=== PATIENT | female | born 2000 | race Caucasian/White ===

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

== ENCOUNTER 2021-12-25 16:22 | Emergency (ER) | payer OTHER, SELFPAY ==
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
[2021-12-25 16:36] VITALS: BP 116/68; PULSE 55; RESP 16; TEMP 36.8; O2SAT 100
[2021-12-25] MEDS: SILVER SULFADIAZINE 1% CR 50 GM JAR (*BKC) 1 APPLIC TOPICAL (17:01)
== END 2021-12-25 17:14 | disposition home or self-care (01) ==
PROVIDERS: Emergency Provider Nurse Practitioner
DX: T23.272A Burn of second degree of left wrist, initial encounter (principal); X11.8XXA Contact with other hot tap-water, initial encounter; F41.9 Anxiety disorder, unspecified
CPT/HCPCS: 99213; A9270; G0463

== ENCOUNTER 2022-08-29 07:19 | Emergency (ER) | payer BC, SELFPAY ==
[2022-08-29] VITALS (28 sets, daily range): BP systolic 109–143; BP diastolic 60–108; PULSE 73–114; RESP 13–24; TEMP 36.4; O2SAT 98–100
--- NOTE | 2022-08-29 07:47 | ECG_ITS ---
Measurements Intervals [place] Rate: 94 P: 75 AK: 142 QRS: 69 QRSD: 75 T: 30 QT: 380 QTc: 477 Interpretive Statements SINUS RHYTHM NORMAL ECG NO PREVIOUS ECG AVAILABLE FOR COMPARISON Electronically Signed On 08-29-2022 8:10:14 CDT by Samuel Wang D.O.
--- NOTE | 2022-08-29 07:48 | ED.GENADULT ---
HPI - General Adult General Chief complaint: Unspecified Stated complaint: ? drug ingestion Time Seen by Provider: 08/29/22 07:33 History of Present Illness HPI narrative: 22-year-old female presented to the ED for evaluation of suspected drug ingestion. Family states that the patient appeared to be slurring her words and was altered this morning. Upon arrival to the ED patient is tachycardic has dry mouth and does appear to be mildly confused. Patient states that she did not take her medications to harm herself and has no suicidal ideation. Patient does take lorazepam and multiple psych medications at night. Patient admits to taking at least 150 mg of Benadryl last night. Related Data Home Medications Medication Instructions Recorded Confirmed dextroamphetamine-amphetamine 10 10 mg PO BID 12/25/21 12/25/21 mg tablet dextroamphetamine-amphetamine ER 20 mg PO DAILY 12/25/21 12/25/21 20 mg 24hr capsule,extend release lorazepam 1 mg tablet 1 mg PO DIRECTED 12/25/21 12/25/21 zaleplon 10 mg capsule 10 mg PO DAILY 12/25/21 12/25/21 Allergies Allergy/AdvReac Type Severity Reaction Status Date / Time No Known Allergies Allergy Verified 08/29/22 08:47 Review of Systems Review of Systems: All systems reviewed & are unremarkable except as noted in HPI and below PMFSH Past Medical History Medical History No pertinent past medical history Surgical History Surgical History No pertinent past surgical history Social History Social History Substance use type: marijuana Gender identity (if verbalized by the patient): Female Exam Narrative: APPEARANCE: Patient alert but altered HEAD: normocephalic, atraumatic. EYES: PERRLA/EOMI, nystagmus NOSE: Normal no drainage EARS:TMS clear with good light reflex. THROAT: Pharynx clear, no exudate. NECK: Supple. No adenopathy, no masses. RESPIRATORY: Airway patent, respirations nonlabored. Clear to auscultation bilaterally, no rales, rhonchi, wheezing. CARDIOVASCULAR: Tachycardia ABDOMINAL: Soft, nontender, nondistended, normal bowel sounds MUSCULOSKELETAL: Moves all extremities. Strength/ROM intact, No edema, No calf tenderness. NEURO: Alert. Cranial nerves II through XII intact. Grossly intact SKIN: Warm, dry. Normal Color Course Course Emergency Course: 22-year-old female presented ED for evaluation of altered mental status. Patient arrived with some tachycardia that did improve with rest. Patient is being treated with IV normal saline. Baseline labs are being checked and poison control was consulted. Patient was medically cleared by poison control. Patient's tachycardia resolved. Patient is more alert and appropriate. Patient was encouraged to only take medications as directed and to refrain from taking excessive Benadryl. All questions and concerns were addressed and patient was well-appearing at time of discharge. Vital Signs Vital signs: Vital Signs Temperature 97.5 F L 08/29/22 07:23 Pulse Rate 113 H 08/29/22 07:23 Respiratory Rate 17 08/29/22 07:23 Blood Pressure 143/108 H 08/29/22 07:23 Pulse Oximetry 100 08/29/22 07:23 Oxygen Delivery Room Air 08/29/22 07:23 Temperature 97.5 F L 08/29/22 07:23 Pulse Rate 88 08/29/22 13:03 Respiratory Rate 16 08/29/22 13:03 Blood Pressure 109/70 08/29/22 13:03 Pulse Oximetry 100 08/29/22 13:03 Oxygen Delivery Room Air 08/29/22 07:23 Medical Decision Making Differential Diagnosis Differential Diagnosis: Intentional overdose, accidental overdose, Benadryl overdose Vital Signs Vital Signs: Vital Signs Temperature 97.5 F L 08/29/22 07:23 Pulse Rate 113 H 08/29/22 07:23 Respiratory Rate 17 08/29/22 07:23 Blood Pressure 143/108 H 08/29/22 07:23 Pulse Oximetry 100 08/29/22 07:23 Oxy
[2022-08-29] MEDS: SODIUM CHLORIDE 0.9% IV 1,000 ML 999 ML IV CONT (08:03)
--- NOTE | 2022-08-29 08:08 | PC.NURSE ---
0755 spoke with Shazia from poison control, she recommends an EKG, testing labs (CK, Mg, CMP, CBC, UDS) and calling back with results. Case #[id number]
[2022-08-29 08:21] LABS: Basophils Percent Auto 0.6 % (0.2-1.2); Eosinophils Absolute Auto 0.1 K/mm3 (0-0.3); Eosinophils Percent Auto 2.5 % (0-4.4); Hematocrit 38.7 % (37.0-47.0); Hemoglobin 12.9 g/dL (12.0-15.0); Immature Granulocyte Absolute 0.01 K/mm3 (0.00-0.031); Immature Granulocyte Percent A 0.2 % (0-0.5); Lymphocytes Absolute Auto 1.16 K/mm3 (0.9-3.2); Lymphocytes Percent Auto 24.6 % (18.3-44.2); Mean Corpuscular HGB Conc 33.3 g/dl (32-36); Mean Corpuscular Hemoglobin 30.5 pg (26-34); Mean Corpuscular Volume 91.5 fl (80-100); Mean Platelet Volume 11.1 fl (7.4-10.4); Monocytes Absolute Auto 0.4 K/mm3 (0.1-0.6); Monocytes Percent Auto 7.4 % (2.6-8.5); Neutrophils Percent Auto 64.7 % (45.5-73.1); Platelet Count Result 219 k/mm3 (150-375); Red Blood Count 4.23 M/mm3 (4.2-5.4); Red Cell Distribution Width 12.2 % (11.5-14.5); White Blood Count 4.7 K/mm3 (4.5-10.0)
[2022-08-29 08:32] LABS: Acetaminophen < 10 ug/mL (10-30); Ethanol < 10 mg/dL (<10); Magnesium 1.8 mg/dL (1.6-2.3); Salicylate < 1.0 mg/dL (2-20)
[2022-08-29 08:33] LABS: Alanine Aminotransferase 26 U/L (6-35); Albumin Level 4.6 g/dL (3.5-5.1); Alkaline Phosphatase 53 U/L (38-126); Anion Gap 9 mmol/L (8-16); Aspartate Amino Transferase 28 U/L (14-36); Bilirubin,Total 0.3 mg/dL (0.2-1.3); Blood Urea Nitrogen 10 mg/dL (7-17); Calcium 8.9 mg/dL (8.4-10.2); Carbon Dioxide 24 mmol/L (22-30); Chloride 106 mmol/L (98-107); Creatine Kinase 54 U/L (30-135); Estimated CRCL calculation 74 ml/min; Estimated Glomerular Filt Rate > 60; Glucose 97 mg/dL (65-110); Potassium 3.5 mmol/L (3.4-5.0); Sodium 139 mmol/L (137-145)
[2022-08-29 08:49] LABS: Appearance Urine Clear (Clear); Bacteria Urine None Seen /hpf; Bilirubin Urine Negative (Negative); Blood Urine 1+ (Negative); Color Urine Yellow (Yellow); Glucose Urine UA Negative (Negative); Ketones Urine Negative (Negative); Leukocyte Esterase Ur Trace LEU/UL (Negative); Nitrate Urine Negative (Negative); Non Pathogenic Casts 0-2; Protein Urine Negative (Negative); RBC Urine 0-2 /hpf (0-2); Squamous Epithelial Cell Urine Occasional /hpf (Few); Urobilinogen Urine 0.2 mg/dL (<2.0)
[2022-08-29 09:07] LABS: Amphetamine Screen Urine Positive (Negative); Barbiturate Screen Urine Negative (Negative); Benzodiazepines Screen Urine Negative (Negative); Cannabinoid Screen Urine Negative (Negative); Cocaine Screen Urine Negative (Negative); Methadone Screen Urine Negative (Negative); Opiate Screen Urine Negative (Negative); Phencyclidine Screen Urine Negative (Negative)
[2022-08-29 09:20] LABS: Add Urine Microscopic? YES
--- NOTE | 2022-08-29 11:54 | ECG_ITS ---
Measurements Intervals [place] Rate: 74 P: 32 AK: 135 QRS: 89 QRSD: 68 T: 55 QT: 384 QTc: 427 Interpretive Statements SINUS RHYTHM BASELINE ARTIFACT- V6 NORMAL ECG COMPARED TO ECG 08/29/2022 08:05:28 NO SIGNIFICANT CHANGES Electronically Signed On 08-29-2022 11:59:05 CDT by Samuel Wang D.O.
--- NOTE | 2022-08-29 12:03 | PC.NURSE ---
Anju spoke with Hellen from poison control, she stated after the recent EKG results that she was going to close the case at the pts 6 hour santosh ([id number]).
== END 2022-08-29 13:05 | disposition home or self-care (01) ==
PROVIDERS: Emergency Provider Emergency Medicine
DX: T45.0X1A Poisoning by antiallergic and antiemetic drugs, accidental (unintentional), initial encounter (principal); R47.81 Slurred speech; Z79.899 Other long term (current) drug therapy
CPT/HCPCS: 36415; 80053; 80307; 81001; 81025; 82550; 83735; 84443; 85025; 87086; 87147; 87181; 87186; 93005; 96360; 99283; J7030

== ENCOUNTER 2023-05-22 08:42 | Inpatient (IN) | payer BC, SELFPAY ==
[2023-05-22] VITALS (21 sets, daily range): BP systolic 92–121; BP diastolic 65–88; PULSE 70–120; RESP 8–26; TEMP 34.4–36.5; O2SAT 93–100; BMI 20.9
--- NOTE | ~2023-05-22 | XR_ITS ---
EXAMINATION: XR chest 1V DATE: 05/22/2023 11:38 INDICATION: Drug overdose. Low body temperature. TECHNIQUE: A single frontal view of the chest was obtained. COMPARISON: None. FINDINGS: There is no pneumonia, pleural effusion, or pneumothorax. The heart size is normal. IMPRESSION: 1. No acute cardiopulmonary disease. Reviewed, dictated and finalized at location A.
--- NOTE | ~2023-05-22 | XR_ITS ---
Portable chest x-ray Comparison: 05/25/2023 Clinical History: Respiratory failure Findings: Right-sided PICC line in place. Lungs remain clear. Cardiomediastinal silhouette is stabl e. Bones and soft tissues are unremarkable. Impression: Clear lungs. Right-sided PICC line. Reviewed, dictated and finalized at location . Impression: Clear lungs. Right-sided PICC line.
--- NOTE | ~2023-05-22 | XR_ITS ---
XR chest 1V portable DATE: 05/24/2023 05:31 INDICATION: Respiratory failure TECHNIQUE: Portable AP chest on May 24, 2023 at 0515 hours COMPARISON: May 23, 2023 portable AP chest 1453 hours May 23, 2023 CT chest abdomen pelvis FINDINGS: There are bilateral mid and particularly lower lung zone infiltrates, most prominent in the lower lobes. Normal heart size. No pneumothorax is evident. There is an approximately 1.5 x 3 cm lucent defect of the proximal to mid right humeral shaft, with n arrow zone of transition, likely benign. IMPRESSION: Persistent bilateral pulmonary infiltrates, relatively stable since May 23, 2023 conside ring technical differences Reviewed, dictated and finalized at location A. IMPRESSION: Persistent bilateral pulmonary infiltrates, relatively stable since May 23, 2023 considering technical differences
--- NOTE | ~2023-05-22 | XR_ITS ---
Portable chest x-ray Comparison: 05/26/2023 Clinical History: Respiratory failure Findings: Right-sided PICC line in place. Lungs are clear. Cardiomediastinal silhouette is stable. Bones and soft tissues are unremarkable. Impression: Clear lungs. Stable right-sided PICC line. Reviewed, dictated and finalized at location . Impression: Clear lungs. Stable right-sided PICC line.
--- NOTE | ~2023-05-22 | XR_ITS ---
EXAMINATION: XR chest 1V portable Exam Date/Time: 05/23/2023 14:45 CDT HISTORY: SOB Comparison: CT abdomen pelvis 05/23/2023. RESULT: Lines, tubes, and devices: None. Lungs and pleura: Diffuse reticular and patchy mid and lower lung groundglass and consolidative opac ities bilaterally. Small bilateral fluid collections. Cardiomediastinal silhouette: Stable. Other: No acute osseous or upper abdominal finding. IMPRESSION: Pulmonary opacities most likely represent pulmonary edema. Infection is not excluded. Small bilateral effusions. Reviewed, dictated and finalized at location K. IMPRESSION: Pulmonary opacities most likely represent pulmonary edema. Infection is not exc luded. Small bilateral effusions.
--- NOTE | ~2023-05-22 | CT_ITS ---
EXAMINATION: CT chest abdomen pelvis wo con DATE: 05/23/2023 10:27 INDICATION: Cough. Abdominal pain. Leukocytosis. TECHNIQUE: Computed tomography (CT) of the chest, abdomen, and pelvis was performed without intraveno us contrast. Automated exposure control and iterative reconstruction technique were employed. The dos e-length product was 306.95 mGy-cm. COMPARISON: None FINDINGS: CHEST CT: There are small pleural effusions, right worse than left. There are patchy groundglass and airspace o pacities in the upper lobes and lower lobes, worse in the lower lobes. The heart size is normal. No p ericardial effusion. ABDOMEN/PELVIS CT: The liver and spleen are normal. The gallbladder is normal in size. The pancreas, adrenal glands, and kidneys are normal. There are no dilated loops of bowel. The appendix is not visualized. There are n o pathologically enlarged lymph nodes. There is a moderate volume of ascites. There is mild lumbar sp ondylosis. IMPRESSION: 1. Diffuse lung disease with a posterior predominance, consistent with pneumonia versus pulmonary sharon ma. 2. Small pleural effusions. 3. Moderate volume of ascites. Reviewed, dictated and finalized at location A. IMPRESSION: 1. Diffuse lung disease with a posterior predominance, consistent with pneumoni a versus pulmonary edema. 2. Small pleural effusions. 3. Moderate volume of ascites.
--- NOTE | ~2023-05-22 | XR_ITS ---
XR chest PICC line DATE: 05/25/2023 09:33 INDICATION: PICC line placement TECHNIQUE: Portable AP chest on 05/25/2023 at 0933 hours COMPARISON: 05/25/2023 portable AP chest at 0517 hours FINDINGS: Interval placement right upper extremity PIC catheter, distal tip overlying the lower aspec t of the superior vena cava. Normal heart size. Persistent bilateral pulmonary infiltrates and mild prominence of minor fissure an d some Magdy B-lines, suggesting subpleural and pulmonary interstitial edema. Left costophrenic angl es excluded. Slight blunting of the right costophrenic angle consistent with small right pleural effu esa. Benign-appearing lytic lesion of the mid right humeral shaft. IMPRESSION: Right upper extremity PIC catheter tip overlying the lower aspect of superior vena cava Reviewed, dictated and finalized at Location A. Reviewed, dictated and finalized at location A. IMPRESSION: Right upper extremity PIC catheter tip overlying the lower aspect o f superior vena cava
--- NOTE | ~2023-05-22 | XR_ITS ---
XR chest 1V portable DATE: 05/25/2023 05:28 INDICATION: Respiratory failure TECHNIQUE: Portable AP chest on May 25, 2023 at 0517 hours COMPARISON: May 24, 2023 portable AP chest at 0515 hours FINDINGS: No significant interval change of bilateral predominantly mid and lower lung zone infiltrat es. Normal heart size. Small pleural effusions. Mild prominence of the minor fissure suggests subpleural edema. IMPRESSION: Little interval change since May 24, 2023 Reviewed, dictated and finalized at location A.
--- NOTE | 2023-05-22 09:07 | ECG_ITS ---
Measurements Intervals [place] Rate: 107 P: 75 DC: 147 QRS: 66 QRSD: 81 T: 37 QT: 342 QTc: 457 Interpretive Statements SINUS TACHYCARDIA LEFT ATRIAL ENLARGEMENT [-0.15mV P WAVE IN V1/V2] COMPARED TO ECG 08/29/2022 11:57:39 SINUS TACHYCARDIA NOW PRESENT Electronically Signed On 05-22-2023 11:05:17 CDT by Luis Manuel Sanabria M.D.
--- NOTE | 2023-05-22 09:35 | PC.NURSE ---
0934: Pt states she for sure snorted cocaine this morning around 0700 along with oxycodone.
--- NOTE | 2023-05-22 09:37 | PC.NURSE ---
0934 This RN reassessed pt and found her to be A&Ox4. Pt states feeling safe at home and denies wanting to harm herself or others at this time.
[2023-05-22 09:56] LABS: Basophils Absolute Auto 0.1 K/mm3 (0.0-0.1); Basophils Percent Auto 0.3 % (0.2-1.2); Eosinophils Absolute Auto 0.1 K/mm3 (0-0.3); Eosinophils Percent Auto 0.3 % (0-4.4); Hematocrit 51.5 % (37.0-47.0); Hemoglobin 15.7 g/dL (12.0-15.0); Immature Granulocyte Absolute 1.06 K/mm3 (0.00-0.031); Immature Granulocyte Percent A 3.5 % (0-0.5); Lymphocytes Absolute Auto 1.91 K/mm3 (0.9-3.2); Lymphocytes Percent Auto 6.3 % (18.3-44.2); Mean Corpuscular HGB Conc 30.5 g/dl (32-36); Mean Corpuscular Hemoglobin 29.3 pg (26-34); Mean Corpuscular Volume 96.1 fl (80-100); Mean Platelet Volume 10.9 fl (7.4-10.4); Monocytes Absolute Auto 0.5 K/mm3 (0.1-0.6); Monocytes Percent Auto 1.6 % (2.6-8.5); Neutrophils Absolute Auto 26.9 K/mm3 (1.3-6.7); Platelet Count Result 315 k/mm3 (150-375); Red Blood Count 5.36 M/mm3 (4.2-5.4); Red Cell Distribution Width 12.6 % (11.5-14.5); White Blood Count 30.5 K/mm3 (4.5-10.0)
[2023-05-22] MEDS: NALOXONE HCL 0.4 MG/ML VIAL IV PUSH (10:01)
[2023-05-22] MEDS: SODIUM CHLORIDE 0.9% IV 1,000 ML 999 ML IV CONT (10:01)
[2023-05-22 10:07] LABS: Alanine Aminotransferase 82 U/L (6-35); Albumin Level 5.2 g/dL (3.5-5.1); Alkaline Phosphatase 100 U/L (38-126); Anion Gap 17 mmol/L (4-12); Aspartate Amino Transferase 168 U/L (14-36); Bilirubin,Total 0.4 mg/dL (0.2-1.3); Blood Urea Nitrogen 11 mg/dL (7-17); Calcium 9.6 mg/dL (8.4-10.2); Carbon Dioxide 20 mmol/L (22-30); Chloride 106 mmol/L (98-107); Estimated Glomerular Filt Rate > 60; Glucose 236 mg/dL (65-110); Sodium 143 mmol/L (137-145)
[2023-05-22 10:08] LABS: Appearance Urine Clear (Clear); Bilirubin Urine Negative (Negative); Blood Urine 3+ (Negative); Color Urine Yellow (Yellow); Glucose Urine UA 3+ mg/dL (Negative); Ketones Urine Negative (Negative); Leukocyte Esterase Ur Negative LEU/UL (Negative); Nitrate Urine Negative (Negative); Protein Urine 1+ mg/dL (Negative); Specific Grav Ur 1.019 (1.001-1.035); Urobilinogen Urine 0.2 mg/dL (<2.0)
[2023-05-22 10:17] LABS: Amphetamine Screen Urine Positive (Negative); Barbiturate Screen Urine Negative (Negative); Benzodiazepines Screen Urine Negative (Negative); Cannabinoid Screen Urine Positive (Negative); Cocaine Screen Urine Positive (Negative); Methadone Screen Urine Negative (Negative); Opiate Screen Urine Negative (Negative); Phencyclidine Screen Urine Negative (Negative)
[2023-05-22 10:18] LABS: Acetaminophen < 10 ug/mL (10-30); Ethanol < 10 mg/dL (<10); Salicylate < 1.0 mg/dL (2-20)
[2023-05-22 10:23] LABS: Add Urine Microscopic? YES; WBC Urine 0-3 /hpf (0-3)
[2023-05-22 10:24] LABS: Squamous Epithelial Cell Urine Occasional /hpf (Few)
[2023-05-22 10:39] LABS: SARS-CoV-2 RNA PCR Negative (Negative)
[2023-05-22 11:05] LABS: Alveolar/Arterial O2 Gradient 18.8 mmHg; Base Excess ABG -5.7 mEq/l (+/-2.0); Carboxyhemoglobin 6.3 % THb (0-2.0); Fractional Inspired Oxygen 21 %; HCO3 ABG 21.7 mEq/l (22.0-26.0); Methemoglobin ABG 2.2 %THb (0-1.5); Oxygen Saturation ABG 91.8 % (95.0-100.0); PCO2 ABG 49.8 mmHg (35.0-45.0); PO2 ABG 71.3 mmHg (80.0-100.0); Reduced Hemoglobin 5.1 %THb (0-5.0)
[2023-05-22 11:06] LABS: pH ABG 7.258 (7.350-7.450)
[2023-05-22 11:07] LABS: Modified Allen's Test Pass; Oxyhemoglobin 86.4 % THb (90.0-100.0); Site Drawn LEFT RADIAL; Total Hemoglobin 5.5 g/dL (12.0-18.0)
[2023-05-22 12:35] LABS: Lactic Acid Reflex 1.7 mmol/L (0.7-2.0)
--- NOTE | 2023-05-22 12:35 | ED.GENADULT ---
HPI - General Adult General Chief complaint: Overdose Stated complaint: ams Time Seen by Provider: 05/22/23 08:47 History of Present Illness HPI narrative: patient is a 22-year-old female who presents ER with altered mental status. She was supposed to go to drug rehabilitation this morning but when her family checked on her she is acutely altered. She reports she hit that she is having trouble hearing but she seems to follow commands. She continues to say the words oxycodone. She cannot give any other history at this time. Patient is cool to touch. Family reports that patient takes drugs get high but does not have depression or intentional self-harm behavior. Related Data Home Medications Medication Instructions Recorded Confirmed dextroamphetamine-amphetamine 10 20 mg PO DAILY 12/25/21 05/22/23 mg tablet lorazepam 1 mg tablet 2 mg PO HS 12/25/21 05/22/23 cariprazine 3 mg capsule (Vraylar) 3 mg PO HS 05/22/23 05/22/23 mirtazapine 15 mg tablet 15 mg PO HS 05/22/23 05/22/23 Allergies Allergy/AdvReac Type Severity Reaction Status Date / Time No Known Allergies Allergy Verified 05/22/23 12:59 Review of Systems Review of Systems: ROS unobtainable: Yes unobtainable due to medical condition PMFSH Past Medical History Medical History Accidental overdose ADHD Bipolar 1 disorder Dental caries No pertinent past medical history Substance abuse Surgical History Surgical History H/O wisdom tooth extraction History of umbilical hernia repair No pertinent past surgical history Family History Family History (Updated 05/22/23 @ 17:09 by Addis Mariscal RN) Other Unknown family medical history Social History Social History (Updated 05/22/23 @ 15:16 by Shauna Ayala APRN) Social History: She lives with her father, mother, and sister at home. She recently quit her job at [employer] and is currently unemployed and is not currently in school. Years smoked: 5 Smoking status: Current every day smoker Tobacco type: e-cigarettes/vaping Alcohol intake: current Drinks per week: 2 Alcohol use details: Beer Substance use: current Substance use type: marijuana, crack/cocaine and prescription drug Do You Feel Safe in your Home?: Yes Lack of Transportation: No Lack of Food: Never True Current Housing: I Have Housing Concerned About Future Housing: No Difficulty Paying Gas/Electric Bills: No Difficulty Paying for Meds: No Currently Unemployed: No Education: High School Diploma/GED Difficulty w/ Childcare or Family Care: No Living arrangements: with family Occupation/Education: unemployed Gender identity (if verbalized by the patient): Female Sexual Orientation (if Verbalized by the Patient): Lesbian, Dudley, or Homosexual Spiritual care concerns: No Exam Narrative: GENERAL: Well-appearing, well-nourished, and in no acute distress. HEAD: Normocephalic, atraumatic. EYES: PERRL and EOMI. ENT: Mucous membranes moist. NECK: Supple. CHEST: Clear to auscultation. No respiratory distress. HEART: Tachycardic and regular. Normal peripheral pulses. ABDOMEN: Soft, nontender, nondistended. EXTREMITIES: Normal range of motion. No edema. SKIN: Cool, dry, no rash. NEURO: awake alert, intermittently follows commands. Will not answer orientation questions. Course Course Emergency Course: Patient given small dose of Narcan given possibility of opiate abuse. Minimal change. With time patient is now alert orient x3. Denies self-harm behavior. Patient has had some lower blood pressures in the 90s. She has received a 30 milliliter/kilogram IV fluid bolus. Patient is having no shortness of breath. She does have significant leukocytosis. ABG with a hemoglobin of 5 g/dl which does not correlate with the CBC. Patient is eating and drinking without issue. No hypo
[2023-05-22] MEDS: LACTATED RINGERS 1,000 ML 125 ML IV CONT ×2 (14:28→22:31)
--- NOTE | 2023-05-22 14:44 | PM.IMHP ---
H&P: HPI History of Present Illness Date/Time: 05/22/23 14:44 Chief Complaint: Accidental overdose Narrative: This is a 22-year-old female with a past medical history of bipolar disorder, ADHD, and substance abuse presented to the ER via private vehicle after her father found her this morning unresponsive and barely breathing. Her father Cruz, was unable to arouse her with physical stimulation and stated she was cold to the touch and gasping for air. His called 911 but he did not want to wait so he carried her to the car and brought her to the ER. On arrival to the ER she was altered and lethargic, repeating oxycodone . She was hypothermic at 93.9, blood pressure 96/83, heart rate 116. Her labs were remarkable for a white count of 3.5, hemoglobin 15.7, hematocrit 51.5, creatinine 1.10, AST 168, and ALT 82. Urine drug screen was positive for cocaine, cannabinoids, and amphetamines but the patient is currently on Adderall. She received a 2.9 L fluid bolus and naloxone 0.4 mg x 1 with little improvement. On exam the patient is resting in ER stretcher with her father, Cruz is at the bedside. The patient provides the history along with her father. Patient was set to go to [facility] in [place] today. She has a history of substance abuse citing her drug of choice of as oxycodone. Last night she met with a friend and per the patient they snorted oxycodone and cocaine. She states she has been abusing oxycodone for the last two years. She also reports vaping tobacco and drinking approximately 2 beers a week. She denies a history of IV drug use. The patient denies thoughts of wanting to harm herself or others and insists this was not an attempt to end her life. She states she has been hospitalized two other times for accidental overdoses. She has never had a suicide attempt. Her father states that her Adderall and zaleplon are kept locked up at home and he or the patient's mother dispense the medication. On exam she is drowsy but answers my questions appropriately. She denies headache, dizziness, chest pain, shortness of breath. She reports generalized abdominal pain and nausea. She denies constipation or diarrhea. She will be admitted for observation to IMU for fluid hydration and telemetry monitoring. I anticipate discharging her tomorrow to her rehab facility. The electrical contacts adjuster for [facility] of [place] is Tanja Aguirre and she saw the patient in the ED today. On discharge the facility will need medical records faxed to the admissions department. Fax number is [phone]. The cell phone for Tanja is [phone]. Review of Systems Review of Systems: All systems reviewed & are unremarkable except as noted in HPI and below PMFSH Past Medical History Medical History Accidental overdose ADHD Bipolar 1 disorder Dental caries No pertinent past medical history Substance abuse Surgical History Surgical History H/O wisdom tooth extraction History of umbilical hernia repair No pertinent past surgical history Social History Social History (Updated 05/22/23 @ 15:16 by Shauna Ayala APRN) Social History: She lives with her father, mother, and sister at home. She recently quit her job at [employer] and is currently unemployed and is not currently in school. Years smoked: 5 Smoking status: Current every day smoker Tobacco type: e-cigarettes/vaping Alcohol intake: current Drinks per week: 2 Alcohol use details: Beer Substance use: current Substance use type: marijuana, opiates and painkillers Do You Feel Safe in your Home?: Yes Lack of Transportation: No Lack of Food: Never True Current Housing: I Do Not Have Housing Concerned About Future Housing: No Difficulty Paying Gas/Electric Bills: No Difficulty Paying for Meds: No Currently Unemployed: YES Living arrangements
--- NOTE | 2023-05-22 15:26 | ADMGEN ---
This patient, Luli Veliz, was admitted to IMU Room 231-01 @ 1515. Patient/family oriented to hospital policies and general routines including ID bracelet, bed and alarms, visiting hours, pain management, procedures, bathroom and other care routines, personal items, smoking policy, room service/diet, and visiting hours. Information on how to activate the Rapid Response Team has been discussed. Patient/Family are encouraged to report perceived risks to care and to ask questions if they do not understand what they are told or what they should do.
[2023-05-22 18:25] LABS: Glucose Point of Care 116 mg/dl (65-105)
[2023-05-22] MEDS: ONDANSETRON INJ 4 MG/2 ML VIAL IV PUSH (19:34)
[2023-05-23] VITALS (38 sets, daily range): BP systolic 112–134; BP diastolic 73–110; PULSE 86–135; RESP 3–22; TEMP 36.4–37.4; O2SAT 82–98
--- NOTE | 2023-05-23 | ECHO_ITS ---
Patient Info Name: Luli Veliz Age: 22 years : 2000 Gender: Female Ht: 64 in Wt: 122 lbs BSA: 1.58 m2 HR: 110 bpm BP: 112 / 80 mmHg Heart Rhythm: Tachycardia Technical Quality: Poor Exam Date: 05/23/2023 3:42 PM Exam Location: Echo Lab Patient Status: Inpatient Admit Date: 05/23/2023 Staff Ordering Physician: Shauna Ayala APRN Collection Specialist: Jenn Montoya RDCS Attending Provider: Niki Hou MD Referring Physician: Jamie KOEHLER; Exam Type: CA echo dop color flow w con Study Info Indications - chest pain Complete two-dimensional, color flow and Doppler transthoracic echocardiogram is performed with contrast to opacify the left ventricle and to improve the deliniation of the left ventricle endocardial borders. Contrast/Agitated Saline Contrast/Ag. Saline: Definity Amount: 3.00 ml Reason for Poor Study: poor patient cooperation Summary 1. Technically difficult study with limited views. 2. Left ventricular chamber dimension is normal. 3. Left ventricular systolic function is severely reduced, estimated at <15%. There is severe hypokinesis of the mid to distal LV. 4. Right ventricular systolic function is reduced. 5. There is mild tricuspid valve regurgitation. 6. Normal inferior vena cava with <50% collapse upon inspiration consistent with elevated right atrial pressure, 8 mmHg. Left Ventricle Left ventricular chamber dimension is normal. Left ventricular systolic function is severely reduced, estimated at <15%. There is severe hypokinesis of the mid to distal LV. There is no increased left ventricular wall thickness. Right Ventricle Right ventricular chamber dimension is normal. Right ventricular systolic function is reduced. Left Atria Left atrial chamber dimension is normal. Right Atria Right atrial chamber dimension is normal. Atrial Septum Intact interatrial septum visualized by color flow imaging. Aortic Valve The aortic valve is not well visualized. There is no aortic valve stenosis. There is no aortic valve regurgitation. Pulmonic Valve The pulmonic valve is not well visualized. There is trace pulmonic regurgitation. Mitral Valve There is trace mitral valve regurgitation. Tricuspid Valve There is mild tricuspid valve regurgitation. Pericardium/Pleural There is no pericardial effusion. Inferior Vena Cava Normal inferior vena cava with <50% collapse upon inspiration consistent with elevated right atrial pressure, 8 mmHg. Aorta The aortic root size at the sinus of Valsalva is normal. Left Ventricular Outflow Tract Name Value Normal LVOT 2D LVOT Diameter 1.80 cm LVOT Doppler LVOT Peak Gradient 1 mmHg LVOT Mean Gradient 1 mmHg LVOT VTI 7.27 cm LVOT VTI/AV VTI Ratio 0.68 LVOT Stroke Volume 18.49 ml LVOT CO 1.93 l/min LVOT CI 1.22 L/min/m2 Pulmonic Valve Name Value Normal
[2023-05-23 00:05] LABS: Glucose Point of Care 134 mg/dl (65-105)
[2023-05-23] MEDS: ONDANSETRON INJ 4 MG/2 ML VIAL IV PUSH (04:49)
[2023-05-23 05:05] LABS: Basophils Percent Auto 0.2 % (0.2-1.2); Hematocrit 35.5 % (37.0-47.0); Hemoglobin 11.8 g/dL (12.0-15.0); Immature Granulocyte Absolute 0.18 K/mm3 (0.00-0.031); Immature Granulocyte Percent A 0.9 % (0-0.5); Lymphocytes Absolute Auto 0.84 K/mm3 (0.9-3.2); Lymphocytes Percent Auto 4.2 % (18.3-44.2); Mean Corpuscular HGB Conc 33.2 g/dl (32-36); Mean Corpuscular Hemoglobin 29.9 pg (26-34); Mean Corpuscular Volume 89.9 fl (80-100); Mean Platelet Volume 11.6 fl (7.4-10.4); Monocytes Absolute Auto 0.6 K/mm3 (0.1-0.6); Monocytes Percent Auto 3.1 % (2.6-8.5); Neutrophils Absolute Auto 18.3 K/mm3 (1.3-6.7); Neutrophils Percent Auto 91.6 % (45.5-73.1); Platelet Count Result 220 k/mm3 (150-375); Red Blood Count 3.95 M/mm3 (4.2-5.4); Red Cell Distribution Width 12.7 % (11.5-14.5)
[2023-05-23 05:20] LABS: Alanine Aminotransferase 40 U/L (6-35); Albumin Level 3.6 g/dL (3.5-5.1); Alkaline Phosphatase 60 U/L (38-126); Anion Gap 8 mmol/L (4-12); Aspartate Amino Transferase 61 U/L (14-36); Bilirubin,Total 0.4 mg/dL (0.2-1.3); Blood Urea Nitrogen 12 mg/dL (7-17); Calcium 8.1 mg/dL (8.4-10.2); Carbon Dioxide 19 mmol/L (22-30); Chloride 104 mmol/L (98-107); Estimated CRCL calculation 108 ml/min; Estimated Glomerular Filt Rate > 60; Glucose 138 mg/dL (65-110); Magnesium 1.6 mg/dL (1.6-2.3); Potassium 4.3 mmol/L (3.4-5.0); Sodium 131 mmol/L (137-145)
[2023-05-23 06:19] LABS: Glucose Point of Care 132 mg/dl (65-105)
[2023-05-23] MEDS: LACTATED RINGERS 1,000 ML 125 ML IV CONT (07:00)
--- NOTE | 2023-05-23 09:20 | ECG_ITS ---
Measurements Intervals [place] Rate: 109 P: 89 TX: 127 QRS: 80 QRSD: 69 T: 120 QT: 335 QTc: 452 Interpretive Statements SINUS TACHYCARDIA POSSIBLE LEFT ATRIAL ENLARGEMENT [-0.1mV P WAVE IN V1/V2] NONSPECIFIC ST & T-WAVE ABNORMALITY ABNORMAL RHYTHM ECG COMPARED TO ECG 05/22/2023 09:31:10 NONSPECIFIC T-WAVE ABNORMALITY IS NOW SEEN Electronically Signed On 05-23-2023 12:32:54 CDT by Woody Negrete M.D.
[2023-05-23] MEDS: KETOROLAC 30 MG/ML VIAL (*BKC) IV PUSH ×2 (09:37→15:04)
[2023-05-23] MEDS: FUROSEMIDE INJ 40 MG/4 ML VIAL IV PUSH ×2 (11:38→18:10)
--- NOTE | 2023-05-23 11:43 | P.PNIM_ITS ---
Progress Note: A&P Assessment and Plan (1) Acute respiratory failure: Code(s): J96.00 - Acute respiratory failure, unspecified whether with hypoxia or hypercapnia Status: Acute Assessment and Plan: SpO2 59% on room air * CT chest shows diffuse lung disease with posterior dominance, consistent with pneumonia versus pulmonary edema * Complaints of shortness of breath * Stop IV fluids * On non-rebreather * Stat IV Lasix 40 mg IV push * Alanis placed for accurate I and O * Started on CAP with aspiration coverage * Blood cultures ordered * Lactic is 2.6 * ABG pH 7.4, pCO2 32.5, PO2 58.2, HC03 22.3 * COVID negative, viral panel added. Patient and family report recent upper respiratory illness at home. (2) Accidental overdose: Code(s): T50.901A - Poisoning by unspecified drugs, medicaments and biological substances, accidental (unintentional), initial encounter Status: Acute Assessment and Plan: Reports snorting oxycodone and cocaine * Dehydrated on labs. Leukocytosis 30.5, hemoglobin 15.7, hematocrit 51.5. Cr 1.10. * Received 2.9 L NS in the ED * Currently on LR at 125 ml per hour * BP 93/65, HR 120, RR 16, 97.3, and 96% on room air * CIWA * Telemetry ordered * Admit to IMU for observation (3) Substance abuse: Code(s): F19.10 - Other psychoactive substance abuse, uncomplicated Status: Acute (4) Sepsis: Code(s): A41.9 - Sepsis, unspecified organism Status: Acute Assessment and Plan: Leukocytosis, tachycardia, tachypnea, elevated LFTs * Fluid resuscitated in the ER * Received 2900 ml as well as maintenance fluids * Fluid stopped in setting of acute respiratory failure * Lactic 2.6 * Blood cultures pending * Started on cap with aspiration pneumonia coverage * Procalcitonin is 6.5 * CRP 3.9 * Legionella and pneumococcal urine antigen as well as IgM mycoplasma have been sent (5) Congestive heart failure: Code(s): I50.9 - Heart failure, unspecified Status: Acute Assessment and Plan: CT abdomen and pelvis shows moderate ascites, CT chest shows pulmonary edema and pleural effusion * Troponins elevated 1.3 * Elevated BNP * Patient denies chest pain * EKG shows sinus tach with nonspecific T-wave changes * Echocardiogram ordered * Received ASA 324 mg p.o. once (6) Elevated troponin: Code(s): R79.89 - Other specified abnormal findings of blood chemistry Status: Acute Assessment and Plan: See 5 Plan Transferred ICU Subjective Date/time seen: 05/23/23 11:43 Interval history: This is a 22-year-old female with a past medical history of bipolar disorder, ADHD, and substance abuse presented to the ER via private vehicle after her father found her this morning unresponsive and barely breathing.? Interval history: 05/22: Received a call from nursing saying that the patient was having increased abdominal pain. On assessment patient is alert and oriented x4 but drowsy. She says that she has the same generalized abdominal pain as yesterday but it is worse today. Nursing she has had a dry cough. She has a persistent leukocytosis of 20 k/mm despite fluid hydration. She has remained afebrile overnight. I ordered a CT chest, abdomen, and pelvis to further investigate abdominal pain and leukocytosis. 1111- CT came back showing diffuse lung disease with posterior dominance, consistent with pneumonia versus pulmonary edema, bilateral small pleural effusions, and moderate volume of ascites. I will stop her IV fluids and start her
--- NOTE | 2023-05-23 11:43 | PM.IMPN ---
Progress Note: A&P Assessment and Plan (1) Acute respiratory failure: Code(s): J96.00 - Acute respiratory failure, unspecified whether with hypoxia or hypercapnia Status: Acute Assessment and Plan: SpO2 59% on room air CT chest shows diffuse lung disease with posterior dominance, consistent with pneumonia versus pulmonary edema Complaints of shortness of breath Stop IV fluids On non-rebreather Stat IV Lasix 40 mg IV push Alanis placed for accurate I and O Started on CAP with aspiration coverage Blood cultures ordered Lactic is 2.6 ABG pH 7.4, pCO2 32.5, PO2 58.2, HC03 22.3 COVID negative, viral panel added. Patient and family report recent upper respiratory illness at home. (2) Accidental overdose: Code(s): T50.901A - Poisoning by unspecified drugs, medicaments and biological substances, accidental (unintentional), initial encounter Status: Acute Assessment and Plan: Reports snorting oxycodone and cocaine Dehydrated on labs. Leukocytosis 30.5, hemoglobin 15.7, hematocrit 51.5. Cr 1.10. Received 2.9 L NS in the ED Currently on LR at 125 ml per hour BP 93/65, HR 120, RR 16, 97.3, and 96% on room air CIWA Telemetry ordered Admit to IMU for observation (3) Substance abuse: Code(s): F19.10 - Other psychoactive substance abuse, uncomplicated Status: Acute (4) Sepsis: Code(s): A41.9 - Sepsis, unspecified organism Status: Acute Assessment and Plan: Leukocytosis, tachycardia, tachypnea, elevated LFTs Fluid resuscitated in the ER Received 2900 ml as well as maintenance fluids Fluid stopped in setting of acute respiratory failure Lactic 2.6 Blood cultures pending Started on cap with aspiration pneumonia coverage Procalcitonin is 6.5 CRP 3.9 Legionella and pneumococcal urine antigen as well as IgM mycoplasma have been sent (5) Congestive heart failure: Code(s): I50.9 - Heart failure, unspecified Status: Acute Assessment and Plan: CT abdomen and pelvis shows moderate ascites, CT chest shows pulmonary edema and pleural effusion Troponins elevated 1.3 Elevated BNP Patient denies chest pain EKG shows sinus tach with nonspecific T-wave changes Echocardiogram ordered Received ASA 324 mg p.o. once (6) Elevated troponin: Code(s): R79.89 - Other specified abnormal findings of blood chemistry Status: Acute Assessment and Plan: See 5 Plan Transferred ICU Subjective Date/time seen: 05/23/23 11:43 Interval history: This is a 22-year-old female with a past medical history of bipolar disorder, ADHD, and substance abuse presented to the ER via private vehicle after her father found her this morning unresponsive and barely breathing.? Interval history: 05/22: Received a call from nursing saying that the patient was having increased abdominal pain. On assessment patient is alert and oriented x4 but drowsy. She says that she has the same generalized abdominal pain as yesterday but it is worse today. Nursing she has had a dry cough. She has a persistent leukocytosis of 20 k/mm despite fluid hydration. She has remained afebrile overnight. I ordered a CT chest, abdomen, and pelvis to further investigate abdominal pain and leukocytosis. 1111- CT came back showing diffuse lung disease with posterior dominance, consistent with pneumonia versus pulmonary edema, bilateral small pleural effusions, and moderate volume of ascites. I will stop her IV fluids and start her on CAP treatment. I came to the bedside to discuss CT results and she was getting her vitals taken showing an SpO2 of 59% on room air. Her color does appear dusky and she is tachycardic in the 120s. Lung sounds are severely diminished posteriorly with crackles in the bilateral bases. Patient was placed on 6 L nasal cannula and her sats only improved to the low 80s. She was then placed on non-rebreather. ABG shows PO2 of 58, otherwise n
[2023-05-23 11:44] LABS: Alveolar/Arterial O2 Gradient 622.3 mmHg; Base Excess ABG -0.9 mEq/l (+/-2.0); Carboxyhemoglobin 0.3 % THb (0-2.0); Fractional Inspired Oxygen 100 %; HCO3 ABG 22.3 mEq/l (22.0-26.0); Methemoglobin ABG 0.3 %THb (0-1.5); Oxygen Content ABG 15.7 %vol (16.0-22.0); Oxygen Saturation ABG 91.8 % (95.0-100.0); Oxyhemoglobin 89.2 % THb (90.0-100.0); PCO2 ABG 32.5 mmHg (35.0-45.0); PO2 ABG 58.2 mmHg (80.0-100.0); PO2 FiO2 Ratio Arterial Blood 0.58 %; Reduced Hemoglobin 10.2 %THb (0-5.0); Total Hemoglobin 12.5 g/dL (12.0-18.0); pH ABG 7.454 (7.350-7.450)
[2023-05-23 11:49] LABS: Device NON-REBREATHER MASK; Modified Allen's Test Pass; Site Drawn LEFT RADIAL
[2023-05-23 12:07] LABS: Glucose Point of Care 109 mg/dl (65-105)
[2023-05-23 12:28] LABS: Lactic Acid Reflex 2.6 mmol/L (0.7-2.0)
[2023-05-23 12:31] LABS: Alanine Aminotransferase 43 U/L (6-35); Alkaline Phosphatase 66 U/L (38-126); Anion Gap 5 mmol/L (4-12); Aspartate Amino Transferase 66 U/L (14-36); Bilirubin,Total 0.4 mg/dL (0.2-1.3); Blood Urea Nitrogen 11 mg/dL (7-17); Calcium 8.1 mg/dL (8.4-10.2); Carbon Dioxide 26 mmol/L (22-30); Chloride 102 mmol/L (98-107); Estimated CRCL calculation 108 ml/min; Estimated Glomerular Filt Rate > 60; Glucose 114 mg/dL (65-110); Sodium 133 mmol/L (137-145)
[2023-05-23 13:12] LABS: NT Pro B Type Natriuretic Pept 8570 pg/mL (19.9-100)
[2023-05-23] MEDS: cefTRIAXone 2 GM/NS 100 ML 2 GM/100 ML BAG IVPB (13:12)
[2023-05-23] MEDS: metroNIDAZOLE 500 MG TABLET PO (13:13)
[2023-05-23] MEDS: AZITHROMYCIN 500 MG/NS 250 ML 500 MG/250 ML BAG 250 MG IVPB (13:16)
[2023-05-23 13:30] LABS: Procalcitonin 6.5 ng/mL
[2023-05-23 13:38] LABS: CRP 3.9 mg/dL (<1.0)
[2023-05-23] MEDS: LEVALBUTEROL NEB 1.25 MG/3 ML INHALATION ×2 (13:44→20:19)
[2023-05-23 15:14] LABS: Reflex Lactic Acid Yes or No Add Lactic
--- NOTE | 2023-05-23 15:14 | WPDCNINT ---
Assessment and Plan Assessment and plan (1) Acute respiratory failure: Code(s): J96.00 - Acute respiratory failure, unspecified whether with hypoxia or hypercapnia Status: Acute Assessment and Plan: Gradually worsening hypoxia after admission with overdose with oxycodone and chronic cocaine abuse. She also received 1 dose of Narcan in the ER. She states that she had URI like symptoms along with the family members even prior to this incident. CT scan done today shows IMPRESSION: 1. Diffuse lung disease with a posterior predominance, consistent with pneumonia versus pulmonary edema. 2. Small pleural effusions. 3. Moderate volume of ascites. COVID PCR is negative BNP is elevated 8570 This appears to be combination of pulmonary edema and pneumonia which could be aspiration. Patient may have had community-acquired pneumonia prior to this incident. ARDS or a postviral pneumonia. Patient may have cardiomyopathy from chronic cocaine abuse leading to elevated BNP pleural effusions and pulmonary edema which got exacerbated by IV fluids that she received post admission. She is hypoxic but does not appear to be in respiratory distress. Transfer patient to ICU. Discussed trial of BiPAP with patient's and she is willing to try with positive pressure may help with atelectasis and pulmonary edema Lasix IV given already on the floor. I will repeat another dose later in the evening after checking electrolytes Antibiotics changed to vancomycin Zosyn and doxycycline Blood cultures have been Sent Viral panel will be sent. Check Legionella and pneumococcal urine antigen. Check IgM mycoplasma Repeat ABG (2) Accidental drug overdose: Code(s): T50.901A - Poisoning by unspecified drugs, medicaments and biological substances, accidental (unintentional), initial encounter Status: Acute Assessment and Plan: Patient overdosed with oxycodone and also uses regularly cannabinoids and cocaine Mental status now is at baseline and she is AO x3 Monitor (3) Polysubstance abuse: Code(s): F19.10 - Other psychoactive substance abuse, uncomplicated Status: Acute Assessment and Plan: Patient was planning to go to drug rehab (4) Pneumonia: Code(s): J18.9 - Pneumonia, unspecified organism Status: Acute Assessment and Plan: See above (5) Pleural effusion: Code(s): J90 - Pleural effusion, not elsewhere classified Status: Acute Assessment and Plan: See above (6) Elevated troponin: Code(s): R79.89 - Other specified abnormal findings of blood chemistry Status: Acute Assessment and Plan: Patient has elevated troponin. Her EKG shows nonspecific ST-T changes and she is chest pain-free Elevated troponin could be likely secondary to cocaine induced vasospasm, takotsubo cardiomyopathy or stress from respiratory failure Continue serial troponin Will check echocardiogram (7) Congestive heart failure: Code(s): I50.9 - Heart failure, unspecified Status: Acute Assessment and Plan: Patient has elevated BNP and pleural effusions. She also has ascites Although patient has received IV fluids since admission and 1 dose of Narcan in the ER but it possible that the patient may have cardiomyopathy secondary to chronic cocaine abuse. Lasix IV given and I will repeat Lasix dose again later in the evening after checking her electrolytes Echocardiogram has been ordered and pending (8) Sepsis: Code(s): A41.9 - Sepsis, unspecified organism Status: Acute Assessment and Plan: Sepsis secondary to pneumonia, UA negative Her hemodynamics are stable at this time Check lactic acid level Blood cultures have been sent and are pending (9) Pleuritic chest pain: Code(s): R07.81 - Pleurodynia Status: Acute Assessment and Plan: Secondary to constant coughing cocaine and ammonia Pain medications ordered Plan DVT prophylaxis -Lovenox
--- NOTE | 2023-05-23 15:37 | PC.NURSE ---
Patient transferred to ICU [address] Gimenez at bedside. Patient placed on bipap as ordered.
[2023-05-23 15:47] LABS: Alveolar/Arterial O2 Gradient 323.2 mmHg; Device NON-INVASIVE VENT; Fractional Inspired Oxygen 60 %; HCO3 ABG 22.7 mEq/l (22.0-26.0); Modified Allen's Test Pass; Oxygen Content ABG 16.4 %vol (16.0-22.0); Oxygen Saturation ABG 95.3 % (95.0-100.0); Oxyhemoglobin 93.2 % THb (90.0-100.0); PCO2 ABG 31.3 mmHg (35.0-45.0); PO2 ABG 70.2 mmHg (80.0-100.0); PO2 FiO2 Ratio Arterial Blood 1.17 %; Site Drawn RIGHT RADIAL; Total Hemoglobin 12.5 g/dL (12.0-18.0); pH ABG 7.479 (7.350-7.450)
[2023-05-23 15:48] LABS: Non-Invasive Expiratory Pressure 6 CMH2O; Non-Invasive Inspiratory Pressure 12 CMH2O; Non-Invasive Vent Rate 12 /MIN
[2023-05-23] MEDS: PERFLUTREN LIPID MICROSPHERES 1.5 ML VIAL DILUTED TO 10 ML TOTAL VOLUME IV PUSH (15:50)
[2023-05-23 15:52] LABS: Anion Gap 7 mmol/L (4-12); Blood Urea Nitrogen 13 mg/dL (7-17); Calcium 7.8 mg/dL (8.4-10.2); Carbon Dioxide 23 mmol/L (22-30); Chloride 104 mmol/L (98-107); Estimated CRCL calculation 108 ml/min; Estimated Glomerular Filt Rate > 60; Glucose 135 mg/dL (65-110); Magnesium 1.6 mg/dL (1.6-2.3); Potassium 3.5 mmol/L (3.4-5.0); Sodium 134 mmol/L (137-145)
--- NOTE | 2023-05-23 16:03 | PC.NURSE ---
RT and broker in charge called to bedside due to patient Oxygen Saturation rapidly dropping despite Being previously stable on HFNC 8-10 L. Pt drowsy but responsive, no dyspnea or increase WOB noted. HR Sinus Tach 120s-130s otherwise VSS. Stat chest XRay ordered, patient on HFNC without improvement, places on nonrebreather with minimal improvement, Air Vo initiated. Dr. Gimenez to bedside, pt transferred to ICU for BiPAP and higher level of care/closer observation. Father at bedside and updated on situation, interventions, and verbalizes understanding. Pt verbalizes understanding.
[2023-05-23 16:04] LABS: Amphetamine Screen Urine Negative (Negative); Barbiturate Screen Urine Negative (Negative); Benzodiazepines Screen Urine Negative (Negative); Cannabinoid Screen Urine Positive (Negative); Cocaine Screen Urine Positive (Negative); Methadone Screen Urine Negative (Negative); Opiate Screen Urine Negative (Negative); Phencyclidine Screen Urine Negative (Negative)
[2023-05-23] MEDS: VANCOMYCIN 1,500 MG/NS 500 ML 1,500 MG/500 ML BAG 250 MG IVPB (16:04)
[2023-05-23] MEDS: ASPIRIN 81 MG CHEWABLE TABLET 324 MG PO (16:05)
[2023-05-23] MEDS: DOXYCYCLINE 100 MG/NS 100 ML 100 MG/100 ML BAG IVPB (16:16)
--- NOTE | 2023-05-23 16:17 | IVDEFINITY ---
Prior to administration of IV Definity the patient was educated on the risks and benefits of the imaging enhancing agent including potential adverse side effects. The patient verbalized understanding. Allergies were verified. No exclusion criteria were identified and at least one of the following inclusion criteria were met: 1) physician request, 2) patient technically difficult to image (per the [place] [employer] guidelines of two or more segments not discernable within the apical view), or 3) questionable left ventricular function. ?
[2023-05-23 16:39] LABS: Influenza A QL RT-PCR Negative (Negative); Influenza B QL RT-PCR Negative (Negative); RSV RNA, RT-PCR Negative (Negative); SARS-CoV-2 RNA PCR Negative (Negative)
[2023-05-23] MEDS: MAGNESIUM SULF 2 GM/WATER 50ML 2 GM/50 ML BAG IVPB (17:02)
[2023-05-23] MEDS: POTASSIUM CHLORIDE INJ 40 MEQ in SODIUM CHLORIDE 0.9% IV 500 ML 130 MEQ IVPB (17:02)
[2023-05-23 17:36] LABS: MRSA (PCR) NOT DETECTED (NOT DETECTE)
[2023-05-23 18:10] LABS: Troponin I 0.943 ng/mL (0.000-0.034)
[2023-05-23] MEDS: PIPERACILLN/TAZ 3.375GM/NS50ML 3.375 GM/50 ML BAG IVPB ×2 (18:10→23:18)
[2023-05-23] MEDS: MIRTAZAPINE 15 MG TABLET PO (20:33)
[2023-05-23 23:01] LABS: Anion Gap 7 mmol/L (4-12); Blood Urea Nitrogen 11 mg/dL (7-17); Calcium 7.5 mg/dL (8.4-10.2); Carbon Dioxide 24 mmol/L (22-30); Chloride 104 mmol/L (98-107); Estimated CRCL calculation 108 ml/min; Estimated Glomerular Filt Rate > 60; Glucose 132 mg/dL (65-110); Magnesium 2.1 mg/dL (1.6-2.3); Potassium 3.6 mmol/L (3.4-5.0); Sodium 135 mmol/L (137-145)
[2023-05-24] VITALS (36 sets, daily range): BP systolic 111–136; BP diastolic 75–108; PULSE 89–126; RESP 14–27; TEMP 36.9–37.3; O2SAT 88–100
[2023-05-24] MEDS: POTASSIUM CHLORIDE INJ 40 MEQ in SODIUM CHLORIDE 0.9% IV 500 ML 130 MEQ IVPB (00:07)
[2023-05-24] MEDS: FAMOTIDINE 20 MG/2 ML VIAL IV PUSH ×3 (00:07→20:44)
[2023-05-24] MEDS: LEVALBUTEROL NEB 1.25 MG/3 ML INHALATION ×4 (02:13→20:30)
[2023-05-24] MEDS: DOXYCYCLINE 100 MG/NS 100 ML 100 MG/100 ML BAG IVPB ×2 (04:53→15:57)
[2023-05-24] MEDS: VANCOMYCIN 1,000 MG/NS 250 ML 1,000 MG/250 ML BAG 250 MG IVPB ×2 (04:53→17:38)
[2023-05-24] MEDS: PIPERACILLN/TAZ 3.375GM/NS50ML 3.375 GM/50 ML BAG IVPB ×3 (05:09→17:38)
[2023-05-24 06:34] LABS: Hematocrit 33.2 % (37.0-47.0); Mean Corpuscular HGB Conc 33.1 g/dl (32-36); Mean Corpuscular Hemoglobin 29.3 pg (26-34); Mean Corpuscular Volume 88.5 fl (80-100); Mean Platelet Volume 11.9 fl (7.4-10.4); Platelet Count Result 198 k/mm3 (150-375); Red Blood Count 3.75 M/mm3 (4.2-5.4); Red Cell Distribution Width 12.8 % (11.5-14.5)
[2023-05-24 06:44] LABS: Alanine Aminotransferase 32 U/L (6-35); Albumin Level 3.4 g/dL (3.5-5.1); Alkaline Phosphatase 65 U/L (38-126); Anion Gap 6 mmol/L (4-12); Aspartate Amino Transferase 39 U/L (14-36); Bilirubin,Total 0.6 mg/dL (0.2-1.3); Blood Urea Nitrogen 13 mg/dL (7-17); Calcium 7.7 mg/dL (8.4-10.2); Carbon Dioxide 22 mmol/L (22-30); Chloride 107 mmol/L (98-107); Estimated CRCL calculation 94 ml/min; Estimated Glomerular Filt Rate > 60; Glucose 148 mg/dL (65-110); Magnesium 2.1 mg/dL (1.6-2.3); Potassium 3.9 mmol/L (3.4-5.0); Sodium 135 mmol/L (137-145)
--- NOTE | 2023-05-24 08:34 | WPDINTPN ---
Progress Note: A&P Assessment and Plan (1) Acute respiratory failure: Code(s): J96.00 - Acute respiratory failure, unspecified whether with hypoxia or hypercapnia Status: Acute Assessment and Plan: Gradually worsening hypoxia after admission with overdose with oxycodone and chronic cocaine abuse. She also received 1 dose of Narcan in the ER. She states that she had URI like symptoms along with the family members even prior to this incident. She also admits to vape and smoke marijuana CT scan done today shows IMPRESSION: 1. Diffuse lung disease with a posterior predominance, consistent with pneumonia versus pulmonary edema. 2. Small pleural effusions. 3. Moderate volume of ascites. COVID PCR is negative BNP is elevated 8570 CRP and WBC elevated This appears to be combination of pulmonary edema and pneumonia which could be aspiration. Patient may have had community-acquired pneumonia prior to this incident as it cannot be completely ruled out. ARDS or a postviral pneumonia is in the possible. Patient may have cardiomyopathy from chronic cocaine abuse leading to elevated BNP, pleural effusions and pulmonary edema which got exacerbated by IV fluids that she received post admission. She is hypoxic but does not appear to be in respiratory distress. Transfer patient to ICU. Discussed trial of BiPAP with patient's and she is willing to try with positive pressure may help with atelectasis and pulmonary edema Lasix IV given already on the floor. I will repeat another dose later in the evening after checking electrolytes Antibiotics changed to vancomycin Zosyn and doxycycline Blood cultures have been Sent Viral panel will be sent. Check Legionella and pneumococcal urine antigen. Check IgM mycoplasma Repeat ABG 4/6 viral PCR for influenza COVID and RSV were negative Patient wore BiPAP intermittently overnight and clinically feels better and does not appear in respiratory distress. She is on 50 L 50% high-flow nasal cannula. I will hold further Lasix as patient does not appear to have any crackles on exam or edema on lower extremities. Echo is pending Other microbiology studies are pending. WBCs down to 17 Continue current antibiotics in the form of vancomycin Zosyn and doxycycline Start clear liquid diet Incentive spirometry, up in chair (2) Accidental drug overdose: Code(s): T50.901A - Poisoning by unspecified drugs, medicaments and biological substances, accidental (unintentional), initial encounter Status: Acute Assessment and Plan: Patient overdosed with oxycodone and also uses regularly cannabinoids and cocaine Mental status now is at baseline and she is AO x3 Monitor (3) Polysubstance abuse: Code(s): F19.10 - Other psychoactive substance abuse, uncomplicated Status: Acute Assessment and Plan: Patient admits to snorting cocaine, using Oxy, smoking marijuana and regular vaping. Patient was planning to go to drug rehab (4) Pneumonia: Code(s): J18.9 - Pneumonia, unspecified organism Status: Acute Assessment and Plan: See above (5) Pleural effusion: Code(s): J90 - Pleural effusion, not elsewhere classified Status: Acute Assessment and Plan: See above (6) Elevated troponin: Code(s): R79.89 - Other specified abnormal findings of blood chemistry Status: Acute Assessment and Plan: Patient has elevated troponin. Her EKG shows nonspecific ST-T changes and she is chest pain-free Elevated troponin could be likely secondary to cocaine induced vasospasm, takotsubo cardiomyopathy or stress from respiratory failure Serial troponins shows downward trend echocardiogram has been done and report pending (7) Congestive heart failure: Code(s): I50.9 - Heart failure, unspecified Status: Acute Assessment and Plan: Patient has elevated BNP and pleural effusions. She also has ascites Although patient has received IV f
[2023-05-24 09:59] LABS: Lipase 2339 U/L (23-300)
--- NOTE | 2023-05-24 10:03 | PM.CNCAR ---
Assessment and Plan Assessment and plan (1) Congestive heart failure: Code(s): I50.9 - Heart failure, unspecified Status: Acute Assessment and Plan: Concern for congestive heart failure due to pulmonary edema, pleural effusions, elevated NT pro BNP. Echocardiogram ordered and pending. Agree with intermittent IV Lasix as tolerated. Please monitor I/Os. (2) Acute respiratory failure: Code(s): J96.00 - Acute respiratory failure, unspecified whether with hypoxia or hypercapnia Status: Acute Assessment and Plan: Chest imaging with pulmonary edema, pleural effusions. Could be cardiogenic pulmonary edema vs noncardiogenic pulmonary edema. Agree with intermittent IV Lasix as tolerated. Also being treated for pneumonia. (3) Accidental drug overdose: Code(s): T50.901A - Poisoning by unspecified drugs, medicaments and biological substances, accidental (unintentional), initial encounter Status: Acute Assessment and Plan: UDS positive for cocaine and cannabinoids (4) Elevated troponin: Code(s): R79.89 - Other specified abnormal findings of blood chemistry Status: Acute Assessment and Plan: In the setting of drug overdose, cocaine use, acute hypoxic respiratory failure. Likely demand ischemia, doubt an acute plaque rupture. No chest pain. EKGs without ischemic changes. Echocardiogram ordered and pending. Plan Recommendations and plan discussed with [facility]. History of Present Illness History of Present Illness Consult date/time: 05/24/23 10:03 Requesting physician: Laci Gimenez MD Consult reason: Other (Elevated troponin, congestive heart failure) Reason For Visit: UNINTENTIONAL DRUG OVERDOSE Narrative: We are consulted for elevated troponin, congestive heart failure. This is a 22 year old female with substance abuse who presented with altered mental status secondary to drug overdose. Patient uses cocaine couple times a week by snorting. Also took Oxycodone 05/20. Patient was initially admitted to the step down unit, however, due to hypoxic respiratory failure and worsening respiratory status, she was transferred to ICU 05/22. At this time, patient states she is feeling better. No shortness of breath at rest. Remains on high flow nasal cannula. Patient reports a history of PVCs, otherwise, no other cardiac issues. No chest pain. EKG with sinus tachycardia with nonspecific STTW abnormality. Troponins of 1.320, 1.040, 0.943. NT pro BNP of 8570. Review of Systems Review of Systems: All systems reviewed & are unremarkable except as noted in HPI and below (HPI) [facility] Past Medical History Medical History Accidental overdose ADHD Bipolar 1 disorder Dental caries No pertinent past medical history Substance abuse Surgical History Surgical History H/O wisdom tooth extraction History of umbilical hernia repair No pertinent past surgical history Family History Family History Other Unknown family medical history Social History Social History Social History: She lives with her father, mother, and sister at home. She recently quit her job at [employer] and is currently unemployed and is not currently in school. Years smoked: 5 Smoking status: Current every day smoker Tobacco type: e-cigarettes/vaping Alcohol intake: current Drinks per week: 2 Alcohol use details: Beer Substance use: current Substance use type: marijuana, crack/cocaine and prescription drug Do You Feel Safe in your Home?: Yes Lack of Transportation: No Lack of Food: Never True Current Housing: I Have Housing Concerned About Future Housing: No Difficulty Paying Gas/Electric Bills: No Difficulty Paying for Meds: No Currently Unemployed: No Education: High School D
[2023-05-24 12:05] LABS: Glucose Point of Care 131 mg/dl (65-105)
[2023-05-24] MEDS: FUROSEMIDE INJ 40 MG/4 ML VIAL IV PUSH (14:03)
[2023-05-24] MEDS: carvediloL 3.125 MG TABLET PO ×2 (14:08→20:44)
[2023-05-24 18:41] LABS: Glucose Point of Care 144 mg/dl (65-105)
[2023-05-24] MEDS: MIRTAZAPINE 15 MG TABLET PO (20:43)
[2023-05-25] VITALS (34 sets, daily range): BP systolic 99–162; BP diastolic 63–111; PULSE 62–116; RESP 15–26; TEMP 36.2–37.7; O2SAT 95–100
[2023-05-25] MEDS: PIPERACILLN/TAZ 3.375GM/NS50ML 3.375 GM/50 ML BAG IVPB ×5 (00:30→23:20)
[2023-05-25 00:37] LABS: Glucose Point of Care 129 mg/dl (65-105)
[2023-05-25] MEDS: LEVALBUTEROL NEB 1.25 MG/3 ML INHALATION ×4 (02:58→20:43)
[2023-05-25] MEDS: DOXYCYCLINE 100 MG/NS 100 ML 100 MG/100 ML BAG IVPB ×2 (03:23→16:50)
[2023-05-25 04:07] LABS: Hemoglobin 11.6 g/dL (12.0-15.0); Mean Corpuscular HGB Conc 32.2 g/dl (32-36); Mean Corpuscular Hemoglobin 28.7 pg (26-34); Mean Corpuscular Volume 89.1 fl (80-100); Mean Platelet Volume 11.8 fl (7.4-10.4); Platelet Count Result 225 k/mm3 (150-375); Red Blood Count 4.04 M/mm3 (4.2-5.4); Red Cell Distribution Width 12.6 % (11.5-14.5); White Blood Count 18.3 K/mm3 (4.5-10.0)
[2023-05-25 04:19] LABS: Alanine Aminotransferase 35 U/L (6-35); Albumin Level 3.5 g/dL (3.5-5.1); Alkaline Phosphatase 69 U/L (38-126); Anion Gap 5 mmol/L (4-12); Aspartate Amino Transferase 34 U/L (14-36); Bilirubin,Total 0.9 mg/dL (0.2-1.3); Blood Urea Nitrogen 14 mg/dL (7-17); Carbon Dioxide 25 mmol/L (22-30); Chloride 103 mmol/L (98-107); Estimated CRCL calculation 94 ml/min; Estimated Glomerular Filt Rate > 60; Glucose 143 mg/dL (65-110); Magnesium 1.9 mg/dL (1.6-2.3); Potassium 3.1 mmol/L (3.4-5.0); Sodium 133 mmol/L (137-145)
[2023-05-25 04:25] LABS: NT Pro B Type Natriuretic Pept 24500 pg/mL (19.9-100); Vancomycin Trough 8.2 ug/mL (10.0-20.0)
[2023-05-25] MEDS: VANCOMYCIN 1,250 MG/NS 250 ML 1,250 MG/250 ML BAG 166.67 MG IVPB (05:55)
[2023-05-25 08:21] LABS: Triglycerides 101 mg/dL (<150)
[2023-05-25] MEDS: carvediloL 3.125 MG TABLET PO ×2 (08:29→21:33)
[2023-05-25] MEDS: LOSARTAN POTASSIUM 12.5 MG TABLET PO (08:29)
[2023-05-25] MEDS: FAMOTIDINE 20 MG/2 ML VIAL IV PUSH ×2 (08:29→21:33)
--- NOTE | 2023-05-25 08:34 | WPDINTPN ---
Progress Note: A&P Assessment and Plan (1) Acute respiratory failure: Code(s): J96.00 - Acute respiratory failure, unspecified whether with hypoxia or hypercapnia Status: Acute Assessment and Plan: Gradually worsening hypoxia after admission with overdose with oxycodone and chronic cocaine abuse. She also received 1 dose of Narcan in the ER. She states that she had URI like symptoms along with the family members even prior to this incident. She also admits to vape and smoke marijuana CT scan done today shows IMPRESSION: 1. Diffuse lung disease with a posterior predominance, consistent with pneumonia versus pulmonary edema. 2. Small pleural effusions. 3. Moderate volume of ascites. COVID PCR is negative BNP is elevated 8570 CRP and WBC elevated This appears to be combination of pulmonary edema and pneumonia which could be aspiration. Patient may have had community-acquired pneumonia prior to this incident as it cannot be completely ruled out. ARDS or a postviral pneumonia is in the possible. Patient has cardiomyopathy likely from from chronic cocaine abuse leading to elevated BNP, pleural effusions and pulmonary edema which got exacerbated by IV fluids that she received post admission. She is hypoxic but does not appear to be in respiratory distress. Transfer patient to ICU. Discussed trial of BiPAP with patient's and she is willing to try with positive pressure may help with atelectasis and pulmonary edema Lasix IV given already on the floor. I will repeat another dose later in the evening after checking electrolytes Antibiotics changed to vancomycin Zosyn and doxycycline Blood cultures have been Sent Viral panel will be sent. Check Legionella and pneumococcal urine antigen. Check IgM mycoplasma Repeat ABG / viral PCR for influenza COVID and RSV were negative Patient wore BiPAP intermittently overnight and clinically feels better and does not appear in respiratory distress. She is on 50 L 50% high-flow nasal cannula. I will hold further Lasix as patient does not appear to have any crackles on exam or edema on lower extremities. Echo is pending 05/24 oxygen requirement improved to 40% FiO2 and 40 L flow. Continue Airvo. Up in chair. Continue incentive spirometry Continue diuresis Other microbiology studies are pending. WBCs elevated at 18 but afebrile Nasal MRSA screen is negative Continue current antibiotics in the form of vancomycin Zosyn and doxycycline Continue clear liquid diet (2) Accidental drug overdose: Code(s): T50.901A - Poisoning by unspecified drugs, medicaments and biological substances, accidental (unintentional), initial encounter Status: Acute Assessment and Plan: Patient overdosed with oxycodone and also uses regularly cannabinoids and cocaine Mental status now is at baseline and she is AO x3 Monitor (3) Polysubstance abuse: Code(s): F19.10 - Other psychoactive substance abuse, uncomplicated Status: Acute Assessment and Plan: Patient admits to snorting cocaine, using Oxy, smoking marijuana and regular vaping. Patient was planning to go to drug rehab (4) Pneumonia: Code(s): J18.9 - Pneumonia, unspecified organism Status: Acute Assessment and Plan: See above (5) Pleural effusion: Code(s): J90 - Pleural effusion, not elsewhere classified Status: Acute Assessment and Plan: See above (6) Elevated troponin: Code(s): R79.89 - Other specified abnormal findings of blood chemistry Status: Acute Assessment and Plan: Patient has elevated troponin. Her EKG shows nonspecific ST-T changes and she is chest pain-free Elevated troponin could be likely secondary to cocaine induced vasospasm, takotsubo cardiomyopathy or stress from respiratory failure Serial troponins shows downward trend echocardiogram has been done and report pending (7) Congestive heart failure: Code(s): I50.9 - Heart fail
--- NOTE | 2023-05-25 08:55 | PC.NURSE ---
Patient c/o burning at both peripheral IV sites. Dr. Gimenez notified, PICC line insertion ordered. Patient requested her father to be updated on status. Father did not answer telephone when attempted to contact.
[2023-05-25] MEDS: LIDOCAINE HCL 1% PF INJ 5 ML VIAL INFILTRATE (09:15)
[2023-05-25] MEDS: KCL 40 MEQ/WATER 100 ML 100 ML 25 ML IVPB (12:00)
[2023-05-25] MEDS: POTASSIUM CHLORIDE 20 MEQ ER TABLET 40 MEQ PO ×2 (12:00→16:58)
--- NOTE | 2023-05-25 12:00 | PC.NURSE ---
Patient received 40meQ Potassium Chloride tablet. Nausea with scant yellow emesis noted. No sign of pills noted in emesis.
[2023-05-25 12:54] LABS: Glucose Point of Care 152 mg/dl (65-105)
[2023-05-25] MEDS: CENTRAL LINE FLUSH 10 ML IV PUSH ×2 (13:28→21:33)
[2023-05-25] MEDS: VANCOMYCIN 1,250 MG/NS 250 ML 1,250 MG/250 ML BAG 166 MG IVPB (13:29)
[2023-05-25] MEDS: ONDANSETRON INJ 4 MG/2 ML VIAL IV PUSH (15:18)
[2023-05-25] MEDS: FUROSEMIDE INJ 40 MG/4 ML VIAL IV PUSH (16:50)
[2023-05-25 17:45] LABS: Anion Gap 2 mmol/L (4-12); Blood Urea Nitrogen 15 mg/dL (7-17); Calcium 8.2 mg/dL (8.4-10.2); Carbon Dioxide 27 mmol/L (22-30); Chloride 105 mmol/L (98-107); Estimated CRCL calculation 67 ml/min; Estimated Glomerular Filt Rate > 60; Glucose 134 mg/dL (65-110); Potassium 3.7 mmol/L (3.4-5.0); Sodium 134 mmol/L (137-145)
[2023-05-25] MEDS: VANCOMYCIN 1,250 MG/NS 250 ML 1,250 MG/250 ML BAG 167 MG IVPB (21:28)
[2023-05-25] MEDS: MIRTAZAPINE 15 MG TABLET PO (21:33)
[2023-05-25 23:32] LABS: Glucose Point of Care 115 mg/dl (65-105)
[2023-05-26] VITALS (24 sets, daily range): BP systolic 97–118; BP diastolic 64–83; PULSE 76–100; RESP 12–20; TEMP 36.6–37.4; O2SAT 91–100
[2023-05-26] MEDS: LEVALBUTEROL NEB 1.25 MG/3 ML INHALATION ×4 (02:44→19:51)
[2023-05-26] MEDS: DOXYCYCLINE 100 MG/NS 100 ML 100 MG/100 ML BAG IVPB ×2 (04:51→16:20)
[2023-05-26] MEDS: PIPERACILLN/TAZ 3.375GM/NS50ML 3.375 GM/50 ML BAG IVPB ×4 (05:00→23:49)
[2023-05-26] MEDS: CENTRAL LINE FLUSH 10 ML IV PUSH ×3 (05:01→20:50)
[2023-05-26 05:19] LABS: Hematocrit 34.6 % (37.0-47.0); Hemoglobin 11.5 g/dL (12.0-15.0); Mean Corpuscular HGB Conc 33.2 g/dl (32-36); Mean Corpuscular Hemoglobin 29.1 pg (26-34); Mean Corpuscular Volume 87.6 fl (80-100); Mean Platelet Volume 11.8 fl (7.4-10.4); Platelet Count Result 206 k/mm3 (150-375); Red Blood Count 3.95 M/mm3 (4.2-5.4); Red Cell Distribution Width 12.8 % (11.5-14.5); White Blood Count 14.1 K/mm3 (4.5-10.0)
[2023-05-26 05:29] LABS: Alanine Aminotransferase 28 U/L (6-35); Albumin Level 3.3 g/dL (3.5-5.1); Alkaline Phosphatase 62 U/L (38-126); Anion Gap 3 mmol/L (4-12); Aspartate Amino Transferase 30 U/L (14-36); Bilirubin,Total 0.7 mg/dL (0.2-1.3); Blood Urea Nitrogen 15 mg/dL (7-17); Calcium 8.2 mg/dL (8.4-10.2); Carbon Dioxide 29 mmol/L (22-30); Chloride 101 mmol/L (98-107); Estimated CRCL calculation 51 ml/min; Estimated Glomerular Filt Rate 51; Glucose 119 mg/dL (65-110); Magnesium 1.8 mg/dL (1.6-2.3); Potassium 3.1 mmol/L (3.4-5.0); Sodium 133 mmol/L (137-145)
[2023-05-26 05:35] LABS: Vancomycin Trough 28.5 ug/mL (10.0-20.0)
[2023-05-26] MEDS: LOSARTAN POTASSIUM 12.5 MG TABLET PO (08:07)
[2023-05-26] MEDS: carvediloL 3.125 MG TABLET PO (08:07)
[2023-05-26] MEDS: KCL 40 MEQ/WATER 100 ML 100 ML 25 ML IVPB (08:08)
[2023-05-26] MEDS: ENOXAPARIN 40 MG/0.4 ML SYRINGE SUB-Q (08:09)
[2023-05-26] MEDS: POTASSIUM CHLORIDE 20 MEQ ER TABLET 40 MEQ PO (08:18)
--- NOTE | 2023-05-26 09:02 | WPDINTPN ---
Progress Note: A&P Assessment and Plan (1) Acute respiratory failure: Code(s): J96.00 - Acute respiratory failure, unspecified whether with hypoxia or hypercapnia Status: Acute Assessment and Plan: Gradually worsening hypoxia after admission with overdose with oxycodone and chronic cocaine abuse. She also received 1 dose of Narcan in the ER. She states that she had URI like symptoms along with the family members even prior to this incident. She also admits to vape and smoke marijuana CT scan done today shows IMPRESSION: 1. Diffuse lung disease with a posterior predominance, consistent with pneumonia versus pulmonary edema. 2. Small pleural effusions. 3. Moderate volume of ascites. COVID PCR is negative BNP is elevated 8570 CRP and WBC elevated This appears to be combination of pulmonary edema and pneumonia which could be aspiration. Patient may have had community-acquired pneumonia prior to this incident as it cannot be completely ruled out. ARDS or a postviral pneumonia is in the possible. Patient has cardiomyopathy likely from from chronic cocaine abuse leading to elevated BNP, pleural effusions and pulmonary edema which got exacerbated by IV fluids that she received post admission. She is hypoxic but does not appear to be in respiratory distress. Transfer patient to ICU. Discussed trial of BiPAP with patient's and she is willing to try with positive pressure may help with atelectasis and pulmonary edema Lasix IV given already on the floor. I will repeat another dose later in the evening after checking electrolytes Antibiotics changed to vancomycin Zosyn and doxycycline Blood cultures have been Sent Viral panel will be sent. Check Legionella and pneumococcal urine antigen. Check IgM mycoplasma Repeat ABG / viral PCR for influenza COVID and RSV were negative Patient wore BiPAP intermittently overnight and clinically feels better and does not appear in respiratory distress. She is on 50 L 50% high-flow nasal cannula. I will hold further Lasix as patient does not appear to have any crackles on exam or edema on lower extremities. Echo is pending 05/24 oxygen requirement improved to 40% FiO2 and 40 L flow. Continue Airvo. Up in chair. Continue incentive spirometry Continue diuresis 8 significant improvement hypoxia and patient is now off of oxygen and on room air. Afebrile WBC improved Other microbiology studies are pending. Nasal MRSA screen is negative Continue Zosyn and doxycycline. DC vancomycin Advance diet Hold diuretics due to slight bump in creatinine and improvement of hypoxia (2) Accidental drug overdose: Code(s): T50.901A - Poisoning by unspecified drugs, medicaments and biological substances, accidental (unintentional), initial encounter Status: Acute Assessment and Plan: Patient overdosed with oxycodone and also uses regularly cannabinoids and cocaine Mental status now is at baseline and she is AO x3 Monitor (3) Polysubstance abuse: Code(s): F19.10 - Other psychoactive substance abuse, uncomplicated Status: Acute Assessment and Plan: Patient admits to snorting cocaine, using Oxy, smoking marijuana and regular vaping. Patient was planning to go to drug rehab (4) Pneumonia: Code(s): J18.9 - Pneumonia, unspecified organism Status: Acute Assessment and Plan: See above (5) Pleural effusion: Code(s): J90 - Pleural effusion, not elsewhere classified Status: Acute Assessment and Plan: See above (6) Elevated troponin: Code(s): R79.89 - Other specified abnormal findings of blood chemistry Status: Acute Assessment and Plan: Patient has elevated troponin. Her EKG shows nonspecific ST-T changes and she is chest pain-free Elevated troponin could be likely secondary to cocaine induced vasospasm, takotsubo cardiomyopathy or stress from respiratory failure Serial troponins shows downward trend echocardi
--- NOTE | 2023-05-26 09:31 | PM.PNCARD ---
Progress Note: A&P Assessment and Plan (1) Congestive heart failure: Code(s): I50.9 - Heart failure, unspecified Status: Acute Assessment and Plan: Concern for congestive heart failure due to pulmonary edema, pleural effusions, elevated NT pro BNP. Echocardiogram showed severe LV systolic dysfunction with EF <15%. RV dysfunction is present as well. -She has been started on medical therapy with coreg and losartan. BP tolerating this so far. -Will increase coreg to 6.25mg b.i.d. -Discussed LifeVest as she is at increased risk for SCD. She would like to proceed with LifeVest. Order placed. -OK to downgrade to med/tele -anticipate discharge in the next 24-48 hours (2) Acute respiratory failure: Code(s): J96.00 - Acute respiratory failure, unspecified whether with hypoxia or hypercapnia Status: Acute Assessment and Plan: Chest imaging with pulmonary edema, pleural effusions. Could be cardiogenic pulmonary edema vs noncardiogenic pulmonary edema. Also being treated for pneumonia. Lasix being held at this point as her pulmonary exam is normal and she did have a slight bump in SCr this morning. (3) Accidental drug overdose: Code(s): T50.901A - Poisoning by unspecified drugs, medicaments and biological substances, accidental (unintentional), initial encounter Status: Acute Assessment and Plan: UDS positive for cocaine and cannabinoids. Plan to discharge to rehab. (4) Elevated troponin: Code(s): R79.89 - Other specified abnormal findings of blood chemistry Status: Acute Assessment and Plan: In the setting of drug overdose, cocaine use, acute hypoxic respiratory failure. Likely demand ischemia, doubt an acute plaque rupture. No chest pain. EKGs without ischemic changes. Echocardiogram findings as above Subjective Date/time seen: 05/26/23 09:31 Interval history: Cardiology follow up for CHF, cardiomyopathy Date of service 05/26/2023: She feels much better today. Denies any shortness of breath, chest pain, palpitations. She has a cough. Review of Systems Review of Systems: All systems reviewed & are unremarkable except as noted in HPI and below (HPI) Exam Const: General: no acute distress HENMT: Mouth: Yes moist mucous membranes Eyes: General: appearance normal, both eyes and all related structures Sclera: sclerae normal Neck: Neck: supple Resp: Auscultation: diminished lung sounds Other: On high flow nasal cannula Cardio: Rate: tachycardic Rhythm: regular rhythm Heart sounds: no murmurs Skin: General skin exam: normal color Neuro: Speech: normal speech Psych: Mental Status: mental status grossly normal Affect: normal affect Objective Data Vital Signs Vital Signs: Vital Signs - 24 hr 05/25/23 10:00 05/25/23 10:00 05/25/23 10:00 Temperature Pulse Rate 90 94 93 Pulse Rate [Monitor] Respiratory Rate 17 18 Blood Pressure 103/73 Pulse Oximetry 99 98 Oxygen Delivery High Flow Therapy with Na Oxygen Flow Rate 40 Fraction of Inspired Oxygen 43 05/25/23 12:00 05/25/23 12:00 05/25/23 12:00 Temperature Pulse Rate 116 H Pulse Rate [Monitor] 116 H Respiratory Rate Blood Pressure Pulse Oximetry 100 Oxygen Delivery High Flow Therapy with Na Oxygen Flow Rate 40 Fraction of Inspired Oxygen 40 05/25/23 12:00 05/25/23 11:00 05/25/23 13:20 Temperature 36.9 C 36.8 C Pulse Rate 93 62 89 Pulse Rate [Monitor] Respiratory Rate 20 26 H 18 Blood Pressure 102/88 162/63 H Pulse Oximetry 100 98 99 Oxygen Delivery Nasal Cannula Oxygen Flow Rate 40 Fraction of Inspired Oxygen 38 05/25/23 13:20 05/25/23 13:30 05/25/23 14:00 Temperature Pulse Rate 89 93 106 H Pulse Rate [Monitor] Respiratory Rate 18 18 Blood Pressure Pulse Oximetry Oxygen Delivery Oxygen Flow Rate Fraction of Inspired Oxygen 05/25/23 14:00 05/25/23 16:02 05/25/23 16:00
--- NOTE | 2023-05-26 17:01 | PM.IMPN ---
Progress Note: A&P Assessment and Plan (1) Elevated serum creatinine: Code(s): R79.89 - Other specified abnormal findings of blood chemistry Status: Acute (2) Pancreatitis: Code(s): K85.90 - Acute pancreatitis without necrosis or infection, unspecified Status: Acute (3) Electrolyte abnormality: Code(s): E87.8 - Other disorders of electrolyte and fluid balance, not elsewhere classified Status: Acute (4) Pleuritic chest pain: Code(s): R07.81 - Pleurodynia Status: Acute (5) Congestive heart failure: Code(s): I50.9 - Heart failure, unspecified Status: Acute (6) Accidental overdose: Code(s): T50.901A - Poisoning by unspecified drugs, medicaments and biological substances, accidental (unintentional), initial encounter Status: Acute Plan # accidental overdose # polysubstance abuse - UDS positive for cocaine, cannabis - patient had an accidental overdose on uppers and downers. she had no intention to hurt herself - will continue monitor leukocytosis WBC 41095 - patient had been on vancomycin which we have discontinued. still on Zosyn and doxycycline which will continue for another day # nonischemic cardiomyopathy likely secondary to drug abuse - EF less than 15%. cardiology arranging life vest - monitoring on beta-blockers Coreg 6.25 mg b.i.d., losartan 12.5mg daily - hypokalemia potassium 3.1, repeating as needed. hypokalemia from diuresis - acute renal injury creatinine elevated 1.3, continue monitor, treating cardiac function with med management and life vest # chronic conditions - bipolar disorder: Holding home lorazepam, on Vraylar, mirtazapine - ADHD: On dextroamphetamine-amphetamine Diet: heart healthy DVT prophylaxis: Lovenox Code status: full code Disposition: Likely home in 1-2 days, outpatient drug rehab program Subjective Date/time seen: 05/26/23 17:01 Interval history: Patient seen and examined. She is doing well with no new complaints. Cardiology arranging for Life Vest with EF less than 15%. We will downgrade from ICU to med tele. Patient voluntarily would like to go to [facility]. will continue monitoring on Coreg and losartan. Will discharge after Life vest. Review of Systems Review of Systems: 10 point ROS complete, negative other than what is specified in HPI. Exam Narrative: - GENERAL: pleasant woman in no acute distress. Well-nourished. - EYES: EOMI. Anicteric. - HENT: Moist mucous membranes. - LUNGS: Clear to auscultation bilaterally, no wheezing, rhonchi, or rales. - CARDIOVASCULAR: Regular rate and rhythm. No murmur. No JVD. - ABDOMEN: Soft, non-tender and non-distended. No palpable masses. - EXTREMITIES: No edema. Peripheral pulses 2+. Non-tender. - NEUROLOGIC: No focal neurological deficits. CN II-XII grossly intact. - PSYCHIATRIC: Awake, Alert and oriented x 3. Appropriate mood and affect. - SKIN: No rashes or lesions. Warm. numerous tattoos throughout, no sign of infection - LYMPH: No cervical lymphadenopathy. Objective Data Vital Signs Vital Signs: Vital Signs - 24 hr 05/25/23 18:00 05/25/23 18:00 05/25/23 19:35 Temperature Pulse Rate 102 H 102 H Pulse Rate [Monitor] Respiratory Rate 21 H Blood Pressure 117/86 Pulse Oximetry 96 98 Oxygen Delivery Room Air Fraction of Inspired Oxygen 05/25/23 20:44 05/25/23 20:46 05/25/23 20:51 Temperature Pulse Rate 88 88 89 Pulse Rate [Monitor] Respiratory Rate 16 16 15 Blood Pressure Pulse Oximetry 96 Oxygen Delivery Room Air Fraction of Inspired Oxygen 05/25/23 21:33 05/25/23 20:00 05/26/23 02:45 Temperature Pulse Rate 99 88 Pulse Rate [Monitor] 99 Respiratory Rate 14 Blood Pressure Pulse Oximetry Oxygen Delivery Fraction of Inspired Oxygen 05/26/23 02:56 05/25/23 20:00 05/25/23 22:00 Temperature Pulse Rate 91 97 99 Pulse Rate [Monitor] Respiratory
[2023-05-26] MEDS: MIRTAZAPINE 15 MG TABLET PO (20:35)
[2023-05-26] MEDS: carvediloL 3.125 MG TABLET 6.25 MG PO (20:36)
[2023-05-26 21:44] LABS: Pneumococcal Antigen Urine Not Detected (Not Detected)
[2023-05-27] VITALS (12 sets, daily range): BP systolic 114–124; BP diastolic 69–80; PULSE 71–106; RESP 14–18; TEMP 36.7; O2SAT 98–100
--- NOTE | 2023-05-27 01:37 | PC.NURSE ---
Addendum entered by Katelynn Cat RN 05/27/23 01:40: Edit: Patient was transferred at 0100 Original Note: This patient, Luli Veliz, was transferred to [facility] on 05/27/23 at 0137. Personal belongings sent with patient. Report given to Nirali HAILE. Appropriate documentation sent with patient.
[2023-05-27 03:28] LABS: Legionella pneumophila Ag Ur Not Detected (Not Detected)
[2023-05-27] MEDS: PIPERACILLN/TAZ 3.375GM/NS50ML 3.375 GM/50 ML BAG IVPB ×2 (05:22→12:38)
[2023-05-27] MEDS: DOXYCYCLINE 100 MG/NS 100 ML 100 MG/100 ML BAG IVPB (05:22)
[2023-05-27] MEDS: CENTRAL LINE FLUSH 10 ML IV PUSH (05:22)
[2023-05-27 05:30] LABS: Hematocrit 32.5 % (37.0-47.0); Hemoglobin 10.8 g/dL (12.0-15.0); Mean Corpuscular HGB Conc 33.2 g/dl (32-36); Mean Corpuscular Hemoglobin 29.9 pg (26-34); Mean Platelet Volume 11.3 fl (7.4-10.4); Platelet Count Result 235 k/mm3 (150-375); Red Blood Count 3.61 M/mm3 (4.2-5.4); Red Cell Distribution Width 12.9 % (11.5-14.5); White Blood Count 12.1 K/mm3 (4.5-10.0)
[2023-05-27 05:41] LABS: Alanine Aminotransferase 25 U/L (6-35); Albumin Level 3.4 g/dL (3.5-5.1); Alkaline Phosphatase 54 U/L (38-126); Anion Gap 7 mmol/L (4-12); Aspartate Amino Transferase 24 U/L (14-36); Bilirubin,Total 0.7 mg/dL (0.2-1.3); Blood Urea Nitrogen 12 mg/dL (7-17); Carbon Dioxide 27 mmol/L (22-30); Chloride 107 mmol/L (98-107); Estimated CRCL calculation 51 ml/min; Estimated Glomerular Filt Rate 51; Glucose 96 mg/dL (65-110); Magnesium 2.1 mg/dL (1.6-2.3); Potassium 3.7 mmol/L (3.4-5.0); Sodium 141 mmol/L (137-145)
[2023-05-27] MEDS: LEVALBUTEROL NEB 1.25 MG/3 ML INHALATION ×2 (07:49→14:03)
[2023-05-27] MEDS: carvediloL 3.125 MG TABLET 6.25 MG PO (09:30)
[2023-05-27] MEDS: LOSARTAN POTASSIUM 12.5 MG TABLET PO (09:30)
[2023-05-27] MEDS: ENOXAPARIN 40 MG/0.4 ML SYRINGE SUB-Q (09:30)
--- NOTE | 2023-05-27 10:42 | PM.PNCARD ---
Progress Note: A&P Assessment and Plan (1) Congestive heart failure: Code(s): I50.9 - Heart failure, unspecified Status: Acute Assessment and Plan: Concern for congestive heart failure due to pulmonary edema, pleural effusions, elevated NT pro BNP. Echocardiogram showed severe LV systolic dysfunction with EF <15%. RV dysfunction is present as well. Suspect stress cardiomyopathy in the setting of drug overdose based on regional wall motion abnormality. Although cannot rule out coronary artery disease, less likely given her young age. -Continue Coreg and Losartan -Has received Life Vest. -Okay to discharge home from a cardiology standpoint. Will arrange for close outpatient follow up. Further optimization of GDMT to be done as outpatient. (2) Acute respiratory failure: Code(s): J96.00 - Acute respiratory failure, unspecified whether with hypoxia or hypercapnia Status: Acute Assessment and Plan: Chest imaging with pulmonary edema, pleural effusions. Could be cardiogenic pulmonary edema vs noncardiogenic pulmonary edema. Also being treated for pneumonia. Improved and now resolved. (3) Accidental drug overdose: Code(s): T50.901A - Poisoning by unspecified drugs, medicaments and biological substances, accidental (unintentional), initial encounter Status: Acute Assessment and Plan: UDS positive for cocaine and cannabinoids. Plan to discharge to rehab. (4) Elevated troponin: Code(s): R79.89 - Other specified abnormal findings of blood chemistry Status: Acute Assessment and Plan: In the setting of drug overdose, cocaine use, acute hypoxic respiratory failure. Likely demand ischemia, doubt an acute plaque rupture. No chest pain. EKGs without ischemic changes. Echocardiogram findings as above Subjective Date/time seen: 05/27/23 10:42 Interval history: Reason for visit: CHF HPI: We are consulted for elevated troponin, congestive heart failure. This is a 22 year old female with substance abuse who presented with altered mental status secondary to drug overdose. Patient uses cocaine couple times a week by snorting. Also took Oxycodone 05/20. Patient was initially admitted to the step down unit, however, due to hypoxic respiratory failure and worsening respiratory status, she was transferred to ICU 05/22. At this time, patient states she is feeling better. No shortness of breath at rest. Remains on high flow nasal cannula. Patient reports a history of PVCs, otherwise, no other cardiac issues. No chest pain. EKG with sinus tachycardia with nonspecific STTW abnormality. Troponins of 1.320, 1.040, 0.943. NT pro BNP of 8570. Date of service 05/25: She feels much better today.? Denies any shortness of breath, chest pain, palpitations.? She has a cough.? Date of service 05/26: Doing well. Received Life Vest. Review of Systems Review of Systems: All systems reviewed & are unremarkable except as noted in HPI and below (HPI) Exam Const: General: comfortable and no acute distress HENMT: Mouth: Yes moist mucous membranes Eyes: General: appearance normal, both eyes and all related structures Sclera: sclerae normal Resp: Effort & Inspection: normal respiratory effort Cardio: Rate: regular rate Rhythm: regular rhythm Skin: General skin exam: normal color Neuro: Speech: normal speech Psych: Mental Status: mental status grossly normal Affect: normal affect Objective Data Vital Signs Vital Signs: Vital Signs - 24 hr 05/26/23 10:46 05/26/23 12:00 05/26/23 12:00 Temperature 36.8 C Pulse Rate 79 Pulse Rate [Monitor] 88 Respiratory Rate 15 Blood Pressure 111/83 111/83 Pulse Oximetry 99 Oxygen Delivery Room Air 05/26/23 12:00 05/26/23 12:00 05/26/23 13:14 Temperature Pulse Rate 79 85 Pulse Rate [Monitor] Respiratory Rate 16 Blood Pressure Pulse Oximetry 100 Oxygen Delivery Room Air 05/26/23 13:28 05/26/23 14:00 05/26/23
--- NOTE | 2023-05-27 13:35 | PM.DS ---
DS: Admitting Diagnosis Discharge Date 05/27/23 Admitting Diagnosis accidental illicit drug overdose DS: Discharge Diagnosis Discharge Diagnosis (1) Elevated serum creatinine: Code(s): R79.89 - Other specified abnormal findings of blood chemistry Status: Acute (2) Pancreatitis: Code(s): K85.90 - Acute pancreatitis without necrosis or infection, unspecified Status: Acute (3) Electrolyte abnormality: Code(s): E87.8 - Other disorders of electrolyte and fluid balance, not elsewhere classified Status: Acute (4) Pleuritic chest pain: Code(s): R07.81 - Pleurodynia Status: Acute (5) Sepsis: Code(s): A41.9 - Sepsis, unspecified organism Status: Acute (6) Bipolar 1 disorder: Code(s): F31.9 - Bipolar disorder, unspecified Status: Acute (7) Substance abuse: Code(s): F19.10 - Other psychoactive substance abuse, uncomplicated Status: Acute (8) Accidental overdose: Code(s): T50.901A - Poisoning by unspecified drugs, medicaments and biological substances, accidental (unintentional), initial encounter Status: Acute (9) Polysubstance abuse: Code(s): F19.10 - Other psychoactive substance abuse, uncomplicated Status: Acute Plan # accidental overdose # polysubstance abuse - UDS positive for cocaine, cannabis - patient had an accidental overdose on uppers and downers.? she had no intention to hurt herself - will continue monitor leukocytosis WBC 14k -> 12k - completed 5 days of antibiotics # nonischemic cardiomyopathy likely secondary to drug abuse - EF less than 15%.? cardiology arranging life vest with [facility] - monitoring on beta-blockers Coreg 6.25 mg b.i.d., losartan 12.5mg daily, further adjustment of GDMT outpatient in cardiology office -? hypokalemia potassium 3.1,repleated -? acute renal injury creatinine elevated 1.3, continue monitor, treating cardiac function with med management and life vest # chronic conditions - bipolar disorder: Holding home lorazepam, on Vraylar, mirtazapine - ADHD: On dextroamphetamine-amphetamine Diet:?heart healthy Code status:?full code Disposition:? home with outpatient drug abuse program DS: Summary Hospital Course Reason for hospitalization: drug overdose Hospital Course: Patient is a 23-year-old female past medical history of polysubstance abuse, bipolar disorder, ADHD who presents to ED on 05/22/2023 after an accidental drug overdose. Patient had mixed uppers and downers leading to her overdose. she states she had had a accidental drug overdose with prescription meds in the past, this is the 1st time with illicit drugs oxycodone and cocaine. Patient's UDS is positive for cocaine, cannabis, amphetamines. She is on treatment for ADHD. patient is planning to go to [facility] in [place]. she states she has never had a suicide attempt and has no intention to harm herself. family has been very supportive. patient was found to have pulmonary edema and found to have nonischemic cardiomyopathy with EF less than 15% severe LV dysfunction, right ventricular dysfunction. Patient was monitored in ICU for positive pressure with Airvo and CPAP while diuresing. Cardiology consulted who has placed patient on a LifeVest. we have started medications Coreg 6.25 mg b.i.d. and losartan 12.5 mg daily. We will continue to adjust goal-directed medical therapy outpatient cardiology clinic. at time of discharge patient's labs are stable, vitals stable, patient is stable for discharge home. Patient to follow-up with her PCP and Cardiology for ongoing management of heart failure and drug abuse. Patient has plans to go [facility] (contact Tanja Aguirre [phone]). Patient understands agrees with plan. Status at Discharge Cognitive/behavioral status at discharge: stable Time Spent with Patient Time attestation: Total time spent providing and/or coordinating discharge servi
[2023-05-27 14:31] LABS: Mycoplasma IgM Antibody Titer 577 U/mL (<770)
== END 2023-05-27 15:17 | disposition home or self-care (01) | DRG 917 ==
LOC: ANHED 09:41 → ANHIMU 14:37 → ANHICU 05-23 15:05 → ANH2MED 05-27 13:35 → ANHICU 05-28 08:56
PROVIDERS: Internal Medicine; Nurse Practitioner Acute Care; Admitting Provider Hospitalist; Emergency Provider Emergency Medicine; Visit Provider Student in an Organized Health Care Education/Training Program
DX: T40.2X1A Poisoning by other opioids, accidental (unintentional), initial encounter (principal); A41.9 Sepsis, unspecified organism; J18.9 Pneumonia, unspecified organism; J96.01 Acute respiratory failure with hypoxia; K85.90 Acute pancreatitis without necrosis or infection, unspecified; I42.8 Other cardiomyopathies; I50.9 Heart failure, unspecified; E87.6 Hypokalemia; R79.89 Other specified abnormal findings of blood chemistry; T40.5X1A Poisoning by cocaine, accidental (unintentional), initial encounter; F19.10 Other psychoactive substance abuse, uncomplicated; F90.9 Attention-deficit hyperactivity disorder, unspecified type; F17.290 Nicotine dependence, other tobacco product, uncomplicated; F31.9 Bipolar disorder, unspecified; Z20.822 Contact with and (suspected) exposure to COVID-19
CPT/HCPCS: 36415; 36569; 36600; 71045; 71250; 74176; 80048; 80053; 80202; 80307; 81001; 81025; 82375; 82805; 82948; 83050; 83605; 83690; 83735; 83880; 84145; 84443; 84478; 84484; 85025; 85027; 86140; 86738; 87040; 87449; 87635; 87637; 87641; 87899; 93005; 94002; 94003; 94640; 96361; 96365; 96367; 96374; 96375; 96376; 97161; 99285; A9270; C1751; C8929; G0378; J0456; J0696; J1650; J1885; J1940; J2310; J2405; J2543; J3370; J3475; J3480; J7030; J7040; J7120; Q9957

== ENCOUNTER 2024-04-06 08:44 | Emergency (ER) | payer BC, SELFPAY ==
--- NOTE | 2024-04-06 08:52 | ED.EXTPRO ---
HPI - Extremity Problem General Stated complaint: Left Hand Finger Swelling Time Seen by Provider: 04/06/24 09:25 Source: patient, RN notes reviewed and old records reviewed Mode of arrival: ambulatory Limitations: no limitations History of Present Illness HPI Narrative: Patient presents with complaints of pain and swelling surrounding the nail of the left ring finger. She reports that she was picking at the skin a few days ago, now with a pustule. She denies any other injury or trauma. Voices no other concerns or complaints today. Related Data Home Medications ?Medication ?Instructions ?Recorded ?Confirmed ?Last Taken ?Type dextroamphetamine-amphetamine 10 20 mg PO DAILY 12/25/21 04/06/24 Unknown History mg tablet lorazepam 1 mg tablet 2 mg PO HS 12/25/21 04/06/24 Unknown History cariprazine 3 mg capsule (Vraylar) 3 mg PO HS 05/22/23 04/06/24 Unknown History mirtazapine 15 mg tablet 15 mg PO HS 05/22/23 04/06/24 Unknown History Allergies Allergy/AdvReac Type Severity Reaction Status Date / Time No Known Allergies Allergy Verified 04/06/24 09:13 Review of Systems Review of Systems: All systems reviewed & are unremarkable except as noted in HPI and below Constitutional: Constitutional: Reports no additional constitutional complaints ENT: Reports system reviewed and no additional complaints, except as documented Cardiovascular: Cardiovascular: Reports no additional cardiovascular complaints Respiratory: Respiratory: Reports no additional respiratory complaints Gastrointestinal: Gastrointestinal: Reports no additional gastrointestinal complaints Integumentary/Breasts: Skin/Breast: Reports swelling (Surrounding left ring finger nail) PMFSH Past Medical History Medical History Dental caries ADHD Substance abuse Accidental overdose Bipolar 1 disorder No pertinent past medical history Surgical History Surgical History History of umbilical hernia repair H/O wisdom tooth extraction No pertinent past surgical history Family History Family History Other Unknown family medical history Social History Social History Social History: She lives with her father, mother, and sister at home. She recently quit her job at [employer] and is currently unemployed and is not currently in school. Years smoked: 5 Smoking status: Current every day smoker Tobacco type: e-cigarettes/vaping Alcohol intake: current Drinks per week: 2 Alcohol use details: Beer Substance use: current Substance use type: marijuana, crack/cocaine and prescription drug Do You Feel Safe in your Home?: Yes Lack of Transportation: No Lack of Food: Never True Current Housing: I Have Housing Concerned About Future Housing: No Difficulty Paying Gas/Electric Bills: No Difficulty Paying for Meds: No Currently Unemployed: No Education: High School Diploma/GED Difficulty w/ Childcare or Family Care: No Living arrangements: with family Occupation/Education: unemployed Gender identity (if verbalized by the patient): Female Sexual Orientation (if Verbalized by the Patient): Lesbian, Dudley, or Homosexual Spiritual care concerns: No Comments At the time of my signature, I reviewed and agree with the nursing past medical, surgical, social, and family history. There is no relevant family history pertinent to the patient complaint. Exam Const: General: cooperative, no acute distress, alert and awake Orientation/consciousness: oriented to person, oriented to place and oriented to time HENMT: Head: normal to inspection Resp: Effort & Inspection: normal respiratory effort and able to speak in complete sentences Auscultation: clear to auscultation bilaterally, no crackles, no rales, no rhonchi and no wheezes Cardio: Palpation: normal PMI Rate: regular rate Rhythm: regular rhythm Heart sounds: S1 normal heart sound present and S2 normal heart sound present Skin: Nails: other (Redness and swelling surrounding left 4th fingernail, fluctuance noted) Neuro: General: oriented to person, oriented to place and oriented to time Cranial nerves: Yes CN's II-XII intact bilaterally Psych: Appearance: grossly normal Thought process: Normal thought process present Insight: Good insight present (Psych) Judgement: Good judgement present (Psych) Course Course Level of Care: Express Care Visit Vital Signs Vital signs: Reviewed Procedures Abscess I/D hand: Date of Incision: 04/06/24 Time of Incision: 09:30 Side (if applicable): left (Ring finger) Technique: needle aspiration Amount of fluid expressed (mL): 1 Irrigation: No Packing used?: none I&D Results: Pus Abcess I&D Additional Comments: Left ring finger paronychia MDM - Extremity (Nontraumatic) MDM Narrative Medical decision making narrative: History and exam consistent with paronychia, easily drained with 18 gauge needle. Patient nontoxic appearing, stable for discharge home on p.o. antibiotic therapy. Discharge instructions reviewed with patient, as well as provided in writing per nursing staff. The instructions also include specific and strict return/GO TO THE ER as well as f/u information. All questions have been answered, and the patient deny any further questions with discharge and discharge plan. Some parts of this dictation were generated by voice recognition software and may contain typographical and/or grammatical inaccuracies. Differential Diagnosis Differential diagnosis: Likely cellulitis and other (Paronychia, abscess) Discharge Plan Discharge Clinical Impression: Paronychia Patient Disposition: Home, Self-Care Condition: Stable Instructions: Antibiotic Form, Paronychia (ED) Patient Language: Tamazight Prescriptions: No Action dextroamphetamine-amphetamine 10 mg tablet 20 mg PO DAILY lorazepam 1 mg tablet 2 mg PO HS mirtazapine 15 mg tablet 15 mg PO HS Vraylar 3 mg Capsule 3 mg PO HS carvedilol 6.25 mg tablet 6.25 mg PO Q12HR 30 Days Qty: 60 1RF losartan 25 mg tablet 12.5 mg PO DAILY 30 Days Qty: 15 0RF Follow-up/Referrals: PHYSICIAN,STAB SETTER AND DRILLER [Primary Care Provider] - Stand Alone Forms: Work/School Release IP Time of Disposition: 09:38
[2024-04-06 08:53] VITALS: BP 113/81; PULSE 86; RESP 16; TEMP 36.8; O2SAT 100
== END 2024-04-06 09:45 | disposition home or self-care (01) ==
PROVIDERS: Emergency Provider Nurse Practitioner Family
DX: L03.012 Cellulitis of left finger (principal); F17.290 Nicotine dependence, other tobacco product, uncomplicated; F90.9 Attention-deficit hyperactivity disorder, unspecified type; F31.9 Bipolar disorder, unspecified
CPT/HCPCS: 10160; 99212; G0463

== ENCOUNTER 2024-12-23 11:59 | Emergency (ER) | payer SELFPAY ==
[2024-12-23 12:20] VITALS: BP 139/84; PULSE 105; RESP 20; TEMP 37.1; O2SAT 100
--- NOTE | 2024-12-23 13:15 | ED_ITS ---
HPI - General Adult General Chief complaint: Unspecified Stated complaint: hemorrhoid Time Seen by Provider: 12/23/24 13:15 Focused HPI: This is a 24 year old female that presents to the ER for a bleeding hemorrhoid. Reports she has used different over the counter creams, sprays, suppositories, sitz baths without relief. GENERAL: Well-appearing, well-nourished, and in no acute distress. HEAD: Normocephalic, atraumatic. CHEST: Clear to auscultation. ?No respiratory distress. HEART: Regular rate and rhythm.? NEURO: ?Alert and oriented x3. Patient screened in triage and initial orders placed.? ?Additional care and disposition to be based upon?diagnostic testing and treatment. Related Data Home Medications ?Medication ?Instructions ?Recorded ?Confirmed ?Last Taken ?Type dextroamphetamine-amphetamine 10 20 mg PO DAILY 04/06/24 Unknown History mg tablet lorazepam 1 mg tablet 2 mg PO HS 12/25/21 04/06/24 Unknown History cariprazine 3 mg capsule (Vraylar) 3 mg PO HS 05/22/23 04/06/24 Unknown History mirtazapine 15 mg tablet 15 mg PO HS 05/22/23 5 Unknown History Allergies Allergy/AdvReac Type Severity Reaction Status Date / Time No Known Allergies Allergy Verified 12/23/24 12:22 [facility] Past Medical History Medical History Dental caries ADHD Substance abuse Accidental overdose Bipolar 1 disorder No pertinent past medical history Surgical History Surgical History History of umbilical hernia repair H/O wisdom tooth extraction No pertinent past surgical history Family History Family History Other Unknown family medical history Social History Social History Social History: She lives with her father, mother, and sister at home. She recently quit her job at [employer] and is currently unemployed and is not currently in school. Years smoked: 5 Tobacco type: e-cigarettes/vaping Alcohol intake: current Drinks per week: 2 Alcohol use details: Beer Substance use: current Substance use type: marijuana, crack/cocaine and prescription drug Do You Feel Safe in your Home?: Yes Lack of Transportation: No Lack of Food: Never True Current Housing: I Have Housing Concerned About Future Housing: No Difficulty Paying Gas/Electric Bills: No Difficulty Paying for Meds: No Currently Unemployed: No Education: High School Diploma/GED Difficulty w/ Childcare or Family Care: No Living arrangements: with family Occupation/Education: unemployed Gender identity (if verbalized by the patient): Female Sexual Orientation (if Verbalized by the Patient): Lesbian, Dudley, or Homosexual Spiritual care concerns: No Course Vital Signs Vital signs: Vital Signs Temperature 98.7 F 12/23/24 12:20 Pulse Rate 105 H 12/23/24 12:20 Respiratory Rate 20 12/23/24 12:20 Blood Pressure 139/84 12/23/24 12:20 Pulse Oximetry 100 12/23/24 12:20 Oxygen Delivery Room Air 12/23/24 12:20 Temperature 98.7 F 12/23/24 12:20 Pulse Rate 105 H 12/23/24 12:20 Respiratory Rate 20 12/23/24 12:20 Blood Pressure 139/84 12/23/24 12:20 Pulse Oximetry 100 12/23/24 12:20 Oxygen Delivery Room Air 12/23/24 12:20 Medical Decision Making [facility] Narrative Medical decision making narrative: Patient left after medical screening exam before any further evaluation or management Vital Signs Vital Signs: Vital Signs Temperature 98.7 F 12/23/24 12:20 Pulse Rate 105 H 12/23/24 12:20 Respiratory Rate 20 12/23/24 12:20 Blood Pressure 139/84 12/23/24 12:20 Pulse Oximetry 100 12/23/24 12:20 Oxygen Delivery Room Air 12/23/24 12:20 Temperature 98.7 F 12/23/24 12:20 Pulse Rate 105 H 12/23/24 12:20 Respiratory Rate 20 12/23/24 12:20 Blood Pressure 139/84 12/23/24 12:20 Pulse Oximetry 100 12/23/24 12:20 Oxygen Delivery Room Air 12/23/24 12:20 Discharge Plan Discharge Clinical Impression: Bright red blood per rectum Patient Disposition: Elopement After Seen by Prov Patient Language: Singaporean Prescriptions: No Action dextroamphetamine-amphetamine 10 mg tablet 20 mg PO DAILY lorazepam 1 mg tablet 2 mg PO HS amoxicillin-pot clavulanate 875-125 mg tablet 1 tablet PO Q12H Qty: 14 0RF mirtazapine 15 mg tablet 15 mg PO HS Vraylar 3 mg Capsule 3 mg PO HS carvedilol 6.25 mg tablet 6.25 mg PO Q12HR 30 Days Qty: 60 1RF losartan 25 mg tablet 12.5 mg PO DAILY 30 Days Qty: 15 0RF Follow-up/Referrals: PHYSICIAN,REHABILITATION MEDICINE PHYSICIAN [Primary Care Provider, Internal Medicine]
--- NOTE | 2024-12-23 14:40 | PC.NURSE ---
Pt. call x1 in WR to be brought back to a room.
--- OUTSIDE RECORDS SUMMARY | 2024-12-23 19:23 | XMS_ITS | Clinical Summary ---
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 Gender Identity Not on file Sexual Orientation Not on file Plan of Treatment Health Maintenance Due Date Last Done Comments Hepatitis C Virus (HCV) Screening 2000 TdaP Immunization 2000 Human Papillomavirus (HPV) Immunization (1 - 3-dose series) 05/26/2015 Hepatitis B Immunization (1 of 3 - 19+ 3-dose series) 05/26/2019 Influenza Immunization (#1) 2024 SARS-COV-2 Immunization ( season) 2024 Respiratory Syncytial Virus (RSV) Immunization (Adult) (1 - 1-dose 75+ series) 05/26/2075 Meningococcal Immunization (ACWY) Aged Out No longer eligible based on patient's age to complete this topic Pneumococcal Immunization Combined Aged Out No longer eligible based on patient's age to complete this topic Rotavirus Immunization Aged Out No lo nger eligible based on patient's age to complete this topic
--- OUTSIDE RECORDS SUMMARY | 2024-12-23 19:23 | XMS_ITS | Clinical Summary ---
Author Organization [facility] Address [address] [place] [address] Care Team Providers Care Contracts Manager Name Role Phone Mari Hirsch NP Primary Care Provider + [phone] Margarita Michael Unavailable Unavailable Allergies No known active allergies Medications hydrOXYzine (VISTARIL) 50 mg capsule TAKE ONE CAPSULE BY MOUTH EVERY 8 HOURS NEEDED FOR ANXIETY 4 Active mirtazapine (REMERON) 30 mg tablet Take 1 tablet (30 mg total) by mouth nightly at bedtime 4 Active spironolactone (ALDACTONE) 25 mg tablet Take 1 tablet (25 mg total) by mouth daily 30 tablet 11 4 Active sacubitriL-valsarta n (ENTRESTO) 24-26 mg tabletIndications:c hronic heart failure Take 1 tablet by mouth 2 (two) times a day 60 tablet 11 4 Active magnesium oxide (MAG-OX) 400 mg (241.3 mg elemental magnesium) tabletIndications:h ypomagnesemia Take 1 tablet (400 mg total) by mouth daily 90 tablet 3 4 Active empagliflozin (Jardiance) 10 mg tablet Take 1 tablet (10 mg total) by mouth daily 4 Active carvediloL (COREG) 3.125 mg tabletIndications:H istory of cardiomyopathy Take 1 tablet (3.125 mg total) by mouth 2 (two) times a day with meals 180 tablet 3 07/15/202 4 Active Active Problems Problem Noted Date Diagnosed Date Dilated cardiomyopathy 08/05/2023 Substance use disorder 08/05/2023 Heart failure, unspecified 07/15/2023 Normocytic anemia 07/15/2023 Mood disorder 12/19/2017 Dizziness and giddiness 12/19/2017 Nausea 12/19/2017 Shaking 12/19/2017 Umbilical hernia 01/08/2011 Surgical History Surgery Date Site/Laterality Comments UMBILICAL HERNIA REPAIR Family History Relation Name Status Comments Brother 1 Alive Brother 2 Alive Father Alive Mother Alive Sister 1 Alive Sister 2 Alive Social History Tobacco Use Types Packs/Day Years Used Date Smoking Tobacco: Never Smokeless Tobacco: Never Tobacco Cessation:Counseling Given: Not Answered Comments No Sex and Gender Information Value Date Recorded Sex Assigned at Not on file 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 Gender Identity Not on file Sexual Orientation Not on file Last Filed Vital Signs Vital Sign Reading Time Taken Comments Blood Pressure 90/50 09/01/2023 3:03 PM CDT Pulse 80 09/01/2023 3:03 PM CDT Temperature 36.9 C (98.4 F) 05/18/2018 1:40 PM CDT Respiratory Rate 16 08/18/2023 10:40 AM CDT Oxygen Saturation 99% 09/01/2023 3:03 PM CDT Inhaled Oxygen Concentration - - Weight 55.3 kg (122 lb) 09/01/2023 3:03 PM CDT Height 165.1 cm (5' 5) 09/01/2023 3:03 PM CDT Body Mass Index 20.3 09/01/2023 3:03 PM CDT Plan of Treatment Health Maintenance Due Date Last Done Comments Cervical Cancer Screening 2000 Depression Screening 2000 Hepatitis C Screening 2000 DTaP/Tdap/Td Vaccine (1 - Tdap) 05/26/2011 Varicella Vaccines (1 of 2 - 13+ 2-dose series) 2013 HPV Vaccines (1 - 3-dose series) 05/26/2015 Hepatitis B Screening 2018 Regular Well Visit/Exam 18-64 2018 Influenza Vaccine (#1) 2024 Pneumococcal vaccine <65 Aged Out No longer eligible based on patient's age to complete this topic Insurance [employer] ACCESS OOS [employer] OOS Care Teams Contracts Manager Relationship Specialty Start Date End Date Mari Hirsch NP [address] [place], [place] [id number] PCP - General Nurse Practitioner 04/21/18 Margarita Michael Primary Coal Weigher 11/04/24
--- OUTSIDE RECORDS SUMMARY | 2024-12-23 19:23 | XMS_ITS | Data Portability ---
Author Organization [facility] Address [address] [place] [address] Care Team Providers Care Senior Inform[employer] Etl Developer Name Role Phone BAR [place] Primary Care Provider Assessment Encounter Date Assessment Date Assessment LastModified by Organization Details LastModified Time 08/23/2021 08/23/2021 Annual gynecological exam performed. Patient will come back in a year unless there are new symptoms. Not available 08/23/2021 10:01:25 Plan of Treatment Reminders Order Date Submit Date Provider Last Modified By Organization Details Last Modified Time Details Appointments None record ed. Lab None record ed. Referral None record ed. Procedures None record ed. Surgeries None record ed. Imaging None record ed. Medication Orders None record ed. Patient TargetsNo targets recorded. Patient InstructionsNo instructions recorded. Reason for Referral None Reported. 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 Shift in norma sugge stive of bacte rial vagin osis. Elect александр hailee agueda d by Josue Leigh am, CT on 2021 at 11:20 AM ----- ----- ----- ----- ----- ----- ----- ----- ----- ----- ----- ----- ----- ----- ----- ----- ----- ---- COMME NT: Note: This speci men was revie wed by a Cytot echno logis t and/o r Patho logis t (as indic ated in this repor t) after evalu ation using the Thinp rep Imagi ng Syste m. CLINI LOREN INFOR MATIO N: Menst rual Statu s: LMP (if appli cable ): Clini loren Histo ry/Pr eviou s Pap: Type of Neopl janna (if appli cable ): Signi fican t Clini loren Findi ngs: Other Histo ry: Hormo coy (if appli cable ): PAP EDUCA CAROLINA L NOTE: The Pap Test is a scree jazmin test with an inher ent false negat haily rate. Liqui d-bas ed sampl ing may decre ase, but will not elimi kylie, false negat haily resul ts. A negat haily resul t does not precl ude the prese nce and/o r devel opmen t of disea se, since the prese nce of abnor mal cells in the sampl e depen ds on the locat ion of the lesio n and sampl ing techn ique. Maldonado nued regul ar scree jazmin is the best metho d of cance r preve ntion . If repor tomás cytol ogic findi ng do not corre late with physi loren and/o r histo rical findi ngs, furth er inves tigat ion is recom ricki monzon, as felipei bettye herr nted. Not Available [facility] [address] [place], [address], 08/29/2021 12:23:33 08/24/19 22 08/23/2021 CT/GC (SHALONDA) , THINP REP VIAL chlamydia trachomatis, PCR Negati ve negati ve Not Available [facility] [address] [place], [address], 08/29/2021 12:23:33 08/24/19 22 08/23/2021 CT/GC (SHALONDA) , THINP REP VIAL neisseria gonorrhoeae, PCR Negati ve negati ve Not Available [facility] [address] [place], [address], 08/29/2021 12:23:33 08/24/19 22 08/23/2021 TRICH OMONA S VAGIN RY (RRNA ) trichomonas vaginalis ribosomal RNA (rrna) Negati ve negati ve Not Available [facility] [address] [place] [address], [id number], 08/29/2021 12:23:34 Result Notes None recorded. Procedures Surgical History Date Name Laterality Status Provider Name and Address Organization Details Recorded Time Hernia repair w/mesh completed [facility] 08/23/2021 10:05:38 extraction of wisdom tooth completed [facility] 08/23/2021 10:06:35 Imaging Results None recorded. Procedure Notes None recorded. Medical Equipment None Reported. Allergies No known drug allergies Medications Name Sig Start Date Stop Date Status Note LastModified by Organization Details LastModified Time metronidazol e 0.75 % (37.5 mg/5 gram) vaginal gel INSERT 1 APPLICATORF UL VAGINALLY EVERY NIGHT AT BEDTIME FOR 5 DAYS active Not Available Not Available N ot Available dextroamphet amine-amphet amine 10 mg tablet TAKE 1 TABLET BY MOUTH TWICE A DAY NEEDED active Not Available Not Available No t Available hydroxyzine HCl 50 mg tablet TAKE 1 TABLET BY MOUTH EVERY DAY AT BEDTIME NEEDED active Not Available Not Available No t Available dextroamphet amine-amphet amine ER 20 mg 24hr capsule,exte nd release TAKE 1 CAPSULE BY MOUTH EVERY DAY IN THE MORNING active Not Available Not Available No t Available zaleplon 10 mg capsule TAKE 1 CAPSULE (10 MG) BY MOUTH DAILY AT BEDTIME NEEDED active Not Available Not Available No t Available lorazepam 1 mg tablet TAKE 1 TABLET BY MOUTH TWICE A DAY NEEDED active Not Available Not Available No t Available dextroamphet amine-amphet amine 5 mg tablet TAKE 1 TABLET BY MOUTH TWICE A DAY NEEDED active Not Available Not Available No t Available dextroamphet amine-amphet amine ER 15 mg 24hr capsule,exte nd release TAKE 1 CAPSULE BY MOUTH EVERY MORNING active Not Available Not Available No t Available escitalopram 10 mg tablet TAKE 1 TABLET BY MOUTH EVERY DAY UNTIL DIRECTED TO STOP active Not Available Not Available No t Available bupropion HCl XL 150 mg 24 hr tablet, extended release TAKE 1 TABLET BY MOUTH EVERY DAY UNTIL DIRECTED TO STOP active Not Available Not Available No t Available Vitals Date Recorded Body height Body mass index (BMI) Body weight Systolic And Diastolic Provider Name and Address Organization Details Last Updated DateTime 08/23/2021 163.83 cm 19.1 kg/m2 43849.94 g 112/76 mm[Hg] Nahed [facility] 08/23/2021 10:01:59 Social History Question Answer Notes LastModified by Organizat ion Details LastModified Time Tobacco Smoking Status Current Every Day Smoker Nahed [facility] 08/23/2021 10:05:14 Do You Have An Advance Directive? No Information n ot available 08/23/2021 How Many Years Have You Consumed Alcohol? 1 Information not available 08/23/2021 Are You Blind Or Do You Have Difficulty Seeing? Yes Information n ot available 08/23/2021 What Is Your Level Of Caffeine Consumption? Moderate Information not available 08/23/2021 How Much Tobacco Do You Chew? None Information not available 08/23/2021 In The 14 Days Before Symptom Onset, Have You Had Close Contact With A Laboratory-confirm ed COVID-19 While That Case Was Ill? No Information n ot available 08/23/2021 In The 14 Days Before Symptom Onset, Have You Had Close Contact With A Person Who Is Under Investigation For COVID-19 While That Person Was Ill? No Information not available 08/23/2021 Have You Been To An Area Known To Be High Risk For COVID-19? No Information not available 08/23/2021 Are You Deaf Or Do You Have Serious Difficulty Hearing? No Information not available 08/23/2021 What Type Of Diet Are You Following? REGULAR Information n ot available 08/23/2021 What Is The Highest Grade Or Level Of School You Have Completed Or The Highest Degree You Have Received? [id number] Information not available 08/23/2021 Are There Any Guns Present In Your Home? Yes Information not available 08/23/2021 Do You Use Protection During Sex? Always Information not available 08/23/2021 Do You Use Your Seat Belt Or Car Seat Routinely? Yes Information not available 08/23/2021 Do You Have Smoke And Carbon Monoxide Detectors In Your Home? Yes Information not available 08/23/2021 At What Age Did You Start Smoking Tobacco? 17 Information not available 08/23/2021 How Much Tobacco Do You Smoke? 2 PPW Information not available 08/23/2021 Do You Use Sunscreen Routinely? Yes Information not available 08/23/2021 How Many Years Have You Smoked Tobacco? 4 Information not available 08/23/2021 Have You Used IV Drugs? No Information not available 08/23/2021 Do You Have Difficulty Walking Or Climbing Stairs? No Information not available 08/23/2021 Sex: Unknown Functional Status Question Answer Note LastModified by Organizat ion Details LastModified Time Do you use any illicit or recreational drugs? No Information not available 08/23/2021 Do you or have you ever used any other forms of tobacco or nicotine? Yes Information not available 08/23/2021 What is your level of alcohol consumption? Moderate Information not available 08/23/2021 Are you able to walk independently without assistance or assistive devices? YESWOREST Information not available 08/23/2021 Are you able to care for yourself independently? 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 No Information not available 08/23/2021 What is your exercise level? Occasional Information not available 08/23/2021 Mental Status Question Answer Note LastModified by Organization D etails LastModified Time Do you feel stressed (tense, restless, nervous, or anxious, or unable to sleep at night)? [id number] Information not available 08/23/2021 Family History Nothing Reported. Medical History Condition Response Anxiety Disorder Y Other Y No Past Medical History Y Depression/ depression Y Gynecological History Statement/Question Response Flow Moderate Date of LMP 08/18/2021 On BCP's at Conception? N N Was last menstrual period normal Y STIs/STDs N HPV Vaccine Y Duration of Flow (days) 5 Current Control Method None Are cycles usually normal Y Sexually Active? Y Condoms Menses Monthly Y Age of first menstrual cycle 16 Date of Last Pap Smear Sexual Problems? N Desired Control Method Condoms LMP Approximate N Obstetrics History GPAL:G 0 P 0 0 0 0 Type Value Living 0 Total 0 Past Encounters Encounter ID Performer Location Encounter Start Date Encounter Closed Date Diagnosis/Indication Diagnosis SNOMED-CT Code Diagnosis ICD10 Code Diagnosis IMO Codes Diagnosis Note [id number] [facility] [address] [address] 08/23/2021 09:43:39 08/23/2021 10:33:59 Gynecologic examination 94513197 Z01.419 Take Calcium with Vitamin D 1200mg daily if not receiving in daily diet. It is strongly advised to have an annual flu shot and up can obtain at most pharmacies . If you have not had a TDap shot in the last 10 years you should obtain one as well. Discussed with patient & provided with informatio n regarding Gardisil vaccine to prevent the 4 strains for HPV that cause cervical cancer if under age 26. Encourage safe sexual practices, to use condoms and limit partners if not already in a monogamous relationsh ip. Do monthly self breast exams. Have mammogram yearly or every other year depending on family history. BRCA testing is now available for patients with strong genetic history of female cancer. If interested contact the office. Engage in daily exercise of low impact aerobic exercise 45-60 minutes 4-5 times weekly. Avoid tobacco and illicit drugs as well as using moderation with alcohol intake less than 1-2 8 oz beverages daily. This lifestyle behavior pattern will lead to less health conditions and longer life span. If BMI greater than 25 weight watchers or dietary consult advised. Patient received above instructio ns, and questions have been answered. If you have any questions please call or respond to this email. Patient was made aware of the patient portal and may obtain a paper copy of today's plan if desired. Pap sentSTD Screen sentGeneti c Screen discussedC olon Screen naDexa Screen naRoutine Labs naMammo naCounsele d on HPV vacc- completed Health Concerns Section Related Observation LastModified by Organization Detai ls LastModified Time None Recorded Concern Status LastModified by Organization Details LastModified Time None Recorded Advance Directives Directive N: Payers Insurance Date Sequence Insurance Name Policy Number Policy Larkin Covered Member ID Larkin Member ID Guarantor Name 08/23/2021 1 [facility] (MEDICARE REPLACEMENT/A DVANTAGE - PPO) [id number] 3 Luli Jose Alfredo [id number] Luli Jose Alfredo 08/27/2021 1 [employer] (PPO) [id number] Cruz P Jose Alfredo [id number] Luli Jose Alfredo Notes Date Note Type Note Provider Name and Address Organization Details Recorded Time 2 text/html Annual GYNReported by PatientHistoryFor history, patient reportsno gynecologic complaints.Genitourina ry symptomsFor menstrual cycle, patient reportsnormal menses. For urinary symptoms, patient reportsno hematuriaandno incontinence. For vulva, patient reportsno genital lesion. For vagina, patient reportsnormal vaginal discharge.Breast symptomsFor breast, patient reportsno breast pain,no breast lump, andno nipple discharge.Contraceptio nFor current contraception, patient reportscondoms.Endocri ne symptomsFor sexual complaints, patient reportsno sexual complaints,no pain during intercourse, andnormal libido. For menopausal symptoms, patient reportsno menopausal symptomsandnormal vaginal lubrication.Psychologi loren symptomsFor psychological symptoms, patient reportsno depression,no anxiety, andno pmdd.Preventative measuresFor preventive measures, patient reportsencourage self breast examination,encourage regular exercise,encourage no tobacco use,encourage regular mammograms starting age 40, andfollowed with yearly pap smears. Valerie Lezama, [facility]- [address], [place], [address], [place] [facility] 08/23/2021 10:30:52 OBGyn Episode No OBEpisode recorded.
--- OUTSIDE RECORDS SUMMARY | 2024-12-23 19:23 | XMS_ITS | Data Portability ---
Author Organization [facility], [employer] Address [address] [place] [address] Care Team Providers Care Vp Software Name Role Phone SHERLYN HAYS Community Integration Specialist Assessment Encounter Date Assessment Date Assessment LastModified by Organization Details LastModified Time 06/15/2020 06/15/2020 Patient presente d to office today for their Medicare Annual Wellness Visit. Education was provided on healthy nutrition, including a diet rich in fruits and vegetables, minimizing simple carbohydrates, salt, and saturated fats. Encouraged regular cardiovascular exercise such as walking at least 30 minutes daily, 5 times per week. Not available 06/15/2020 15:36:02 09/19/2023 09/19/2023 Recommends healthy nutrition, including a diet rich in fruits and vegetables, minimizing simple carbohydrates, salt, and saturated fats. Encouraged regular cardiovascular exercise such as walking at least 30 minutes daily, 5 times per week. Not available 09/19/2023 12:47:37 Plan of Treatment Reminders Order Date Submit Date Provider Last Modified By Organization Details Last Modified Time Details Appointments None recorded. Lab CT + NG + TV, RNA, unspecifie d specimen 2023 024 [facility], [address], [place], [address], 4 13:01:33 RPR (rapid plasma reagin), titer, serum 2023 024 [facility], [address], [place], [address], 4 13:01:34 hsv (1+2) igg Ab, serum 2023 024 [facility], [address], [address], [place], [address], 4 13:01:28 hepatitis panel (A+B+C), acute, serum 2023 024 [facility], [address], [address], [place], [address], 4 15:27:24 HIV 1+2 Ab + HIV1 p24 Ag, quantitati ve immunoassa y, serum 2023 024 [facility], [address], [address], [place], [address], 4 15:27:25 vitamin B1 (thiamine) , blood 2023 024 [facility], [address], [address], [place], [address], 4 08:13:17 vitamin B6 (pyridoxin e), plasma 2023 024 [facility], [address], [address], [place], [address], 4 08:13:17 vitamin B12, serum 2023 024 [facility], [address], [place], [address], 4 08:13:17 TSH + free T4, serum 2023 024 [facility], [address], [address], [place], [address], 4 08:13:17 T3, free, serum or plasma 2023 024 [facility], [address], [address], [place], [address], 4 08:13:17 CMP, serum or plasma 2023 024 [facility], [address], [address], [place], [address], 4 08:13:17 CBC w/ auto diff 2023 024 [facility], [address], [address], [place], [address], 4 08:13:18 lipid panel, serum 2023 024 [facility], [address], [address], [place], [address], 4 15:27:24 magnesium, serum or plasma 2023 024 [facility], [address], [address], [place], [address], 4 08:13:18 CT + NG + TV, RNA, unspecifie d specimen 2020 021 [facility], [address], [address], [place], [address], 1 15:55:25 RPR (rapid plasma reagin), titer, serum 2020 021 [facility], [address], [address], [place], [address], 1 15:55:23 hsv (1+2) igg Ab, serum 2020 021 [facility], [address], [address], [place], [address], 1 15:55:25 hepatitis panel (A+B+C), acute, serum 2020 [facility], [address], [address], [place], [address], 23:20:42 HIV 1+2 Ab + HIV1 p24 Ag, quantitati ve immunoassa y, serum 2020 [facility] [address], [address], [place], [address], 23:20:42 microalbum in/creatin ine, mass ratio, urine 2020 [facility], [address], [place], [address], 08:31:47 BMP, serum or plasma 2020 [facility], [address], [place], [address], 08:31:47 magnesium, serum or plasma 2020 [facility], [address], [address], [place], [address], 08:31:48 CBC w/ auto diff 2020 [facility], [address], [place], [address], 08:33:03 retic count, blood 2020 [facility], [address], [address], [place], [address], 08:33:03 iron + TIBC + ferritin, serum 2020 [facility], [place], [address], 08:33:03 hepatitis C Ab, serum 2020 [facility], [address], [address], [place], [address], 09:00:42 HbA1c (hemoglobi n A1c), blood 2020 [facility], [address], [address], [place], [address], 09:00:42 CBC w/ auto diff 2020 [facility], [address], [address], [place], [address], 09:00:42 CMP, serum or plasma 2020 [facility], [address], [address], [place], [address], 09:00:42 TSH + free T4, serum 2020 [facility], [address], [address], [place], [address], 09:00:42 T3, free, serum or plasma 2020 [facility], [address], [place], [address], 09:00:42 vitamin B1 (thiamine) , blood 2020 [facility], [address], [place], [address], 09:00:43 vitamin B6 (pyridoxin e), plasma 2020 [facility], [address], [place], [address], 09:00:43 vitamin B12, serum 2020 021 [facility], [address], [place], [address], 09:00:[address] referral [address] [facility], [address] [place] [address], [address], 4 08:12:[address]/dietiti an referral 2020 021 [facility], [address] [facility] , [place], [address], 08:59:[address] referral [address] [facility], [address] [place] [address], [address], 08:59:[address] referral 2020 021 [facility] John Tanner, [address], [address], [place], [address], 08:59:19 Procedures None recorded. Surgeries None recorded. Imaging electrocar diogram 2023 024 [facility], [address] , [address], [place], [address], 4 13:41:53 XR, chest, 2 view 2020 021 [facility] ([facility]), [address] [facility] [address], [place], [address], 09:59:01 Medication Orders trazodone 50 mg tablet 2023 024 [facility], [address] [place], [place], [id number], 13:00:03 ferrous sulfate 325 mg (65 mg iron) tablet 2020 021 [facility] [address] [place], [address], 15:54:49 bupropion HCl XL 300 mg 24 hr tablet, extended release 2020 021 [address] [place], [address], 4 12:38:28 Lexapro 10 mg tablet 2020 021 [address], [address] [place], [address], 12:39:13 Patient TargetsNo targets recorded. 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 for Body mass index less than 20 Referring Physician: Severo Fuentes, Internal Medicine, Encounter Date: 06/15/2020 Ultrasound Technologist Referral for Sc reening for malignant neoplasm of cervix Referring Physician: Severo Fuentes Internal Medicine, Encounter Date: 06/15/2020 Psychiatrist Referral for Mi xed anxiety and depressive disorder Referring Physician: Severo Fuentes Internal Medicine, Encounter Date: 06/15/2020 Ultrasound Technologist Referral for Sc reening for malignant neoplasm of cervix Referring Physician: Severo Fuentes Internal Medicine, Encounter Date: 09/19/2023 Results Created Date Observation Date Name Description Value Unit Range Abnormal Flag Note LastModifiedBy Organization Detail LastModifiedTime 05/05/19 21 05/09/2020 TSH + free T4, serum TSH 1.55 mIU/L normal Refer ence Range 1-19 Years 0.50- 4.30 Pregn nelly Range s First trime ster 0.26- 2.66 Secon d trime ster 0.55- 2.73 Third trime ster 0.43- 2.91 Not Available [address], [address], 05/10/2020 00:36:45 05/05/19 21 05/09/2020 TSH + free T4, serum T4, free 1.1 NG/dL 0.8-1. 4 normal Not Available [address], [address], 05/10/2020 00:36:45 05/05/1905/09/2020 CMP, serum or plasm a glucose 81 mg/dL 65-99 normal Fasti ng refer ence inter ava Not Available [address], [address], 05/10/2020 00:36:45 05/05/19 21 05/09/2020 CMP, serum or plasm a urea nitrogen (BUN) 9 mg/dL 7-20 normal Not Available [address], [address], 05/10/2020 00:36:45 05/05/19 21 05/09/2020 CMP, serum or plasm a creatinine 0.82 mg/dL 0.50-1 .00 normal Not Available [facility] [address], [address], 05/10/2020 00:36:45 05/05/19 21 05/09/2020 CMP, serum or plasm a eGFR non-afr. [place] 104 mL/mi n/1.7 3m2 > or = 60 normal Not Available [address], [address], 05/10/2020 00:36:45 05/05/19 21 05/09/2020 CMP, serum or plasm a eGFR 120 mL/mi n/1.7 3m2 > or = 60 normal Not Available [address], [address], 05/10/2020 00:36:45 05/05/19 21 05/09/2020 CMP, serum or plasm a BUN/creatini ne ratio NOT APPLIC ABLE (calc ) 6-22 Not Available [address], [address], 05/10/2020 00:36:45 05/05/19 21 05/09/2020 CMP, serum or plasm a sodium 137 mmol/ L 135-14 6 normal Not Available [address], [address], 05/10/2020 00:36:45 05/05/19 21 05/09/2020 CMP, serum or plasm a potassium 3.7 mmol/ L 3.8-5. 1 low Not Available [address], [address], 05/10/2020 00:36:45 05/05/1905/09/2020 CMP, serum or plasm a chloride 102 mmol/ L 98-110 normal Not Available [address], [address], 05/10/2020 00:36:45 05/05/1905/09/2020 CMP, serum or plasm a carbon dioxide 28 mmol/ L 20-32 normal Not Available [address], [address], 05/10/2020 00:36:45 05/05/19 21 05/09/2020 CMP, serum or plasm a calcium 9.1 mg/dL 8.9-10 .4 normal Not Available [facility] [address], [address], 05/10/2020 00:36:45 05/05/1905/09/2020 CMP, serum or plasm a protein, total 6.8 g/dL 6.3-8. 2 normal Not Available [address], [address], 05/10/2020 00:36:45 05/05/19 21 05/09/2020 CMP, serum or plasm a albumin 4.7 g/dL 3.6-5. 1 normal Not Available [address], [address], 05/10/2020 00:36:45 05/05/1905/09/2020 CMP, serum or plasm a globulin 2.1 g/dL_ (calc ) 2.0-3. 8 normal Not Available [address], [address], 05/10/2020 00:36:45 05/05/1905/09/2020 CMP, serum or plasm a albumin/glob ulin ratio 2.2 (calc ) 1.0-2. 5 normal Not Available [address], [address], 05/10/2020 00:36:45 05/05/1905/09/2020 CMP, serum or plasm a bilirubin, total 0.5 mg/dL 0.2-1. 1 normal Not Available [address], [address], 05/10/2020 00:36:45 05/05/1905/09/2020 CMP, serum or plasm a alkaline phosphatase 56 U/L 36-128 normal Not Available [facility] [address], [address], 05/10/2020 00:36:45 05/05/19 21 05/09/2020 CMP, serum or plasm a AST 15 U/L 12-32 normal Not Available [address], [address], 05/10/2020 00:36:45 05/05/1905/09/2020 CMP, serum or plasm a ALT 12 U/L 5-32 normal Not Available [address], [address], 05/10/2020 00:36:45 05/05/1905/09/2020 CBC w/ auto diff white blood cell count 6.1 thous and/u L 3.8-10 .8 normal Not Available [address], [address], 05/10/2020 00:36:45 05/05/1905/09/2020 CBC w/ auto diff red blood cell count 3.79 stephie on/uL 3.80-5 .10 low Not Available [address], [address], 05/10/2020 00:36:45 05/05/1905/09/2020 CBC w/ auto diff hemoglobin 10.7 g/dL 11.7-1 5.5 low Not Available [address], [address], 05/10/2020 00:36:45 05/05/1905/09/2020 CBC w/ auto diff hematocrit 32.8 % 35.0-4 5.0 low Not Available [address], [address], 05/10/2020 00:36:45 05/05/1905/09/2020 CBC w/ auto diff MCV 86.5 fL 80.0-1 00.0 normal Not Available [address], [address], 05/10/2020 00:36:45 05/05/19 21 05/09/2020 CBC w/ auto diff MCH 28.2 pg 27.0-3 3.0 normal Not Available [address], [address], 05/10/2020 00:36:45 05/05/19 21 05/09/2020 CBC w/ auto diff MCHC 32.6 g/dL 32.0-3 6.0 normal Not Available [address], [address], 05/10/2020 00:36:45 05/05/19 21 05/09/2020 CBC w/ auto diff RDW 14.0 % 11.0-1 5.0 normal Not Available [address], [address], 05/10/2020 00:36:45 05/05/19 21 05/09/2020 CBC w/ auto diff platelet count 218 thous and/u L 140-40 0 normal Not Available [address], [address], 05/10/2020 00:36:45 05/05/19 21 05/09/2020 CBC w/ auto diff MPV 11.6 fL 7.5-12 .5 normal Not Available [address], [address], 05/10/2020 00:36:45 05/05/19 21 05/09/2020 CBC w/ auto diff absolute neutrophils 3623 cells /uL 1500-7 800 normal Not Available [address], [address], 05/10/2020 00:36:45 05/05/19 21 05/09/2020 CBC w/ auto diff absolute lymphocytes 1543 cells /uL 850-39 00 normal Not Available [address], [address], 05/10/2020 00:36:45 05/05/19 21 05/09/2020 CBC w/ auto diff absolute monocytes 537 cells /uL 200-95 0 normal Not Available [address], [address], 05/10/2020 00:36:45 05/05/19 21 05/09/2020 CBC w/ auto diff absolute eosinophils 317 cells /uL 15-500 normal Not Available [address], [address], 05/10/2020 00:36:45 05/05/19 21 05/09/2020 CBC w/ auto diff absolute basophils 79 cells /uL 0-200 normal Not Available [address], [address], 05/10/2020 00:36:45 05/05/19 21 05/09/2020 CBC w/ auto diff neutrophils 59.4 % normal Not Available [address], [address], 05/10/2020 00:36:45 05/05/19 21 05/09/2020 CBC w/ auto diff lymphocytes 25.3 % normal Not Available [address], [address], 05/10/2020 00:36:45 05/05/19 21 05/09/2020 CBC w/ auto diff monocytes 8.8 % normal Not Available [address], [address], 05/10/2020 00:36:45 05/05/19 21 05/09/2020 CBC w/ auto diff eosinophils 5.2 % normal Not Available [address], [address], 05/10/2020 00:36:45 05/05/19 21 05/09/2020 CBC w/ auto diff basophils 1.3 % normal Not Available [address], [place], [address], 05/10/2020 00:36:45 05/05/19 21 05/09/2020 hepat itis C virus Ab, serum hepatitis C antibody NON-RE ACTIVE non-re active normal Not Available [address], [place], [address], 05/10/2020 00:36:46 05/05/1905/09/2020 hepat itis C virus Ab, serum index 0.05 <1.00 normal HCV antib lucille was non-r eacti ve. There is no labor atory evide nce of HCV infec tion. In most cases , no furth er actio n is requi red. Howev er, if recen t HCV expos ure is suspe cted, a test for HCV RNA (test code 78421 ) is sugge sted. For addit ional infor jackie guardado pleas e refer to http: //[facility] stdia gnost ics.c om/fa q/FAQ 22v1 (This link is being provi ded for infor jackie wiley/ educa karina l purpo ses only. ) Not Available [address], [place], [address], 05/10/2020 00:36:46 05/05/1905/09/2020 vitam in B1 (thia mine) , blood vitamin B1 (thiamine), serum/plasma , lc/MS/MS 12 nmol/ L 8-30 Vitam in suppl ement ation withi n 24 hours prior to blood draw may affec t the accur acy of resul ts. This test was devel oped and its betsy tical perfo rmanc e anne cteri stics have been deter mined by [facility]. It has not been clear ed or appro norm by the FDA. This assay has been valid ated pursu ant to the CLIA regul ation s and is used for clini loren purpo ses. Not Available [employer] [address] [address] [place], [address], 05/10/2020 00:36:46 05/05/19 21 05/09/2020 vitam in B12, serum vitamin B12 511 pg/mL 200-11 00 normal Not Available [facility] [address] [place], [address], 05/10/2020 00:36:47 05/05/1905/09/2020 T3, free, serum or plasm a T3, free 3.2 pg/mL 3.0-4. 7 normal Not Available [facility] [address] [address] [place], [address], 05/10/2020 00:36:47 05/05/1905/09/2020 HbA1c (hemo globi n A1c), blood hemoglobin A1C 4.9 %_of_ total _HGB <5.7 normal For the purpo se of warren wu for the prese nce of diabe clare: <5.7% Consi stent with the absen ce of diabe clare 5.7-6 .4% Consi stent with incre ased risk for diabe clare (pred iabet es) > or =6.5% Consi stent with diabe clare This assay resul t is consi stent with a decre ased risk of diabe clare. Curre ntly, no conse nsus exist s zainab laird use of hemog lobin A1c for diagn osis of diabe clare in child kimberlyn. Accor ding to Ameri can Diabe clare Assoc iatio n (ADA) guide lines , hemog lobin A1c <7.0% repre sents optim al contr ol in non-p regna nt diabe tic patie nts. Diffe rent ri cs may apply to speci fic patie nt popul ation s. Stand ards of Medic al Care in Diabe clare(A DA). Not Available [facility] [address] [place], [address], 05/10/2020 00:36:47 0305/09/2020 vitam in B6 (pyri doxin e), plasm a vitamin B6, plasma 5.5 NG/mL 2.1-21 .7 Vitam in suppl ement atoral withi n 24 hours prior to blood draw may affec t the accur acy of resul ts. This test was devel ashley and its betsy tical perfo rmanc e anne cteri stics have been deter mined by [facility]. It has not been clear ed or appro norm by the FDA. This assay has been valid ated pursu ant to the CLIA regul ation s and is used for clini loren purpo ses. Not Available [employer] [facility] [address] [place], [address], 05/10/2020 00:36:48 07/08/1907/12/2020 micro album in/cr eatin ine, mass ratio , urine creatinine, random urine 108 mg/dL 20-275 normal Not Available [employer] [facility] [address] [place], [address], 07/12/2020 23:20:41 07/08/1907/12/2020 micro album in/cr eatin ine, mass ratio , urine albumin, urine 0.4 mg/dL see note: normal Refer ence Range : Refer ence Range Not estab lishe d Not Available [employer] [address] [place], [address], 07/12/2020 23:20:41 07/08/1907/12/2020 micro album in/cr eatin ine, mass ratio , urine albumin/crea tinine ratio, random urine 4 mcg/m g_cre at <30 normal The ADA defin es abnor malit ies in album in excre tion as follo ws: Categ ory Resul t (mcg/ mg creat inine ) Delores l <30 Micro album inuri a 30-29 9 Clini loren album inuri a > OR = 300 The ADA recom mends that at least two of three speci mens colle cted withi n a 3-6 month perio d be abnor mal befor e consi watson g a patie nt to be withi n a diagn ostic categ ory. Not Available [address], [address], 07/12/2020 23:20:41 07/08/19 21 07/12/2020 hepat itis panel (A+B+ C), acute , serum hepatitis A IgM NON-RE ACTIVE non-re active normal For addit ional infor sheyla pérez e refer to http: //[facility] yuli guardado.jose robledoia gnost ics.c om/fa q/FAQ (This link is being provi ded for salo wiley/ keenan langeo ses only. ) Not Available [address], [address], 07/12/2020 23:20:42 07/08/19 21 07/12/2020 hepat itis panel (A+B+ C), acute , serum hepatitis B surface antigen NON-RE ACTIVE non-re active normal Not Available [address], [address], 07/12/2020 23:20:42 07/08/19 21 07/12/2020 hepat itis panel (A+B+ C), acute , serum hepatitis B core antibody (IgM) NON-RE ACTIVE non-re active normal Not Available [address], [address], 07/12/2020 23:20:42 07/08/19 21 07/12/2020 hepat itis panel (A+B+ C), acute , serum hepatitis C antibody NON-RE ACTIVE non-re active normal Not Available [address], [address], 07/12/2020 23:20:42 07/08/19 21 07/12/2020 hepat itis panel (A+B+ C), acute , serum index 0.04 <1.00 normal HCV antib lucille was non-r eacti ve. There is no labor atory evide nce of HCV infec tion. In most cases , no furth er actio n is requi red. Howev er, if recen t HCV expos ure is suspe cted, a test for HCV RNA (test code 02800 ) is sugge sted. For addit ional infor matio n pleas e refer to http: //[facility] n[facility]isesque stdia gnost ics.c om/fa q/FAQ 22v1 (This link is being provi ded for infor matio nal/ educa karina l purpo ses only. ) Not Available [facility] [employer] [address], [address], 07/12/2020 23:20:42 07/08/19 21 07/12/2020 HIV 1+2 Ab + HIV1 p24 Ag, quant itati ve immun oassa y, serum HIV Ag/Ab, 4TH gen NON-RE ACTIVE non-re active normal HIV-1 antig en and HIV-1 /HIV- 2 antib odies were not detec tomás. There is no labor atory evide nce of HIV infec tion. PLEAS E NOTE: This infor matio n has been discl osed to you from recor ds whose confi denti ality may be prote cted by state law. If your state requi res such prote ction , then the state law prohi bits you from holley cavazos any furth er discl osure of the infor matio n witho ut the speci fic writt en conse nt of the perso n to whom it perta ins, or as other kaur permi tted by law. A gener al autho rizat ion for the relea se of medic al or other infor matio n is NOT suffi cient for this purpo se. For addit ional infor matio n pleas e refer to http: //[facility] n[facility]ney stdia gnost ics.c om/fa q/FAQ 106 (This link is being provi ded for infor matio nal/ educa karina l purpo ses only. ) The perfo rmanc e of this assay has not been clini bettye valid ated in patie nts less than 2 years old. Not Available [address], [address], 07/12/2020 23:20:42 07/08/19 21 07/12/2020 magne sium, serum or plasm a magnesium 1.9 mg/dL 1.5-2. 5 normal Not Available [address], [address], 07/12/2020 23:20:43 07/08/19 21 07/12/2020 BMP, serum or plasm a glucose 89 mg/dL 65-139 normal Non-f astin g refer ence inter ava Not Available [address], [address], 07/12/2020 23:20:43 07/08/19 21 07/12/2020 BMP, serum or plasm a urea nitrogen (BUN) 13 mg/dL 7-25 normal Not Available [address], [address], 07/12/2020 23:20:43 07/08/19 21 07/12/2020 BMP, serum or plasm a creatinine 0.81 mg/dL 0.50-1 .10 normal Not Available [facility] [address], [address], 07/12/2020 23:20:43 07/08/19 21 07/12/2020 BMP, serum or plasm a eGFR non-afr. [place] 105 mL/mi n/1.7 3m2 > or = 60 normal Not Available [facility] [address], [address], 07/12/2020 23:20:43 07/08/19 21 07/12/2020 BMP, serum or plasm a eGFR 121 mL/mi n/1.7 3m2 > or = 60 normal Not Available [facility] - [address], [address], 07/12/2020 23:20:43 07/08/19 21 07/12/2020 BMP, serum or plasm a BUN/creatini ne ratio NOT APPLIC ABLE (calc ) 6-22 Not Available [facility] [address], [address], 07/12/2020 23:20:43 07/08/19 21 07/12/2020 BMP, serum or plasm a sodium 136 mmol/ L 135-14 6 normal Not Available [facility] [address], [address], 07/12/2020 23:20:43 07/08/19 21 07/12/2020 BMP, serum or plasm a potassium 4.2 mmol/ L 3.5-5. 3 normal Not Available [facility] [address], [address], 07/12/2020 23:20:43 07/08/19 21 07/12/2020 BMP, serum or plasm a chloride 105 mmol/ L 98-110 normal Not Available [address], [address], 07/12/2020 23:20:43 07/08/19 21 07/12/2020 BMP, serum or plasm a carbon dioxide 28 mmol/ L 20-32 normal Not Available [address], [address], 07/12/2020 23:20:43 07/08/19 21 07/12/2020 BMP, serum or plasm a calcium 9.3 mg/dL 8.6-10 .2 normal Not Available [address], [address], 07/12/2020 23:20:43 07/08/19 21 07/12/2020 hsv (1+2) igm Ab, quant , serum , refle x titer hsv 1 IgM screen NEGATI VE normal Not Available [facility] [address], [address], 07/12/2020 23:20:44 07/08/19 21 07/12/2020 hsv (1+2) igm Ab, quant , serum , refle x titer hsv 2 IgM screen NEGATI VE normal REFER ENCE RANGE : NEGAT MAT The IFA proce dure for measu ring IgM antib odies to HSV 1 and HSV 2 detec ts both type- commo n and type- speci fic HSV antib odies . Thus, IgM react ivity to both HSV 1 and HSV 2 may repre sent cross react mat HSV antib odies rathe r than expos ure to both HSV 1 and HSV 2. This test was devel oped and its betsy tical perfo rmanc e anne cteri stics have been deter mined by [facility] Infec tious Disea se. It has not been clear ed or appro norm by FDA. This assay has been valid ated pursu ant to the CLIA regul ation s and is used for clini loren purpo ses. Not Available [facility] [address], [address], 07/12/2020 23:20:44 09/22/19 23 09/23/2022 IRON, TIBC AND JESUS TIN PANEL iron, total 132 mcg/d L 40-190 normal Not Available [facility] [address], [address], 09/23/2022 15:33:32 09/22/19 23 09/23/2022 IRON, TIBC AND JESUS TIN PANEL iron binding capacity 361 mcg/d L_(ca lc) 250-45 0 normal Not Available [facility] [address], [address], 09/23/2022 15:33:32 09/22/19 23 09/23/2022 IRON, TIBC AND JESUS TIN PANEL % saturation 37 %_(ca lc) 16-45 normal Not Available [facility] [address], [address], 09/23/2022 15:33:32 09/22/19 23 09/23/2022 IRON, TIBC AND JESSU TIN PANEL ferritin 25 NG/mL 16-154 normal Not Available [address], [address], 09/23/2022 15:33:32 09/22/19 23 09/23/2022 MAGNE SIUM magnesium 1.9 mg/dL 1.5-2. 5 normal Not Available [address], [address], 09/23/2022 15:33:34 09/22/19 23 09/23/2022 COMPR EHENS MAT METAB OLIC PANEL glucose 90 mg/dL 65-139 normal Non-f astin g refer ence inter ava Not Available [address], [address], 09/23/2022 15:33:35 09/22/19 23 09/23/2022 COMPR EHENS MAT METAB OLIC PANEL urea nitrogen (BUN) 12 mg/dL 7-25 normal Not Available [address], [address], 09/23/2022 15:33:35 09/22/19 23 09/23/2022 COMPR EHENS MAT METAB OLIC PANEL creatinine 0.80 mg/dL 0.50-0 .96 normal Not Available [address], [address], 09/23/2022 15:33:35 09/22/19 23 09/23/2022 COMPR EHENS MAT METAB OLIC PANEL eGFR 107 mL/mi n/1.7 3m2 > or = 60 normal Not Available [address], [address], 09/23/2022 15:33:35 09/22/19 23 09/23/2022 COMPR EHENS MAT METAB OLIC PANEL BUN/creatini ne ratio SEE NOTE: (calc ) 6-22 Not Repor tomás: BUN and Creat inine are withi n refer ence range . Not Available [address], [address], 09/23/2022 15:33:35 09/22/19 23 09/23/2022 COMPR EHENS MAT METAB OLIC PANEL sodium 139 mmol/ L 135-14 6 normal Not Available [address], [address], 09/23/2022 15:33:35 09/22/19 23 09/23/2022 COMPR EHENS MAT METAB OLIC PANEL potassium 4.1 mmol/ L 3.5-5. 3 normal Not Available [address], [address], 09/23/2022 15:33:35 09/22/19 23 09/23/2022 COMPR EHENS MAT METAB OLIC PANEL chloride 103 mmol/ L 98-110 normal Not Available [address], [address], 09/23/2022 15:33:35 09/22/19 23 09/23/2022 COMPR EHENS MAT METAB OLIC PANEL carbon dioxide 26 mmol/ L 20-32 normal Not Available [address], [address], 09/23/2022 15:33:35 09/22/19 23 09/23/2022 COMPR EHENS MTA METAB OLIC PANEL calcium 9.2 mg/dL 8.6-10 .2 normal Not Available [address], [address], 09/23/2022 15:33:35 09/22/19 23 09/23/2022 COMPR EHENS MAT METAB OLIC PANEL protein, total 6.9 g/dL 6.1-8. 1 normal Not Available [address] [address] [place], [address], 09/23/2022 15:33:35 09/22/19 23 09/23/2022 COMPR EHENS MAT METAB OLIC PANEL albumin 4.4 g/dL 3.6-5. 1 normal Not Available [address], [address], 09/23/2022 15:33:35 09/22/19 23 09/23/2022 COMPR EHENS MAT METAB OLIC PANEL globulin 2.5 g/dL_ (calc ) 1.9-3. 7 normal Not Available [address], [address], 09/23/2022 15:33:35 09/22/19 23 09/23/2022 COMPR EHENS MAT METAB OLIC PANEL albumin/glob ulin ratio 1.8 (calc ) 1.0-2. 5 normal Not Available [address] [address] [place], [address], 09/23/2022 15:33:35 09/22/19 23 09/23/2022 COMPR EHENS MAT METAB OLIC PANEL bilirubin, total 0.4 mg/dL 0.2-1. 2 normal Not Available [address], [address], 09/23/2022 15:33:35 09/22/19 23 09/23/2022 COMPR EHENS MAT METAB OLIC PANEL alkaline phosphatase 60 U/L 31-125 normal Not Available [address] [address] [place], [address], 09/23/2022 15:33:35 09/22/19 23 09/23/2022 COMPR EHENS MAT METAB OLIC PANEL AST 14 U/L 10-30 normal Not Available [address], [address], 09/23/2022 15:33:35 09/22/19 23 09/23/2022 COMPR EHENS MAT METAB OLIC PANEL ALT 11 U/L 6-29 normal Not Available [address], [address], 09/23/2022 15:33:35 09/22/19 23 09/23/2022 RETIC ULOCY TE COUNT reticulocyte count, automated 1.1 % normal Not Available [address], [address], 09/23/2022 15:33:35 09/22/19 23 09/23/2022 RETIC ULOCY TE COUNT reticulocyte , absolute 50312 cells /uL [address]990- [address] normal Not Available [address], [address], 09/23/2022 15:33:35 09/22/19 23 09/23/2022 CBC (INCL UDES DIFF/ PLT) white blood cell count 6.3 thous and/u L 3.8-10 .8 normal Not Available [address], [address], 09/23/2022 15:33:36 09/22/19 23 09/23/2022 CBC (INCL UDES DIFF/ PLT) red blood cell count 4.12 stephie on/uL 3.80-5 .10 normal Not Available [address], [address], 09/23/2022 15:33:36 09/22/19 23 09/23/2022 CBC (INCL UDES DIFF/ PLT) hemoglobin 12.6 g/dL 11.7-1 5.5 normal Not Available [address], [address], 09/23/2022 15:33:36 09/22/19 23 09/23/2022 CBC (INCL UDES DIFF/ PLT) hematocrit 38.7 % 35.0-4 5.0 normal Not Available [address], [address], 09/23/2022 15:33:36 09/22/19 23 09/23/2022 CBC (INCL UDES DIFF/ PLT) MCV 93.9 fL 80.0-1 00.0 normal Not Available [address], [address], 09/23/2022 15:33:36 09/22/19 23 09/23/2022 CBC (INCL UDES DIFF/ PLT) MCH 30.6 pg 27.0-3 3.0 normal Not Available [address], [address], 09/23/2022 15:33:36 09/22/19 23 09/23/2022 CBC (INCL UDES DIFF/ PLT) MCHC 32.6 g/dL 32.0-3 6.0 normal Not Available [address], [address], 09/23/2022 15:33:36 09/22/19 23 09/23/2022 CBC (INCL UDES DIFF/ PLT) RDW 12.8 % 11.0-1 5.0 normal Not Available [address], [address], 09/23/2022 15:33:36 09/22/19 23 09/23/2022 CBC (INCL UDES DIFF/ PLT) platelet count 263 thous and/u L 140-40 0 normal Not Available [address], [address], 09/23/2022 15:33:36 09/22/19 23 09/23/2022 CBC (INCL UDES DIFF/ PLT) MPV 11.5 fL 7.5-12 .5 normal Not Available [address], [address], 09/23/2022 15:33:36 09/22/19 23 09/23/2022 CBC (INCL UDES DIFF/ PLT) absolute neutrophils 3163 cells /uL 1500-7 800 normal Not Available [address], [address], 09/23/2022 15:33:36 09/22/19 23 09/23/2022 CBC (INCL UDES DIFF/ PLT) absolute lymphocytes 2230 cells /uL 850-39 00 normal Not Available [address], [address], 09/23/2022 15:33:36 09/22/19 23 09/23/2022 CBC (INCL UDES DIFF/ PLT) absolute monocytes 567 cells /uL 200-95 0 normal Not Available [address], [address], 09/23/2022 15:33:36 09/22/19 23 09/23/2022 CBC (INCL UDES DIFF/ PLT) absolute eosinophils 302 cells /uL 15-500 normal Not Available [address], [address], 09/23/2022 15:33:36 09/22/19 23 09/23/2022 CBC (INCL UDES DIFF/ PLT) absolute basophils 38 cells /uL 0-200 normal Not Available [address], [address], 09/23/2022 15:33:36 09/22/19 23 09/23/2022 CBC (INCL UDES DIFF/ PLT) neutrophils 50.2 % normal Not Available [address], [address], 09/23/2022 15:33:36 09/22/19 23 09/23/2022 CBC (INCL UDES DIFF/ PLT) lymphocytes 35.4 % normal Not Available [address], [address], 09/23/2022 15:33:36 09/22/19 23 09/23/2022 CBC (INCL UDES DIFF/ PLT) monocytes 9.0 % normal Not Available [facility] [address], [address], 09/23/2022 15:33:36 09/22/19 23 09/23/2022 CBC (INCL UDES DIFF/ PLT) eosinophils 4.8 % normal Not Available [facility] [address], [address], 09/23/2022 15:33:36 09/22/19 23 09/23/2022 CBC (INCL UDES DIFF/ PLT) basophils 0.6 % normal Not Available [address], [address], 09/23/2022 15:33:36 09/22/19 23 09/23/2022 T4, FREE T4, free 1.0 NG/dL 0.8-1. 8 normal Not Available [address], [address], 09/23/2022 15:33:37 09/22/19 23 09/23/2022 TSH TSH 4.18 mIU/L normal Refer ence Range > or = 20 Years 0.40- 4.50 Pregn nelly Range s First trime ster 0.26- 2.66 Secon d trime ster 0.55- 2.73 Third trime ster 0.43- 2.91 Not Available [address], [address], 09/23/2022 15:33:38 09/22/19 23 09/23/2022 T3, FREE T3, free 3.7 pg/mL 2.3-4. 2 normal Not Available [facility] [address], [address], 09/23/2022 15:33:39 09/22/19 23 09/23/2022 HEMOG LOBIN A1C hemoglobin A1C 4.9 %_of_ total _HGB <5.7 normal For the purpo se of warren wu for the prese nce of diabe clare: <5.7% Consi stent with the absen ce of diabe clare 5.7-6 .4% Consi stent with incre ased risk for diabe clare (pred iabet es) > or =6.5% Consi stent with diabe clare This assay resul t is consi stent with a decre ased risk of diabe clare. Curre ntly, no conse nsus exist s zainab laird use of hemog lobin A1c for diagn osis of diabe clare in child kimberlyn. Accor ding to Ameri can Diabe clare Assoc iatio n (ADA) guide lines , hemog lobin A1c <7.0% repre sents optim al contr ol in non-p regna nt diabe tic patie nts. Diffe rent metri cs may apply to speci fic patie nt popul ation s. Stand ards of Medic al Care in Diabe clare(A DA). Not Available [facility] [address] [address] [place], [address], 09/23/2022 15:33:40 10/13/19 24 10/17/2023 LIPID PANEL , STAND NILAM cholesterol, total 165 mg/dL <200 normal Not Available [facility] [address] [address] [place], [address], 10/17/2023 06:26:03 10/13/1910/17/2023 LIPID PANEL , STAND NILAM HDL cholesterol 75 mg/dL > or = 50 normal Not Available [facility] [address] [address] [place], [address], 10/17/2023 06:26:03 10/13/1910/17/2023 LIPID PANEL , STAND NILAM triglyceride s 81 mg/dL <150 normal Not Available [facility] [address] [place], [address], 10/17/2023 06:26:03 08/26/20 24 10/17/2023 LIPID PANEL , STAND NILAM LDL-choleste rol 74 mg/dL _(loren c) normal Refer ence range : <100 Lisbet able range <100 mg/dL for prima ry preve ntion ; <70 mg/dL for patie nts with CHD or diabe tic patie nts with > or = 2 CHD risk facto rs. LDL-C is now calcu lated using the Tiffany n-Hop kins florenciau alvaro n, which is a valid ated novel metho d provi ding león r accur acy than the Fried raul equat ion in the estim ation of LDL-C . Tiffany guardado SS et al. DIANNA. 2013; 310(1 9): 2061- 2068 (http ://ed ucati on.drchrono. TMAT/f aq/FA Q164) Not Available [facility] [address] [address] [place], [address], 10/17/2023 06:26:03 10/13/19 24 10/17/2023 LIPID PANEL , STAND NILAM chol/HDLC ratio 2.2 (calc ) <5.0 normal Not Available [facility] [address] [place], [address], 10/17/2023 06:26:03 10/13/19 24 10/17/2023 LIPID PANEL , STAND NILAM non HDL cholesterol 90 mg/dL _(loren c) <130 normal For patie nts with diabe clare plus 1 major ASCVD risk facto r, treat ing to a non-H DL-C goal of <100 mg/dL (LDL- C of <70 mg/dL ) is consi dered a thera peuti c optio n. Not Available [facility] [address] [place], [address], 10/17/2023 06:26:03 10/13/19 24 10/17/2023 HEPAT ITIS PANEL , ACUTE W/REF DINORA TO CONFI RMATI ON hepatitis A IgM NON-RE ACTIVE non-re active normal For addit ional infor jackie guardado pleas e refer to http: //[facility] guardado.que stdia gnost ics.c om/fa q/FAQ 202 (This link is being provi ded for infor matio nal/ educa karina l purpo ses only. ) Not Available [address], [address], 10/17/2023 06:26:04 10/13/19 24 10/17/2023 HEPAT ITIS PANEL , ACUTE W/REF DINORA TO CONFI RMATI ON hepatitis B surface antigen NON-RE ACTIVE non-re active normal For addit ional sheyla canada e refer to http: //[facility] yuli guardado.que stdia gnost ics.c om/fa q/FAQ 202 (This link is being provi ded for infor matio nal/ educa karina l purpo ses only. ) Not Available [facility] [address], [address], 10/17/2023 06:26:04 10/13/19 24 10/17/2023 HEPAT ITIS PANEL , ACUTE W/REF DINORA TO CONFI RMATI ON hepatitis B core antibody (IgM) NON-RE ACTIVE non-re active normal For addit ional sheyla canada e refer to http: //[facility] yuli guardado.que stdia gnost ics.c om/fa q/FAQ 202 (This link is being provi ded for infor matio nal/ educa karina l purpo ses only. ) Not Available [address], [address], 10/17/2023 06:26:04 10/13/19 24 10/17/2023 HEPAT ITIS PANEL , ACUTE W/REF DINORA TO CONFI RMATI ON hepatitis C antibody NON-RE ACTIVE non-re active normal HCV antib lucille was non-r eacti ve. There is no labor atory evide nce of HCV infec tion. In most cases , no furth er actio n is requi red. Howev er, if recen t HCV expos ure is suspe cted, a test for HCV RNA (test code 65507 ) is sugge sted. For addit ional infor matio n pleas e refer to http: //[facility].que stdia gnost ics.c om/fa q/FAQ 22v1 (This link is being provi ded for infor matio nal/ educa karina l purpo ses only. ) Not Available [facility] [address] [place], [address], 10/17/2023 06:26:04 10/13/19 24 10/17/2023 HIV 1/2 ANTIG EN/AN TIBOD Y,FOU RTH GENER ATION W/RFL HIV Ag/Ab, 4TH gen NON-RE ACTIVE non-re active normal HIV-1 antig en and HIV-1 /HIV- 2 antib odies were not detec tomás. There is no labor atory evide nce of HIV infec tion. PLEAS E NOTE: This infor matio n has been discl osed to you from recor ds whose confi denti ality may be prote cted by state law. If your state requi res such prote ction , then the state law prohi bits you from holley toscano er discl osure of the infor matio n witho ut the speci fic writt en conse nt of the perso n to whom it perta ins, or as other kaur permi tted by law. A gener al autho rizat ion for the relea se of medic al or other infor matio n is NOT suffi cient for this purpo se. For addit ional infor matio n pleas e refer to http: //[facility] nMoisesque stdia gnost ics.c om/fa q/FAQ 106 (This link is being provi ded for infor matio nal/ educa karina l purpo ses only. ) The perfo rmanc e of this assay has not been clini bettye valid ated in patie nts less than 2 years old. Not Available [facility] [address] [place], [address], 10/17/2023 06:26:04 10/13/19 24 10/17/2023 TSH+F REE T4 TSH 2.46 mIU/L normal Refer ence Range > or = 20 Years 0.40- 4.50 Pregn nelly Range s First trime ster 0.26- 2.66 Secon d trime ster 0.55- 2.73 Third trime ster 0.43- 2.91 Not Available [address], [address], 10/17/2023 06:26:05 10/13/19 24 10/17/2023 TSH+F REE T4 T4, free 1.1 NG/dL 0.8-1. 8 normal Not Available [address], [address], 10/17/2023 06:26:05 10/13/19 24 10/17/2023 MAGNE SIUM magnesium 1.8 mg/dL 1.5-2. 5 normal Not Available [address], [address], 10/17/2023 06:26:05 10/13/19 24 10/17/2023 COMPR EHENS MAT METAB OLIC PANEL glucose 92 mg/dL 65-99 normal Fasti ng refer ence inter ava Not Available [address], [address], 10/17/2023 06:26:05 10/13/19 24 10/17/2023 COMPR EHENS MAT METAB OLIC PANEL urea nitrogen (BUN) 9 mg/dL 7-25 normal Not Available [address], [address], 10/17/2023 06:26:05 10/13/19 24 10/17/2023 COMPR EHENS MAT METAB OLIC PANEL creatinine 0.67 mg/dL 0.50-0 .96 normal Not Available [address], [address], 10/17/2023 06:26:05 10/13/19 24 10/17/2023 COMPR EHENS MAT METAB OLIC PANEL eGFR 126 mL/mi n/1.7 3m2 > or = 60 normal Not Available [address], [address], 10/17/2023 06:26:05 10/13/19 24 10/17/2023 COMPR EHENS MAT METAB OLIC PANEL BUN/creatini ne ratio SEE NOTE: (calc ) 6-22 Not Repor tomás: BUN and Creat inine are withi n refer ence range . Not Available [address], [address], 10/17/2023 06:26:05 10/13/19 24 10/17/2023 COMPR EHENS MAT METAB OLIC PANEL sodium 134 mmol/ L 135-14 6 low Not Available [address], [address], 10/17/2023 06:26:05 10/13/19 24 10/17/2023 COMPR EHENS MAT METAB OLIC PANEL potassium 3.9 mmol/ L 3.5-5. 3 normal Not Available [address], [address], 10/17/2023 06:26:05 10/13/19 24 10/17/2023 COMPR EHENS MAT METAB OLIC PANEL chloride 104 mmol/ L 98-110 normal Not Available [address], [address], 10/17/2023 06:26:05 10/13/19 24 10/17/2023 COMPR EHENS MAT METAB OLIC PANEL carbon dioxide 25 mmol/ L 20-32 normal Not Available [address], [address], 10/17/2023 06:26:05 10/13/19 24 10/17/2023 COMPR EHENS MAT METAB OLIC PANEL calcium 9.1 mg/dL 8.6-10 .2 normal Not Available [address], [address], 10/17/2023 06:26:05 10/13/19 24 10/17/2023 COMPR EHENS MAT METAB OLIC PANEL protein, total 6.7 g/dL 6.1-8. 1 normal Not Available [address], [address], 10/17/2023 06:26:05 10/13/19 24 10/17/2023 COMPR EHENS MAT METAB OLIC PANEL albumin 4.4 g/dL 3.6-5. 1 normal Not Available [address], [address], 10/17/2023 06:26:05 10/13/19 24 10/17/2023 COMPR EHENS MAT METAB OLIC PANEL globulin 2.3 g/dL_ (calc ) 1.9-3. 7 normal Not Available [address], [address], 10/17/2023 06:26:05 10/13/19 24 10/17/2023 COMPR EHENS MTA METAB OLIC PANEL albumin/glob ulin ratio 1.9 (calc ) 1.0-2. 5 normal Not Available [facility] [address], [address], 10/17/2023 06:26:05 10/13/19 24 10/17/2023 COMPR EHENS MAT METAB OLIC PANEL bilirubin, total 0.6 mg/dL 0.2-1. 2 normal Not Available [address], [address], 10/17/2023 06:26:05 10/13/19 24 10/17/2023 COMPR EHENS MAT METAB OLIC PANEL alkaline phosphatase 56 U/L 31-125 normal Not Available [address] [address] [place], [address], 10/17/2023 06:26:05 10/13/19 24 10/17/2023 COMPR EHENS MAT METAB OLIC PANEL AST 14 U/L 10-30 normal Not Available [address] [address] [place], [address], 10/17/2023 06:26:05 10/13/19 24 10/17/2023 COMPR EHENS MAT METAB OLIC PANEL ALT 11 U/L 6-29 normal Not Available [address], [address], 10/17/2023 06:26:05 10/13/19 24 10/17/2023 CBC (INCL UDES DIFF/ PLT) white blood cell count 4.4 thous and/u L 3.8-10 .8 normal Not Available [address], [address], 10/17/2023 06:26:06 10/13/19 24 10/17/2023 CBC (INCL UDES DIFF/ PLT) red blood cell count 3.99 stephie on/uL 3.80-5 .10 normal Not Available [address], [address], 10/17/2023 06:26:06 10/13/19 24 10/17/2023 CBC (INCL UDES DIFF/ PLT) hemoglobin 11.7 g/dL 11.7-1 5.5 normal Not Available [address], [address], 10/17/2023 06:26:06 10/13/19 24 10/17/2023 CBC (INCL UDES DIFF/ PLT) hematocrit 37.0 % 35.0-4 5.0 normal Not Available [address] [place], [address], 10/17/2023 06:26:06 10/13/19 24 10/17/2023 CBC (INCL UDES DIFF/ PLT) MCV 92.7 fL 80.0-1 00.0 normal Not Available [address], [address], 10/17/2023 06:26:06 10/13/19 24 10/17/2023 CBC (INCL UDES DIFF/ PLT) MCH 29.3 pg 27.0-3 3.0 normal Not Available [address], [address], 10/17/2023 06:26:06 10/13/19 24 10/17/2023 CBC (INCL UDES DIFF/ PLT) MCHC 31.6 g/dL 32.0-3 6.0 low Not Available [address], [address], 10/17/2023 06:26:06 10/13/19 24 10/17/2023 CBC (INCL UDES DIFF/ PLT) RDW 12.4 % 11.0-1 5.0 normal Not Available [address], [address], 10/17/2023 06:26:06 10/13/19 24 10/17/2023 CBC (INCL UDES DIFF/ PLT) platelet count 228 thous and/u L 140-40 0 normal Not Available [address], [address], 10/17/2023 06:26:06 10/13/19 24 10/17/2023 CBC (INCL UDES DIFF/ PLT) MPV 11.9 fL 7.5-12 .5 normal Not Available [address], [address], 10/17/2023 06:26:06 10/13/19 24 10/17/2023 CBC (INCL UDES DIFF/ PLT) absolute neutrophils 2614 cells /uL 1500-7 800 normal Not Available [address], [address], 10/17/2023 06:26:06 10/13/19 24 10/17/2023 CBC (INCL UDES DIFF/ PLT) absolute lymphocytes 1179 cells /uL 850-39 00 normal Not Available [address], [address], 10/17/2023 06:26:06 10/13/19 24 10/17/2023 CBC (INCL UDES DIFF/ PLT) absolute monocytes 418 cells /uL 200-95 0 normal Not Available [address], [address], 10/17/2023 06:26:06 10/13/19 24 10/17/2023 CBC (INCL UDES DIFF/ PLT) absolute eosinophils 158 cells /uL 15-500 normal Not Available [address], [address], 10/17/2023 06:26:06 10/13/19 24 10/17/2023 CBC (INCL UDES DIFF/ PLT) absolute basophils 31 cells /uL 0-200 normal Not Available [address], [address], 10/17/2023 06:26:06 10/13/19 24 10/17/2023 CBC (INCL UDES DIFF/ PLT) neutrophils 59.4 % normal Not Available [address], [address], 10/17/2023 06:26:06 10/13/19 24 10/17/2023 CBC (INCL UDES DIFF/ PLT) lymphocytes 26.8 % normal Not Available [address], [address], 10/17/2023 06:26:06 10/13/19 24 10/17/2023 CBC (INCL UDES DIFF/ PLT) monocytes 9.5 % normal Not Available [facility] [address] [address] [place], [address], 10/17/2023 06:26:06 10/13/19 24 10/17/2023 CBC (INCL UDES DIFF/ PLT) eosinophils 3.6 % normal Not Available [facility] [address] [address] [place], [address], 10/17/2023 06:26:06 10/13/19 24 10/17/2023 CBC (INCL UDES DIFF/ PLT) basophils 0.7 % normal Not Available [facility] [address] [address] [place], [address], 10/17/2023 06:26:06 10/13/19 24 10/17/2023 VITAM IN B12 (REFL ) vitamin B12 320 pg/mL 200-11 00 normal Pleas e Note: Altho ugh the refer ence range for vitam in B12 is 200-1 100 pg/mL , it has been repor tomás that betwe en 5 and 10% of patie nts with value s betwe en 200 and 400 pg/mL may exper ience neuro psych iatri c and hemat ologi c abnor malit ies due to occul t B12 defic iency ; less than 1% of patie nts with value s above 400 pg/mL will have sympt oms. Not Available [facility] [address] [address] [place], [address], 10/17/2023 06:26:06 10/13/19 24 10/17/2023 T3, FREE T3, free 3.7 pg/mL 2.3-4. 2 normal Not Available [facility] [address] [address] [place], [address], 10/17/2023 06:26:07 10/13/19 24 10/17/2023 VITAM IN B6, PLASM A vitamin B6, plasma 7.0 NG/mL 2.1-21 .7 (Note ) Vitam in suppl ement ation withi n 24 hours prior to blood draw may affec t the accur acy of [facility] ts. This test was devel oped and its betsy tical perfo rmanc e anne cteri stics have been deter mined by [employer]. It has not been clear ed or appro norm by the FDA. This assay has been valid ated pursu ant to the CLIA regul ation s and is used for clini loren purpo ses. med fusio n [address] [facility] [address] [facility] [id number] [phone] Antonia Stokes MD, PhD Not Available [employer] [facility] [address] [place], [address], 10/17/2023 06:26:07 10/13/19 24 10/17/2023 VITAM IN B1 (THIA MINE) , BLOOD , LC/MS /MS vitamin B1 (thiamine), blood, lc/MS/MS 68 nmol/ L 78-185 low (Note ) Vitam in suppl ement ation withi n 24 hours prior to blood draw may affec t the accur acy of the [facility]. This test was devel oped and its betsy tical perfo rmanc e anne cteri stics have been deter mined by [employer]. It has not been clear ed or appro norm by FDA. This assay has been valid ated pursu ant to the CLIA regul ation s and is used for clini loren purpo ses. med fusio n [address] [facility] [address] [facility] [id number] [phone] Antonia Stokes MD, PhD Not Available [employer] [facility] [address] [place], [address], 10/17/2023 06:26:07 09/19/19 24 09/22/2023 zulema salvador am No observ ation record ed. [facility], [address], [place], [address], 09/22/2023 10:31:20 09/19/19 24 09/19/2023 elect owen salvador am No observ ation record ed. [email or web address], [facility] [address], [place], [address], 09/22/2023 10:31:31 Result Notes None recorded. 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 Procedures Surgical History Date Name Laterality Status Provider Name and Address Organization Details Recorded Time Hernia Repair completed Pooja Monroe [facility] 04/17/2020 14:53:18 Imaging Results None recorded. Procedure Notes None recorded. Medical Equipment None Reported. Allergies No known drug allergies Medications Name Sig Start Date Stop Date Status Note LastModified by Organization Details LastModified Time carvedilo l 6.25 mg tablet TAKE 1 TABLET BY MOUTH TWICE DAILY 09/18 completed -- on 3.125 mg q12 Not Available Not Available Not Available trazodone 50 mg tablet TAKE 1 TABLET BY MOUTH EVERY DAY NEEDED active Not Available Not Available No t Available hydrocodo ne 5 mg-acetam inophen 325 mg tablet TAKE 1 TABLET BY MOUTH EVERY 6 HOURS NEEDED FOR PAIN 09/18 completed Not Available Not Available Not Available metronida zole 0.75 % (37.5 mg/5 gram) vaginal gel INSERT 1 APPLICAT ORFUL VAGINALL Y EVERY NIGHT AT BEDTIME FOR 5 DAYS 09/18 completed Not Available Not Available Not Available dextroamp hetamine- amphetami ne 10 mg tablet TAKE 1 TABLET BY MOUTH 4 TIMES A DAY. INSURANC E ONLY PAYS FOR 90. OTHER 30 WILL BE VOID 09/18 completed -- on 20 mg Not Available Not Available Not Available thiamine HCl (vitamin B1) 100 mg tablet Take 1 tablet every day by oral route in the morning. 2023 active Not Available Not Available Not Avai lable hydroxyzi ne pamoate 50 mg capsule TAKE ONE CAPSULE BY MOUTH EVERY 8 HOURS NEEDED FOR ANXIETY 09/18 completed Not Available Not Available Not Available hydroxyzi ne HCl 50 mg tablet TAKE 1 TABLET BY MOUTH TWICE DAILY NEEDED active Not Available Not Available No t Available spironola ctone 25 mg tablet active Not Available Not Available No t Available carvedilo l 3.125 mg tablet active Not Available Not Available No t Available amoxicill in 875 mg tablet TAKE 1 TABLET EVERY 12 HOURS DAILY 09/18 completed Not Available Not Available Not Available magnesium oxide 400 mg (241.3 mg magnesium ) tablet active Not Available Not Available Not Available dextroamp hetamine- amphetami ne ER 20 mg 24hr capsule,e xtend release TAKE 1 CAPSULE BY MOUTH EVERY DAY IN THE MORNING 09/18 completed -- no longer on it Not Available Not Available Not Available lorazepam 2 mg tablet TAKE 1 TABLET BY MOUTH TWICE DAILY NEEDED 09/18 completed -- pt reported she no longer taking Not Available Not Available Not Available cephalexi n 500 mg capsule TAKE 1 CAPSULE BY MOUTH EVERY 12 HOURS 09/18 completed Not Available Not Available Not Available mirtazapi ne 30 mg tablet TAKE 1 TABLET BY MOUTH AT BEDTIME active Not Available Not Available No t Available ferrous sulfate 325 mg (65 mg iron) tablet Take 1 tablet every day by oral route. active Not Available Not Available No t Available dextroamp hetamine- amphetami ne 20 mg tablet 09/18 completed -- no longer on it Not Available Not Available Not Available losartan 25 mg tablet TAKE 1/2 TABLET BY MOUTH DAILY 09/18 completed Not Available Not Available Not Available zaleplon 10 mg capsule TAKE 1 CAPSULE (10 MG) BY MOUTH DAILY AT BEDTIME NEEDED active Not Available Not Available No t Available mirtazapi ne 15 mg tablet 09/18 completed Not Available Not Available Not Available lorazepam 1 mg tablet TAKE 1 TABLET BY MOUTH TWICE A DAY NEEDED 09/18 completed -- no longer on it due to cocaine addictio n Not Available Not Available Not Available escitalop shaye 10 mg tablet TAKE 1 TABLET BY MOUTH EVERY DAY 09/18 completed -- no longer taking Not Available Not Available Not Available bupropion HCl XL 300 mg 24 hr tablet, extended release TAKE 1 TABLET BY MOUTH EVERY DAY IN THE MORNING 09/18 completed -- no longer taking Not Available Not Available Not Available bupropion HCl XL 150 mg 24 hr tablet, extended release 09/18 completed -- no longer taking Not Available Not Available Not Available ramelteon 8 mg tablet TAKE 1 TABLET BY MOUTH EVERY DAY AT BEDTIME NEEDED 09/18 completed Not Available Not Available Not Available Jardiance 10 mg tablet active Not Available Not Available Not Available Entresto 24 mg-26 mg tablet TAKE 1 TABLET BY MOUTH TWICE DAILY active Not Available Not Available No t Available Vraylar 1.5 mg capsule 09/18 completed -- no longer taking at all Not Available Not Available Not Available Vraylar 3 mg capsule 09/18 completed -- pt reported on that she is no longer on this Not Available Not Available Not Available ID NOW COVID-19 Test Kit TEST DIRECTED TODAY 09/18 completed Not Available Not Available Not Available Vitals Date Recorded Respiratory rate Body weight Body mass index (BMI) Body mass index (BMI) [Percentile] Per age and sex Body height Body temperature Heart rate Systolic And Diastolic Provider Name and Address Organization Details Last Updated DateTime 1 16 /min 52421.3 8 g 17.8 kg/m2 5 % 165.1 cm 98.4 [degF] 80 /min 117/76 mm[Hg] [facility] 1 14:54:51 Date Recorded Body height Respiratory rate Body mass index (BMI) Body mass index (BMI) [Percentile] Per age and sex Body weight Body temperature Heart rate Systolic And Diastolic Provider Name and Address Organization Details Last Updated DateTime 1 165.1 cm 16 /min 16.6 kg/m2 1 % 54479.2 4 g 98.5 [degF] 65 /min 123/73 mm[Hg] [facility] 1 15:31:13 Date Recorded Respiratory rate Body height Body mass index (BMI) Body weight Heart rate Body temperature Systolic And Diastolic Provider Name and Address Organization Details Last Updated DateTime 4 16 /min 165.1 cm 19.5 kg/m2 35840.3 1 g 97.4 /min 97.1 [degF] 110/76 mm[Hg] Sandi Lucio [facility] 12:06:46 Social History Question Answer Notes LastModified by Organizat ion Details LastModified Time Tobacco Smoking Status Never Smoker Sandi Lucio vanessa [facility] 09/19/2023 12:08:10 Do You Have An Advance Directive? No Information not available 04/17/2020 Do You Wear A Helmet When Biking? Yes Information not available 09/19/2023 Are You Blind Or Do You Have Difficulty Seeing? Yes Wears Contacts Information not available 09/19/2023 Is Blood Transfusion Acceptable In An Emergency? Yes Information not available 09/19/2023 What Is Your Level Of Caffeine Consumption? None Information not available 09/19/2023 How Much Tobacco Do You Chew? None Information not available 04/17/2020 What Type Of Formulator Do You Use? None Information not available 09/19/2023 What Is Your Code Status? Full Code Information not available 04/17/2020 In The 14 Days Before Symptom Onset, Have You Had Close Contact With A Laboratory-confir med COVID-19 While That Case Was Ill? No Information not available 04/17/2020 In The 14 Days Before Symptom Onset, Have You Had Close Contact With A Person Who Is Under Investigation For COVID-19 While That Person Was Ill? No Information not available 04/17/2020 Have You Been To An Area Known To Be High Risk For COVID-19? No Information not available 04/17/2020 Are You Deaf Or Do You Have Serious Difficulty Hearing? No Information not available 09/19/2023 What Type Of Diet Are You Following? REGULAR Information not available 04/17/2020 Which Illicit Or Recreational Drugs Have You Used? Marijuana Does Not Use Anymore Information not available 09/19/2023 Have You Processed Blood Or Body Fluids From An Ebola Virus Disease Patient Without Appropriate PPE? No Information not available 09/19/2023 Do You Reside In Or Have You Traveled To An Area Where Ebola Virus Transmission Is Active? No Information not available 09/19/2023 What Is The Highest Grade Or Level Of School You Have Completed Or The Highest Degree You Have Received? [id number] Information not available 09/19/2023 Have There Been Any Changes To Your Family Or Social Situation? No Information no t available 09/19/2023 What Is The Fluoride Status Of Your Home? Non-fluorida tomás Information not available 09/19/2023 Are There Any Guns Present In Your Home? Yes Information not available 09/19/2023 Do You Use Insect Repellent Routinely? No Information not available 09/19/2023 Marital Status Single Informatio n not available 04/17/2020 What Was The Date Of Your Most Recent Tobacco Screening? 09/19/2023 Information not available 09/19/2023 How Many Children Do You Have? 0 Information not available 09/19/2023 Do You Have Any Pets? Yes Information not available 09/19/2023 Do You Use Protection During Sex? No Information not available 09/19/2023 What Is Your Relationship Status? Single Information not available 09/19/2023 Do You Use Your Seat Belt Or Car Seat Routinely? Yes Information not available 09/19/2023 Are You Sexually Active? Yes Female Information not available 09/19/2023 Do You Have Smoke And Carbon Monoxide Detectors In Your Home? Yes Information not available 09/19/2023 Are You Passively Exposed To Smoke? No Information no t available 09/19/2023 How Much Tobacco Do You Smoke? No Information not available 04/17/2020 What Types Of Sporting Activities Do You Participate In? Softball Information not available 09/19/2023 Do You Use Sunscreen Routinely? Yes Information not available 09/19/2023 How Many Years Have You Smoked Tobacco? 0 Information not available 04/17/2020 Do You Have Difficulty Walking Or Climbing Stairs? No Information not available 09/19/2023 Sex: Unknown Functional Status Question Answer Note LastModified by Organizat ion Details LastModified Time Do you use any illicit or recreational drugs? No Information not available 09/19/2023 Do you or have you ever used any other forms of tobacco or nicotine? No Information not available 09/19/2023 What is your level of alcohol consumption? None Information not available 04/17/2020 Do you or have you ever used smokeless tobacco? Never used smokeless tobacco Information not available 04/17/2020 Are you currently employed? No Information not available 09/19/2023 Do you have transportation difficulties? No Information not available 09/19/2023 Do you have difficulty doing errands alone? No Information not available 09/19/2023 Are you able to care for yourself independently? Yes Information not available 09/19/2023 Do you have difficulty dressing, bathing, grooming, or toileting? No Information not available 09/19/2023 Do you or have you ever used e-cigarettes or vape? Current user of electronic cigarettes vapes everyday Information not available 09/19/2023 What is your exercise level? Occasional Information not available 09/19/2023 Mental Status Question Answer Note LastModified by Organizat ion Details LastModified Time Do you feel stressed (tense, restless, nervous, or anxious, or unable to sleep at night)? [id number] Information not available 09/19/2023 Do you have difficulty concentrating, remembering or making decisions? No Information no t available 09/19/2023 Family History Relationship Description Onset Age of this Age Resolved Age Notes LastModified by Organization Details LastModified Time Paternal Grandfather Diabetes mellitus [email or web address] Not available 2020 14:40:06 Paternal Grandfather Heart disease [place] in his 60's and pace alexanderder mbenfer Not available 09/19/2023 11:17:56 Paternal Grandfather Harmful pattern of use of alcohol mbenfer Not available 2023 11:18:17 Paternal Grandfather Congestive heart failure mbenfer Not available 2023 11:19:33 Father Heart disease Stent placed around 55 y/o mbenfer Not available 09/19/2023 11:17:23 Father Diabetes mellitus mbenfer Not available 2023 11:17:19 Paternal Grandmother Family history of malignant neoplasm unknow n type of cancer mbenfer Not available 09/19/2023 11:18:42 Paternal Grandmother Depressive disorder mbenfer Not available 2023 11:19:02 Maternal Grandfather Leukemia dx'd in his late 30's mbenfer Not available 09/19/2023 11:19:55 Medical History No medical history recorded. Gynecological HistoryNo gynecological history recorded. Obstetrics History GPAL:G 0 P 0 0 0 0 Past Encounters Encounter ID Performer Location Encounter Start Date Encounter Closed Date Diagnosis/Indication Diagnosis SNOMED-CT Code Diagnosis ICD10 Code Diagnosis IMO Codes Diagnosis Note [id number] Severo Fuentes MD [employer] [facility] [place] [address] [place] [phone] 04/17/2020 13:47:40 04/17/2020 15:16:35 Mixed anxiety and depressive disorder 736520802 F41.8 (controlle d well in the last 3-4 years on Bupropion and Lexapro Family his tory of diabetes mellitus 108067595 Z83.3 Body mass index less than 20 451262725 Z68.1 -- underweigh t (just came off a Toxic relationsh ip and now gaining weight again Hepatitis C screening 41 9433924 Z11.59 Active or passive immunization 760421445 Z23 -- pt agrees to get all her pediatrics vaccinatio n records for me at her next visit. [id number] Severo Fuentes MD [employer] [facility] [place] [place] [address] [place] [address] 06/15/2020 14:52:00 06/15/2020 16:02:45 Adult health examination 811212996 Z00.00 Mixed anxi ety and depressive disorder 984731914 F41.8 -- controlled well in the last 3-4 years on Lexapro -- no SI/HI, no delusions, & no hallucinat ions -- due to underweigh t status and increasing weight loss; I advised pt to stop the Bupropion -- I will refer her to Psychiatri sst Dr John Tanner for further eval & all future management Family his tory of diabetes mellitus 433258396 Z83.3 -- A1c level of 4.9 on 05/04/20 Body mass index less than 20 733932459 Z68.1 -- underwjennifer t (just came off a Toxic relationsh ip and pt reported she was gaining weight again at last visit -- pt today registered 7 # weight loss v Active or passive immunization 756142426 Z23 -- pt agrees to get all her pediatrics vaccinatio n records for me at her next visit. Hepatitis C screening 41 8434405 Z11.59 -- tested negative for Hep C on 05/04/20 Screening for malignant neoplasm of cervix 079164914 Z12.4 Iron defic iency anemia 41815182 D50.9 -- recheck labs around 09/13/20 Hypokalemia 04319452 E87 .6 -- pt just started on otc Potassium supplement -- recheck lab(s) within 7 days from 06/15/20 Venereal d isease screening 671832518 Z11.3 -- recheck lab(s) within 7 days from 06/15/20 [id number] Severo Fuentes MD [facility] [place], [place] [id number] [facility] ,[address] [phone] 09/19/2023 10:38:12 09/19/2023 13:04:41 Harmful pattern of use of cocaine 47537068 F14.10 (+ oxcodone) Chronic sy stolic heart failure 434620338 I50.22 (in ICU w/ a life vest on; EF was 15%; left [facility] on 05/27/23) -- had repeat cardiac echo at [facility] about 2 weeks ago and pt reported she was told that her heart function is now back to normal. Mixed anxi ety and depressive disorder 119623404 F41.8 -- on Mirtazapin e-- will refer pt to Psychiatri st Dr Bruce Tanner for f/u Body mass index less than 20 091958129 Z68.1 -- will advise weight gain Venereal d isease screening 048259553 Z11.3 -- recheck lab(s) within 7 days from 06/15/20 Hepatitis C screening 41 2890657 Z11.59 -- tested negative for Hep C on 05/04/20 Active or passive immunization 779150694 Z23 -- pt agrees to get all her pediatrics vaccinatio n records for me at her next visit. Screening for malignant neoplasm of cervix 483857840 Z12.4 Chronic insomnia 0449622 04 F51.04 Fatigue 93612808 R53.83 Health Concerns Section Related Observation LastModified by Organization Detai ls LastModified Time None Recorded Concern Status LastModified by Organization Details LastModified Time None Recorded Advance Directives Directive N: Payers Insurance Date Sequence Insurance Name Policy Number Policy Larkin Covered Member ID Larkin Member ID Guarantor Name 12/23/2024 1 [place] 2[place] Luli Jose Alfredo [id number] Luli Jose Alfredo 12/23/2024 1 [place] Cruz Jose Alfredo [id number] Luli Jose Alfredo 12/23/2024 1 [employer]IG[employer] [id number] Luli L Jose Alfredo [id number] Luli Jose Alfredo 12/23/2024 1 [place] 2[place] Cruz Jose Alfredo [id number] Luli Jose Alfredo Notes Date Note Type Note Provider Name and Address Organization Details Recorded Time 04/17/2020 text/html Pt comes in to get aquainted medically. She feels well and has no c/o Patient denies any jaw or neck discomfort, left arm pain/left arm discomfort, chest discomfort/pain, diaphoresis, breathing symptoms/chest tightness, indigestion sx, n/v, any angina equivalent symptoms, etc. Severo Fuentes MD [address] [facility] [address], [place], [address], [facility] 04/17/2020 15:13:54 06/15/2020 text/html Pt comes in for f/u of anemia, low potassium, anxiety/depressio n and underweight status.Pt feeling well and has no c/o or issues. Patient denies any jaw or neck discomfort, left arm pain/left arm discomfort, chest discomfort/pain, diaphoresis, breathing symptoms/chest tightness, indigestion sx, n/v, any angina equivalent symptoms, etc. Severo Fuentes MD [address] [facility] [address], [place], [address], [facility] 06/15/2020 16:04:38 09/19/2023 text/html Pt comes in for hospital f/u of CHF, cocaine abuse, fatigue (issue brought up by dad & not pt), anxiety/depressio n, and insomnia. Pt feels well and has no c/o. Pt has no new sx and no increasing sx. Patient denies any jaw or neck discomfort, left arm pain/left arm discomfort, chest discomfort/pain, diaphoresis, breathing symptoms/chest tightness, indigestion sx, n/v, any angina equivalent symptoms, etc. Severo Fuentes MD [address] [facility] [address], [place], [address], [facility] 09/19/2023 13:06:37 OBGyn Episode No OBEpisode recorded.
--- OUTSIDE RECORDS SUMMARY | 2024-12-23 20:55 | XMS_ITS | Clinical Summary ---
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
--- OUTSIDE RECORDS SUMMARY | 2024-12-23 20:55 | XMS_ITS | Clinical Summary ---
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
--- OUTSIDE RECORDS SUMMARY | 2024-12-23 20:55 | XMS_ITS | Clinical Summary ---
Author Organization [facility] Address [address] [place] [address] Care Team Providers Care Physical Security Specialist Name Role Phone Jane Peres MD Primary Care Provider [phone] Source Comments [facility],non-owned Affiliates and Associated Physician Practices is amultiple site organization consisting of ambulatory clinics and hospital sitesin [place], [place], [place] and [place]. This disclosure is being madepursuant to the Care Everywhere program and may not contain all information available regarding this patient. Last updated 17.[facility] Allergies No known active allergies Medications * Be aware that medications may not be up to date on this document. Alwaysverify current medications with the patient. escitalopram (LEXAPRO) 5 MG tablet Take 10 mg by mouth at bedtime Active vitamin D3 ([facility] VIT D 5000 HIGH-POTENCY) 5000 UNITS capsule Take 5,000 Units by mouth once daily Active buPROPion XL 24hr (WELLBUTRIN-XL) 150 MG tablet 11/12/2017 Activ e Active Problems Problem Noted Date Diagnosed Date Depression 12/19/2017 Dizziness and giddiness 12/19/2017 Shaking 12/19/2017 Nausea 12/19/2017 Umbilical hernia 01/08/2011 Social History Tobacco Use Types Packs/Day Years Used Date Smoking Tobacco: Never Smokeless Tobacco: Never Alcohol Use Standard Drinks/Week Comments No 0 (1 standard drink = 0.6 oz pur e alcohol) Comments No Sex and Gender Information Value Date Recorded Sex Assigned at Not on file 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 Gender Identity Not on file Sexual Orientation Not on file Last Filed Vital Signs Vital Sign Reading Time Taken Comments Blood Pressure 108/60 12/19/2017 1:02 PM CDT Pulse 79 05/24/2015 8:03 AM CDT Temperature 36.8 C (98.2 F) 10/23/2017 7:56 AM CDT per pcp Respiratory Rate 24 05/24/2015 8:03 AM CDT Oxygen Saturation 94% 05/24/2015 8:03 AM CDT Inhaled Oxygen Concentration - - Weight 53.2 kg (117 lb 4.6 oz) 12/19/2017 1:02 P M CDT Height 164.1 cm (5' 4.61) 12/19/2017 1:02 PM CD T Body Mass Index 19.76 12/19/2017 1:02 PM CDT Plan of Treatment Health Maintenance Due Date Last Done Comments HIV SCREENING 05/26/2015 HPV VACCINE (1 - 3-dose series) 05/26/2015 CHLAMYDIA/GONORRHEA SCREENING 2016 HEPATITIS C SCREENING 05/21/2018 DTAP/TDAP/TD VACCINES (1 - Tdap) 05/26/2019 HEPATITIS B VACCINE (1 of 3 - 19+ 3-dose series) 05/26/2019 DEPRESSION SCREENING 02/18/2024 COVID-19 VACCINE (1 - 2023-2 5 season) 2024 INFLUENZA VACCINE (#1) 2024 ZOSTER VACCINE (1 of 2) 2050 HIB VACCINE Aged Out No longer eligi ble based on patient's age to complete this topic MENINGOCOCCAL (Group B) VACC INE SHARED DECISION-MAKING Aged Out No longer eligibl e based on patient's age to complete this topic MENINGOCOCCAL GROUPS A/C/Y/W VACCINE Aged Out No longer eligible b ased on patient's age to complete this topic PNEUMOCOCCAL VACCINE Aged Out No long er eligible based on patient's age to complete this topic Insurance [employer] [facility] [employer] Advance Directives * Full Code (Latest Code Status on File) Date Activated Date Inactivated Comments 05/23/2015 9:38 PM 05/24/2015 1:56 PM Care Teams Physical Security Specialist Relationship Specialty Start Date End Date Jane Peres MD [address] [place] [id number] PCP - General Pediatrics 10/30/17
== END 2024-12-23 15:48 | disposition left against medical advice (07) ==
LOC: ANHED 15:25
PROVIDERS: Emergency Provider Physician Assistant
DX: K62.5 Hemorrhage of anus and rectum (principal); F90.9 Attention-deficit hyperactivity disorder, unspecified type; F31.9 Bipolar disorder, unspecified; F17.290 Nicotine dependence, other tobacco product, uncomplicated; Z79.899 Other long term (current) drug therapy
CPT/HCPCS: 99281

== ENCOUNTER 2025-01-06 07:53 | Emergency (ER) | payer BC, SELFPAY ==
--- NOTE | ~2025-01-06 | CT_ITS ---
CT abdomen pelvis w con Clinical History: abdominal pain-GENERALIZED X 12 HRS, N/V . Comparison: CT chest abdomen pelvis 05/23/2023 Technique: Axial images lung bases to symphysis pubis IV contrast information not listed in PACS Coronal, sagittal reformats CT images acquired with automatic exposure control for dose reduction DLP: 209 mGy-cm Findings: Lung bases: Clear. Visualized heart and pericardium: Unremarkable. Liver: Enlarged. Steatosis. Gallbladder: Unremarkable. Spleen: Unremarkable. Pancreas: Unremarkable. Adrenal glands: Unremarkable. Kidneys: Right kidney- No hydronephrosis. No renal stones. Left kidney- No hydronephrosis. No renal stones. Distal esophagus/stomach: Unremarkable. Small bowel loops: Normal caliber and wall thickness. Colon: Apparent mild diffuse wall thickening but under distended. Normal RLQ appendix. Nodes: No enlarged nodes. Peritoneum: No ascites. No free air. Urinary bladder: Unremarkable. Uterus: Unremarkable. Adnexa: No masses. Bones: No acute bony abnormality. Soft tissues: Unremarkable. Aorta: No aneurysm or dissection. IVC: Unremarkable. Main portal vein/SMV/splenic vein: Patent. IMPRESSION: 1. Minimal colitis possible. 2. Otherwise no acute abnormality, with additional findings as above. Reviewed, dictated and finalized at location R. [employer]
[2025-01-06 07:57] VITALS: BP 120/82; PULSE 68; RESP 16; TEMP 36.4; O2SAT 100
[2025-01-06 08:10] LABS: Hematocrit 36.4 % (37.0-47.0); Hemoglobin 11.6 g/dL (12.0-15.0); Immature Granulocyte Percent A 0.8 % (0-0.5); Lymphocytes Absolute Auto 1.03 K/mm3 (0.9-3.2); Mean Corpuscular HGB Conc 31.9 g/dl (32-36); Mean Corpuscular Hemoglobin 28.2 pg (26-34); Mean Corpuscular Volume 88.3 fl (80-100); Nucleated Red Blood Cells Absolute Auto 0.000 K/mm3 (0.0-0.012); Nucleated Red Blood Cells Perc 0.0 % (0.0-0.2); Platelet Count Result 335 k/mm3 (150-375); Red Blood Count 4.12 M/mm3 (4.2-5.4); White Blood Count 18.6 K/mm3 (4.5-10.0)
--- NOTE | 2025-01-06 08:10 | ED.ABDPAIN ---
HPI - Abdominal Pain General Chief Complaint: Abdominal Pain Stated Complaint: abdominal pain, N/V Time Seen by Provider: 01/06/25 08:09 Source: patient and family Mode of arrival: ambulatory Limitations: no limitations History of Present Illness HPI narrative: NAUSEA VOMITING UPPER ABDOMINAL PAIN STARTED 12 HOURS PRIOR TO ARRIVAL ASSOCIATED WITH CHILLS. PATIENT DENIES RADIATION OF PAIN, AGGRAVATING OR RELIEVING FACTORS. Related Data Home Medications ?Medication ?Instructions ?Recorded ?Confirmed ?Last Taken ?Type dextroamphetamine-amphetamine 10 20 mg PO DAILY 12/25/21 04/06/24 Unknown History mg tablet lorazepam 1 mg tablet 2 mg PO HS 12/25/21 04/06/24 Unknown History cariprazine 3 mg capsule (Vraylar) 3 mg PO HS 05/22/23 04/06/24 Unknown History mirtazapine 15 mg tablet 15 mg PO HS 05/22/23 04/06/24 Unknown History Allergies Allergy/AdvReac Type Severity Reaction Status Date / Time No Known Allergies Allergy Verified 01/06/25 08:00 Review of Systems Review of Systems: All systems reviewed & are unremarkable except as noted in HPI and below PMFSH Past Medical History Medical History Dental caries ADHD Substance abuse Accidental overdose Bipolar 1 disorder No pertinent past medical history Surgical History Surgical History History of umbilical hernia repair H/O wisdom tooth extraction No pertinent past surgical history Family History Family History Other Unknown family medical history Social History Social History Social History: She lives with her father, mother, and sister at home. She recently quit her job at [employer] and is currently unemployed and is not currently in school. Years smoked: 5 Smoking status: Current every day smoker Tobacco type: e-cigarettes/vaping Alcohol intake: current Drinks per week: 2 Alcohol use details: Beer Substance use: current Substance use type: marijuana, crack/cocaine and prescription drug Do You Feel Safe in your Home?: Yes Lack of Transportation: No Lack of Food: Never True Current Housing: I Have Housing Concerned About Future Housing: No Difficulty Paying Gas/Electric Bills: No Difficulty Paying for Meds: No Currently Unemployed: No Education: High School Diploma/GED Difficulty w/ Childcare or Family Care: No Living arrangements: with family Occupation/Education: unemployed Gender identity (if verbalized by the patient): Female Sexual Orientation (if Verbalized by the Patient): Lesbian, Dudley, or Homosexual Spiritual care concerns: No Exam Narrative: GENERAL APPEARANCE: WELL-DEVELOPED, MALNOURISHED, PALE, LOOKS ILL SKIN: PALE HEAD: NORMOCEPHALIC, NONTRAUMATIC EYES: CLEAR CONJUNCTIVA ENT: OROPHARYNX NORMAL, EARS NORMAL, NOSE NORMAL NECK: SUPPLE, NONTENDER CHEST AND RESPIRATORY: AIRWAY PATENT, NO RESPIRATORY DISTRESS, NO ACCESSORY MUSCLE USE HEART: REGULAR RATE/RHYTHM ABDOMEN: SOFT, DIFFUSE TENDERNESS UPPER ABDOMEN, POSITIVE GUARDING, NO REBOUND, NO ORGANOMEGALY, QUIET BOWEL SOUNDS VASCULAR: NORMAL PERIPHERAL PULSES, NORMAL CAPILLARY REFILL. MUSCULOSKELETAL: NORMAL RANGE OF MOTION, NONTENDER BACK NEUROLOGIC: ALERT AND ORIENTED ?3, CAFETERIA CASHIER IS NORMAL TESTED, NO GROSS MOTOR DEFICIT Course Vital Signs Vital signs: Vital Signs Temperature 36.4 C 01/06/25 07:57 Pulse Rate 68 01/06/25 07:57 Respiratory Rate 16 01/06/25 07:57 Blood Pressure 120/82 01/06/25 07:57 Pulse Oximetry 100 01/06/25 07:57 Oxygen Delivery Room Air 01/06/25 07:57 Temperature 36.4 C 01/06/25 07:57 Pulse Rate 76 01/06/25 10:58 Respiratory Rate 16 01/06/25 10:58 Blood Pressure 120/84 01/06/25 10:58 Pulse Oximetry 100 01/06/25 10:58 Oxygen Delivery Room Air 01/06/25 07:57 MDM - Abdominal Pain MDM Narrative Medical decision making narrative: PATIENT CAME TO THE HOSPITAL WITH ABDOMINAL PAIN AND FREQUENT VOMITING VITAL SIGNS ARE STABLE PHYSICAL EXAMINATION SHOWING ILL LOOKING PATIENT, PALE WITH UPPER ABDOMINAL TENDERNESS DIFFERENTIAL DIAGNOSIS INCLUDE VIRAL GASTROENTERITIS, CHOLECYSTITIS, GASTRITIS, APPENDICITIS, COLITIS, DIVERTICULITIS, CONSTIPATION, URINARY TRACT INFECTION, ANXIETY LIKE SYMPTOMS. BLOOD WORKUP INCLUDES CBC, CMP, LIPASE AND SHOWED WBC 18.6 GLUCOSE 141, URINALYSIS SHOWED NO SIGNIFICANT ABNORMALITY CT ABDOMEN AND PELVIS WITH IV CONTRAST SHOWED POSSIBLE MINIMAL COLITIS PATIENT'S SYMPTOM RESOLVED AFTER IV REGLAN AND BENADRYL. STRESS INDUCING ABDOMINAL PAIN AND VOMITING IS LIKELY. DISCHARGED ON ZOFRAN AND BENTYL. THE PT WAS DISCHARGED TO HOME.THE PT,S CONDITION UPON DISCHARGE WAS FAIR,EDUCATION WAS PROVIDED TO THE PT IN REFERENCE TO THE FINAL IMPRESSION,DISCHARGE STUDY RESULTS,TREATMENT,PROGNOSIS AND NEED FOR FOLLOW UP . Differential Diagnosis Differential diagnosis: Likely other ( ABOVE) Lab Data Attestation: I reviewed the patient's lab results. 01/06/25 08:03 01/06/25 08:03 Labs: Lab Results 01/06/25 01/06/25 01/06/25 Range/Units 08:03 09:08 09:09 WBC 18.6 H (4.5-10.0) K/mm3 RBC 4.12 L (4.2-5.4) M/mm3 Hgb 11.6 L (12.0-15.0) g/dL Hct 36.4 L (37.0-47.0) % MCV 88.3 (80-100) fl MCH 28.2 (26-34) pg MCHC 31.9 L (32-36) g/dl RDW 15.8 H (11.5-14.5) % Plt Count 335 (150-375) k/mm3 MPV 11.1 H (7.4-10.4) fl Immature Gran % (Auto) 0.8 H (0-0.5) % Neut % (Auto) 89.5 H (45.5-73.1) % Lymph % (Auto) 5.5 L (18.3-44.2) % [place] % (Auto) 3.7 (2.6-8.5) % Eos % (Auto) 0.1 (0-4.4) % Baso % (Auto) 0.4 (0.2-1.2) % Lymph # (Auto) 1.03 (0.9-3.2) K/mm3 [place] # (Auto) 0.7 H (0.1-0.6) K/mm3 Eos # (Auto) 0.0 (0-0.3) K/mm3 Baso # (Auto) 0.1 (0.0-0.1) K/mm3 Abs Immat Gran (auto) 0.14 H (0.00-0.031) K/mm3 Absolute Neuts (auto) 16.7 H (1.3-6.7) K/mm3 Absolute Nucleated RBC 0.000 (0.0-0.012) K/mm3 Nucleated RBC % 0.0 (0.0-0.2) % Sodium 140 (137-145) mmol/L Potassium 3.7 (3.4-5.0) mmol/L Chloride 106 (98-107) mmol/L Carbon Dioxide 22 (22-30) mmol/L Anion Gap 12 (4-12) mmol/L BUN 11 (7-17) mg/dL Creatinine 0.57 L (0.7-1.0) mg/dL Estim Creat Clear Calc 91 ml/min Estimated GFR > 60 (59 - ) Glucose 141 H (65-110) mg/dL Calcium 8.8 (8.4-10.2) mg/dL Total Bilirubin 0.6 (0.2-1.3) mg/dL AST 65 H (14-36) U/L ALT 45 H (6-35) U/L Alkaline Phosphatase 75 (38-126) U/L Total Protein 8.5 H (6.3-8.2) g/dL Albumin 5.1 (3.5-5.1) g/dL Lipase 43 (23-300) U/L Urine Color Yellow (Yellow) Urine Appearance Clear (Clear) Urine pH 7.0 (5.0-9.0) Ur Specific [place] 1.026 (1.001-1.035) Urine Protein 2+ H (Negative) mg/dL Urine Glucose (UA) Negative (Negative) mg/dL Urine Ketones 1+ H (Negative) mg/dL Ur Blood (Man) Negative (Negative) Urine Nitrate Negative (Negative) Urine Bilirubin Negative (Negative) Urine Urobilinogen 1.0 (<2.0) mg/dL Leukocyte Esterase Rfl Negative (Negative) ZULMA/UL Urine RBC 0-2 (0-2) /hpf Urine WBC 0-5 (0-3) /hpf Ur Squamous Epith Cells Occasional (Few) /hpf Urine Bacteria Rare /hpf Urine Casts 0-2 POC Urine HCG, Qual Negative (Negative) Imaging Data Radiologist's impression: ITS Impressions Abdomen/Pelvis CT 01/06/25 09:25 IMPRESSION: 1. Minimal colitis possible. 2. Otherwise no acute abnormality, with additional findings as above. Critical Care Time Critical Care Time Critical Care Time: No Discharge Plan Discharge Clinical Impression: Vomiting, Anxiety-like symptoms, Leukocytosis Patient Disposition: Home Condition: Improved Instructions: Stress (ED), Acute Nausea and Vomiting (DC) Additional Instructions: RETURN IF SYMPTOMS ARE WORSENING , CALL YOUR FAMILY PHYSICIAN FOR APPOINTMENT, TAKE TYLENOL NEEDED FOR ACHES AND PAIN, CONTINUE HOME MEDICATIONS. Patient Language: Danish Prescriptions: New ondansetron 4 mg tablet,disintegrating 4 mg PO Q4H 0 Days Qty: 10 0RF Rx Instructions: 1st dose 1-2 hr before radiation dicyclomine 20 mg tablet 20 mg PO QID Qty: 20 0RF No Action dextroamphetamine-amphetamine 10 mg tablet 20 mg PO DAILY lorazepam 1 mg tablet 2 mg PO HS amoxicillin-pot clavulanate 875-125 mg tablet 1 tablet PO Q12H Qty: 14 0RF mirtazapine 15 mg tablet 15 mg PO HS Vraylar 3 mg Capsule 3 mg PO HS carvedilol 6.25 mg tablet 6.25 mg PO Q12HR 30 Days Qty: 60 1RF losartan 25 mg tablet 12.5 mg PO DAILY 30 Days Qty: 15 0RF Follow-up/Referrals: PHYSICIAN,SALES SPECIALIST [Primary Care Provider, Internal Medicine] Stand Alone Forms: Work/School Release IP
[2025-01-06 08:21] LABS: Alanine Aminotransferase 45 U/L (6-35); Albumin Level 5.1 g/dL (3.5-5.1); Alkaline Phosphatase 75 U/L (38-126); Anion Gap 12 mmol/L (4-12); Aspartate Amino Transferase 65 U/L (14-36); Bilirubin,Total 0.6 mg/dL (0.2-1.3); Blood Urea Nitrogen 11 mg/dL (7-17); Calcium 8.8 mg/dL (8.4-10.2); Carbon Dioxide 22 mmol/L (22-30); Chloride 106 mmol/L (98-107); Estimated CRCL calculation 91 ml/min; Estimated Glomerular Filt Rate > 60; Glucose 141 mg/dL (65-110); Lipase 43 U/L (23-300); Potassium 3.7 mmol/L (3.4-5.0); Sodium 140 mmol/L (137-145); Total Protein 8.5 g/dL (6.3-8.2)
[2025-01-06] MEDS: SODIUM CHLORIDE 0.9% IV 1,000 ML 999 ML IV CONT (08:36)
[2025-01-06] MEDS: ONDANSETRON INJ 4 MG/2 ML VIAL IV PUSH ×3 (08:37→09:43)
[2025-01-06] MEDS: MORPHINE SULFATE (*CRX) 4 MG/ML INJ IV PUSH (08:49)
[2025-01-06 09:12] LABS: BEDSIDEPREGUCG Negative (Negative)
[2025-01-06 09:33] LABS: Add Urine Microscopic? YES; Appearance Urine Clear (Clear); Glucose Urine UA Negative (Negative); Leukocyte Esterase Ur Negative LEU/UL (Negative); Nitrate Urine Negative (Negative); Non Pathogenic Casts 0-2; Specific Grav Ur 1.026 (1.001-1.035)
[2025-01-06] MEDS: METOCLOPRAMIDE HCL INJ 10 MG/2 ML VIAL IV PUSH (09:43)
--- OUTSIDE RECORDS SUMMARY | 2025-01-06 10:56 | XMS_ITS | Clinical Summary ---
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
--- OUTSIDE RECORDS SUMMARY | 2025-01-06 10:56 | XMS_ITS | Data Portability ---
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 Not Available [facility] [address] [place], [phone], 08/29/2021 12:23:33 08/24/19 22 08/23/2021 CT/GC (SHALONDA) , THINP REP VIAL chlamydia trachomatis, PCR Negati ve negati ve Not Available [facility] [address] [place], [phone], 08/29/2021 12:23:33 08/24/19 22 08/23/2021 CT/GC (SHALONDA) , THINP REP VIAL neisseria gonorrhoeae, PCR Negati ve negati ve Not Available [facility] [address] [place], [address], 08/29/2021 12:23:33 08/24/19 22 08/23/2021 TRICH OMONA S VAGIN RY (RRNA ) trichomonas vaginalis ribosomal RNA (rrna) Negati ve negati ve Not Available [facility] [id number] [place] [address], [phone], 08/29/2021 12:23:34 Result Notes None recorded. Procedures Surgical History Date Name Laterality Status Provider Name and Address Organization Details Recorded Time Hernia repair w/mesh completed [facility] 08/23/2021 10:05:38 extraction of wisdom tooth completed [facility] 08/23/2021 10:06:35 Imaging Results None recorded. [...] Updated DateTime 08/23/2021 163.83 cm 19.1 kg/m2 51471.94 g 112/76 mm[Hg] Na[facility] 08/23/2021 10:01:59 Social History Question Answer Notes LastModified by Organizat ion Details LastModified Time Tobacco Smoking Status Current Every Day Smoker Nahed [facility] 08/23/2021 10:05:14 Do You Have [...] Or The Highest Degree You Have Received? 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 No Information not available 08/23/2021 What is your exercise level? Occasional Information not available 08/23/2021 Mental Status Question Answer Note LastModified by Organization D etails LastModified Time Do you feel stressed (tense, restless, nervous, or anxious, or unable to sleep at night)? [id number] Information not available 08/23/2021 Family History Nothing [...] ICD10 Code Diagnosis IMO Codes Diagnosis Note [id number] MYRON [facility] [address] [address] 08/23/2021 09:43:39 08/23/2021 10:33:59 Gynecologic examination [id number] Z01.419 Take Calcium with Vitamin D 1200mg [...] Larkin Member ID Guarantor Name 08/23/2021 [facility] (MEDICARE REPLACEMENT/A DVANTAGE - PPO) [id number] Luli Jose Alfredo [id number] Luli Jose Alfredo 08/27/2021 1 BS-UT (PPO) [id number] Cruz P Jose Alfredo [id number] Luli Jose Alfredo Notes Date Note [...] andfollowed with yearly pap smears. Valerie Lezama, [facility]- [address], [place], [address], [place] [facility] 08/23/2021 10:30:52 OBGyn Episode No OBEpisode recorded.
--- OUTSIDE RECORDS SUMMARY | 2025-01-06 10:56 | XMS_ITS | Data Portability ---
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 Encounter Date Assessment Date Assessment LastModified [...] TV, RNA, unspecifie d specimen 2023 024 [employer] [facility], [address], [place], [address], 4 13:01:33 RPR (rapid plasma reagin), titer, serum 2023 024 [employer] [facility], [address], [place], [address], 4 13:01:34 hsv (1+2) igg Ab, serum 2023 024 [facility], [address], [address], [place], [address], 4 13:01:28 hepatitis panel (A+B+C), acute, serum 2023 024 [facility], [address], [address], [place], [address], 4 15:27:24 HIV 1+2 Ab + HIV1 p24 Ag, quantitati ve immunoassa y, serum 2023 024 [facility], [address], [address], [place], [address], 4 15:27:25 vitamin B1 (thiamine) , blood 2023 024 [employer] [facility], [address], [address], [place], [address], 4 08:13:17 vitamin B6 (pyridoxin e), plasma 2023 024 [employer] [facility], [address], [address], [place], [address], 4 08:13:17 vitamin B12, serum 2023 024 [employer] [facility], [address], [place], [address], 4 08:13:17 TSH + free T4, serum 2023 024 [employer] [facility], [address], [address], [place], [address], 4 08:13:17 T3, free, serum or plasma 2023 024 [facility], [address], [address], [place], [address], 4 08:13:17 CMP, serum or plasma 2023 024 [facility], [address], [address], [place], [address], 4 08:13:17 CBC w/ auto diff 2023 024 [facility], [address], [address], [place], [address], 4 08:13:18 lipid panel, serum 2023 024 [facility], [address], [address], [place], [address], 4 15:27:24 magnesium, serum or plasma 2023 024 [facility], [address], [address], [place], [address], 4 08:13:18 CT + NG + TV, RNA, unspecifie d specimen 2020 021 [facility], [address], [address], [place], [address], 1 15:55:25 RPR (rapid plasma reagin), titer, serum 2020 021 [facility], [address], [address], [place], [address], 1 15:55:23 hsv (1+2) igg Ab, serum 2020 021 [facility], [address], [address], [place], [address], 1 15:55:25 hepatitis panel (A+B+C), acute, serum 2020 [facility], [facility] [address], [address], [place], [address], 23:20:42 HIV 1+2 Ab + HIV1 p24 Ag, quantitati ve immunoassa y, serum 2020 [facility], [facility] [address], [address], [place], [address], 23:20:42 microalbum in/creatin ine, mass ratio, urine 2020 [facility], [facility] [address], [place], [address], 08:31:47 BMP, serum or plasma 2020 [facility], [facility] [address], [place], [address], 08:31:47 magnesium, serum or plasma 2020 [facility] [address], [address], [place], [address], 08:31:48 CBC w/ auto diff 2020 [facility], [facility] [address], [place], [address], 08:33:03 retic count, blood 2020 [facility], [facility] [address], [address], [place], [address], 08:33:03 iron + TIBC + ferritin, serum 2020 [facility], [facility], [place], [address], 08:33:03 hepatitis C Ab, serum 2020 [facility], [address], [address], [place], [address], 09:00:42 HbA1c (hemoglobi n A1c), blood 2020 [facility], [address], [address], [place], [address], 09:00:42 CBC w/ auto diff 2020 [facility], [facility] [address], [address], [place], [address], 09:00:42 CMP, serum or plasma 2020 [facility], [address], [address], [place], [address], 09:00:42 TSH + free T4, serum 2020 [facility], [address], [address], [place], [address], 09:00:42 T3, free, serum or plasma 2020 [facility], [address], [place], [address], 09:00:42 vitamin B1 (thiamine) , blood 2020 [facility], [address], [place], [address], 09:00:43 vitamin B6 (pyridoxin e), plasma 2020 [facility], [address], [place], [address], 09:00:43 vitamin B12, serum 2020 021 [facility], [address], [place], [address], 09:00:[address] referral 2023 024 [facility], [address] [place] [address], [address], 4 08:12:[address]/dietiti an referral 2020 021 [facility], [address] , [place], [address], 08:59:[address] referral 2020 021 [facility], [address] [place] [address], [address], 08:59:[address] referral 2020 021 [facility], [address], [address], [place], [address], 08:59:19 Procedures None recorded. Surgeries None recorded. Imaging electrocar diogram 2023 024 [facility], [address] , [address], [place], [address], 4 13:41:53 XR, chest, 2 view 2020 021 [facility]), [address] [facility] [address], [place], [address], 09:59:01 Medication Orders trazodone 50 mg tablet [address] [facility], [address] [place], [place], [id number], 13:00:03 ferrous sulfate 325 mg (65 mg iron) tablet 2020 021 [facility] [address] [place], [address], 15:54:49 bupropion HCl XL 300 mg 24 hr tablet, extended release 2020 021 [address] [place], [address], 4 12:38:28 Lexapro 10 mg tablet 2020 021 [address], [address] [place], [address], 12:39:13 Patient TargetsNo targets recorded. 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 for Body mass index less than 20 Referring Physician: Severo Fuentes, Internal Medicine, Encounter Date: 06/15/2020 [employer] Referral for Sc reening for malignant neoplasm of cervix Referring Physician: Severo Fuentes Internal Medicine, Encounter Date: 06/15/2020 Psychiatrist Referral for Mi xed anxiety and depressive disorder Referring Physician: Severo Fuentes Internal Medicine, Encounter Date: 06/15/2020 [employer] Referral for Sc reening for malignant neoplasm [...] Third trime ster 0.43- 2.91 Not Available [address], [address], 05/10/2020 00:36:45 05/05/19 21 05/09/2020 TSH + free T4, serum T4, free 1.1 NG/dL 0.8-1. 4 normal Not Available [address], [address], 05/10/2020 00:36:45 05/05/1905/09/2020 CMP, serum or plasm a glucose 81 mg/dL 65-99 normal Fasti ng refer ence inter ava Not Available [address], [address], 05/10/2020 00:36:45 05/05/19 21 05/09/2020 CMP, serum or plasm a urea nitrogen (BUN) 9 mg/dL 7-20 normal Not Available [address], [address], 05/10/2020 00:36:45 05/05/19 21 05/09/2020 CMP, serum or plasm a creatinine 0.82 mg/dL 0.50-1 .00 normal Not Available [facility] [address], [address], 05/10/2020 00:36:45 05/05/19 21 05/09/2020 CMP, serum or plasm a eGFR non-afr. bruneian 104 mL/mi n/1.7 3m2 > or = 60 normal Not Available [address], [address], 05/10/2020 00:36:45 05/05/19 21 05/09/2020 CMP, serum or plasm a eGFR 120 mL/mi n/1.7 3m2 > or = 60 normal Not Available [address], [address], 05/10/2020 00:36:45 05/05/19 21 05/09/2020 CMP, serum or plasm a BUN/creatini ne ratio NOT APPLIC ABLE (calc ) 6-22 Not Available [address], [address], 05/10/2020 00:36:45 05/05/19 21 05/09/2020 CMP, serum or plasm a sodium 137 mmol/ L 135-14 6 normal Not Available [address], [address], 05/10/2020 00:36:45 05/05/19 21 05/09/2020 CMP, serum or plasm a potassium 3.7 mmol/ L 3.8-5. 1 low Not Available [address], [address], 05/10/2020 00:36:45 05/05/1905/09/2020 CMP, serum or plasm a chloride 102 mmol/ L 98-110 normal Not Available [address], [address], 05/10/2020 00:36:45 05/05/1905/09/2020 CMP, serum or plasm a carbon dioxide 28 mmol/ L 20-32 normal Not Available [address], [address], 05/10/2020 00:36:45 05/05/19 21 05/09/2020 CMP, serum or plasm a calcium 9.1 mg/dL 8.9-10 .4 normal Not Available [facility] [address], [address], 05/10/2020 00:36:45 05/05/1905/09/2020 CMP, serum or plasm a protein, total 6.8 g/dL 6.3-8. 2 normal Not Available [address], [address], 05/10/2020 00:36:45 05/05/19 21 05/09/2020 CMP, serum or plasm a albumin 4.7 g/dL 3.6-5. 1 normal Not Available [address], [address], 05/10/2020 00:36:45 05/05/1905/09/2020 CMP, serum or plasm a globulin 2.1 g/dL_ (calc ) 2.0-3. 8 normal Not Available [address], [address], 05/10/2020 00:36:45 05/05/1905/09/2020 CMP, serum or plasm a albumin/glob ulin ratio 2.2 (calc ) 1.0-2. 5 normal Not Available [address], [address], 05/10/2020 00:36:45 05/05/1905/09/2020 CMP, serum or plasm a bilirubin, total 0.5 mg/dL 0.2-1. 1 normal Not Available [address], [address], 05/10/2020 00:36:45 05/05/1905/09/2020 CMP, serum or plasm a alkaline phosphatase 56 U/L 36-128 normal Not Available [facility] [address], [address], 05/10/2020 00:36:45 05/05/19 21 05/09/2020 CMP, serum or plasm a AST 15 U/L 12-32 normal Not Available [address], [address], 05/10/2020 00:36:45 05/05/1905/09/2020 CMP, serum or plasm a ALT 12 U/L 5-32 normal Not Available [address], [address], 05/10/2020 00:36:45 05/05/1905/09/2020 CBC w/ auto diff white blood cell count 6.1 thous and/u L 3.8-10 .8 normal Not Available [address], [address], 05/10/2020 00:36:45 05/05/1905/09/2020 CBC w/ auto diff red blood cell count 3.79 stephie on/uL 3.80-5 .10 low Not Available [address], [address], 05/10/2020 00:36:45 05/05/1905/09/2020 CBC w/ auto diff hemoglobin 10.7 g/dL 11.7-1 5.5 low Not Available [address], [address], 05/10/2020 00:36:45 05/05/1905/09/2020 CBC w/ auto diff hematocrit 32.8 % 35.0-4 5.0 low Not Available [address], [address], 05/10/2020 00:36:45 05/05/1905/09/2020 CBC w/ auto diff MCV 86.5 fL 80.0-1 00.0 normal Not Available [address], [address], 05/10/2020 00:36:45 05/05/19 21 05/09/2020 CBC w/ auto diff MCH 28.2 pg 27.0-3 3.0 normal Not Available [address], [address], 05/10/2020 00:36:45 05/05/19 21 05/09/2020 CBC w/ auto diff MCHC 32.6 g/dL 32.0-3 6.0 normal Not Available [address], [address], 05/10/2020 00:36:45 05/05/19 21 05/09/2020 CBC w/ auto diff RDW 14.0 % 11.0-1 5.0 normal Not Available [address], [address], 05/10/2020 00:36:45 05/05/19 21 05/09/2020 CBC w/ auto diff platelet count 218 thous and/u L 140-40 0 normal Not Available [address], [address], 05/10/2020 00:36:45 05/05/19 21 05/09/2020 CBC w/ auto diff MPV 11.6 fL 7.5-12 .5 normal Not Available [address], [address], 05/10/2020 00:36:45 05/05/19 21 05/09/2020 CBC w/ auto diff absolute neutrophils 3623 cells /uL 1500-7 800 normal Not Available [address], [address], 05/10/2020 00:36:45 05/05/19 21 05/09/2020 CBC w/ auto diff absolute lymphocytes 1543 cells /uL 850-39 00 normal Not Available [address], [address], 05/10/2020 00:36:45 05/05/19 21 05/09/2020 CBC w/ auto diff absolute monocytes 537 cells /uL 200-95 0 normal Not Available [address], [address], 05/10/2020 00:36:45 05/05/19 21 05/09/2020 CBC w/ auto diff absolute eosinophils 317 cells /uL 15-500 normal Not Available [address], [address], 05/10/2020 00:36:45 05/05/19 21 05/09/2020 CBC w/ auto diff absolute basophils 79 cells /uL 0-200 normal Not Available [address], [address], 05/10/2020 00:36:45 05/05/19 21 05/09/2020 CBC w/ auto diff neutrophils 59.4 % normal Not Available [address], [address], 05/10/2020 00:36:45 05/05/19 21 05/09/2020 CBC w/ auto diff lymphocytes 25.3 % normal Not Available [address], [address], 05/10/2020 00:36:45 05/05/19 21 05/09/2020 CBC w/ auto diff monocytes 8.8 % normal Not Available [address], [address], 05/10/2020 00:36:45 05/05/19 21 05/09/2020 CBC w/ auto diff eosinophils 5.2 % normal Not Available [address], [address], 05/10/2020 00:36:45 05/05/19 21 05/09/2020 CBC w/ auto diff basophils 1.3 % normal Not Available [address], [place], [address], 05/10/2020 00:36:45 05/05/19 21 05/09/2020 hepat itis C virus Ab, serum hepatitis C antibody NON-RE ACTIVE non-re active normal Not Available [address], [place], [address], 05/10/2020 00:36:46 05/05/1905/09/2020 hepat itis C virus Ab, serum index 0.05 <1.00 normal HCV antib lucille was non-r eacti ve. There is no labor atory evide nce of HCV infec tion. In most cases , no furth er actio n is requi red. Howev er, if recen t HCV expos ure is suspe cted, a test for HCV RNA (test code 72343 ) is sugge sted. For addit ional infor jackie guardado pleas e refer to http: //replaced by [facility] bu[facility]rost[facility] stdia gnost ics.c om/fa q/FAQ 22v1 (This link is being provi ded for infor jackie wiley/ educa karina l purpo ses only. ) Not Available [address], [place], [address], 05/10/2020 00:36:46 05/05/1905/09/2020 vitam in B1 (thia [...] for clini loren purpo ses. Not Available [facility] [address] [address] [place], [address], 05/10/2020 00:36:46 05/05/19 21 05/09/2020 vitam in B12, serum vitamin B12 511 pg/mL 200-11 00 normal Not Available [facility] [address] [place], [address], 05/10/2020 00:36:47 05/05/1905/09/2020 T3, free, serum or plasm a T3, free 3.2 pg/mL 3.0-4. 7 normal Not Available [facility] [address] [address] [place], [address], 05/10/2020 00:36:47 05/05/1905/09/2020 HbA1c (hemo globi n [...] Diabe clare(A DA). Not Available [facility] [address] [place], [address], 05/10/2020 00:36:47 0305/09/2020 vitam in B6 (pyri doxin e), plasm a vitamin B6, plasma 5.5 NG/mL 2.1-21 .7 Vitam in suppl ement atoral withi n 24 hours prior to blood draw may affec t the accur acy of resul ts. This test was devel ashley and its betsy tical perfo rmanc e anne cteri stics have been deter mined by [facility]. It has not been clear ed or appro norm by the FDA. This assay has been valid ated pursu ant to the CLIA regul ation s and is used for clini loren purpo ses. Not Available [facility] [address] [place], [address], 05/10/2020 00:36:48 07/08/1907/12/2020 micro album in/cr eatin ine, mass ratio , urine creatinine, random urine 108 mg/dL 20-275 normal Not Available [employer] [facility] [facility] [address] [place], [address], 07/12/2020 23:20:41 07/08/1907/12/2020 micro album in/cr eatin ine, mass ratio , urine albumin, urine 0.4 mg/dL see note: normal Refer ence Range : Refer ence Range Not estab lishe d Not Available [employer] [address] [place], [address], 07/12/2020 23:20:41 07/08/1907/12/2020 micro album in/cr eatin [...] a diagn ostic categ ory. Not Available [address], [address], 07/12/2020 23:20:41 07/08/19 21 07/12/2020 hepat itis panel (A+B+ C), acute , serum hepatitis A IgM NON-RE ACTIVE non-re active normal For addit ional infor sheyla pérez e refer to http: //[facility] yuli guardado.jose robledoia gnost ics.c om/fa q/FAQ (This link is being provi ded for salo wiley/ keenan langeo ses only. ) Not Available [address], [address], 07/12/2020 23:20:42 07/08/19 21 07/12/2020 hepat itis panel (A+B+ C), acute , serum hepatitis B surface antigen NON-RE ACTIVE non-re active normal Not Available [address], [address], 07/12/2020 23:20:42 07/08/19 21 07/12/2020 hepat itis panel (A+B+ C), acute , serum hepatitis B core antibody (IgM) NON-RE ACTIVE non-re active normal Not Available [address], [address], 07/12/2020 23:20:42 07/08/19 21 07/12/2020 hepat itis panel (A+B+ C), acute , serum hepatitis C antibody NON-RE ACTIVE non-re active normal Not Available [address], [address], 07/12/2020 23:20:42 07/08/19 21 07/12/2020 hepat itis [...] a test for HCV RNA (test code 74574 ) is sugge sted. For addit ional infor matio n pleas e refer to http: //[facility] nMoisesque stdia gnost ics.c om/fa q/FAQ 22v1 (This link is being provi ded for infor matio nal/ educa karina l purpo ses only. ) Not Available [facility] [employer] [address], [address], 07/12/2020 23:20:42 07/08/19 21 07/12/2020 HIV 1+2 [...] matio n pleas e refer to http: //[facility] nbrittney stdia gnost ics.c om/fa q/FAQ 106 (This link is being provi ded for infor matio nal/ educa karina l purpo ses only. ) The perfo rmanc e of this assay has not been clini bettye valid ated in patie nts less than 2 years old. Not Available [address], [address], 07/12/2020 23:20:42 07/08/19 21 07/12/2020 magne sium, serum or plasm a magnesium 1.9 mg/dL 1.5-2. 5 normal Not Available [address], [address], 07/12/2020 23:20:43 07/08/19 21 07/12/2020 BMP, serum or plasm a glucose 89 mg/dL 65-139 normal Non-f astin g refer ence inter ava Not Available [address], [address], 07/12/2020 23:20:43 07/08/19 21 07/12/2020 BMP, serum or plasm a urea nitrogen (BUN) 13 mg/dL 7-25 normal Not Available [address], [address], 07/12/2020 23:20:43 07/08/19 21 07/12/2020 BMP, serum or plasm a creatinine 0.81 mg/dL 0.50-1 .10 normal Not Available [facility] [address], [address], 07/12/2020 23:20:43 07/08/19 21 07/12/2020 BMP, serum or plasm a eGFR non-afr. bruneian 105 mL/mi n/1.7 3m2 > or = 60 normal Not Available [facility] [address], [address], 07/12/2020 23:20:43 07/08/19 21 07/12/2020 BMP, serum or plasm a eGFR 121 mL/mi n/1.7 3m2 > or = 60 normal Not Available [facility] [address], [address], 07/12/2020 23:20:43 07/08/19 21 07/12/2020 BMP, serum or plasm a BUN/creatini ne ratio NOT APPLIC ABLE (calc ) 6-22 Not Available [facility] [address], [address], 07/12/2020 23:20:43 07/08/19 21 07/12/2020 BMP, serum or plasm a sodium 136 mmol/ L 135-14 6 normal Not Available [facility] [address], [address], 07/12/2020 23:20:43 07/08/19 21 07/12/2020 BMP, serum or plasm a potassium 4.2 mmol/ L 3.5-5. 3 normal Not Available [facility] [address], [address], 07/12/2020 23:20:43 07/08/19 21 07/12/2020 BMP, serum or plasm a chloride 105 mmol/ L 98-110 normal Not Available [address], [address], 07/12/2020 23:20:43 07/08/19 21 07/12/2020 BMP, serum or plasm a carbon dioxide 28 mmol/ L 20-32 normal Not Available [address], [address], 07/12/2020 23:20:43 07/08/19 21 07/12/2020 BMP, serum or plasm a calcium 9.3 mg/dL 8.6-10 .2 normal Not Available [address], [address], 07/12/2020 23:20:43 07/08/19 21 07/12/2020 hsv (1+2) igm Ab, quant , serum , refle x titer hsv 1 IgM screen NEGATI VE normal Not Available [facility] [address], [address], 07/12/2020 23:20:44 07/08/19 21 07/12/2020 hsv (1+2) [...] for clini loren purpo ses. Not Available [facility] [address], [address], 07/12/2020 23:20:44 09/22/19 23 09/23/2022 IRON, TIBC AND JESUS TIN PANEL iron, total 132 mcg/d L 40-190 normal Not Available [facility] [address], [address], 09/23/2022 15:33:32 09/22/19 23 09/23/2022 IRON, TIBC AND JESUS TIN PANEL iron binding capacity 361 mcg/d L_(ca lc) 250-45 0 normal Not Available [facility] [address], [address], 09/23/2022 15:33:32 09/22/19 23 09/23/2022 IRON, TIBC AND JESUS TIN PANEL % saturation 37 %_(ca lc) 16-45 normal Not Available [facility] [address], [address], 09/23/2022 15:33:32 09/22/19 23 09/23/2022 IRON, TIBC AND JESUS TIN PANEL ferritin 25 NG/mL 16-154 normal Not Available [address], [address], 09/23/2022 15:33:32 09/22/19 23 09/23/2022 MAGNE SIUM magnesium 1.9 mg/dL 1.5-2. 5 normal Not Available [address], [address], 09/23/2022 15:33:34 09/22/19 23 09/23/2022 COMPR EHENS MAT METAB OLIC PANEL glucose 90 mg/dL 65-139 normal Non-f astin g refer ence inter ava Not Available [address], [address], 09/23/2022 15:33:35 09/22/19 23 09/23/2022 COMPR EHENS MAT METAB OLIC PANEL urea nitrogen (BUN) 12 mg/dL 7-25 normal Not Available [address], [address], 09/23/2022 15:33:35 09/22/19 23 09/23/2022 COMPR EHENS MAT METAB OLIC PANEL creatinine 0.80 mg/dL 0.50-0 .96 normal Not Available [address], [address], 09/23/2022 15:33:35 09/22/19 23 09/23/2022 COMPR EHENS MAT METAB OLIC PANEL eGFR 107 mL/mi n/1.7 3m2 > or = 60 normal Not Available [address], [address], 09/23/2022 15:33:35 09/22/19 23 09/23/2022 COMPR EHENS MAT METAB OLIC PANEL BUN/creatini ne ratio SEE NOTE: (calc ) 6-22 Not Repor tomás: BUN and Creat inine are withi n refer ence range . Not Available [address], [address], 09/23/2022 15:33:35 09/22/19 23 09/23/2022 COMPR EHENS MAT METAB OLIC PANEL sodium 139 mmol/ L 135-14 6 normal Not Available [address], [address], 09/23/2022 15:33:35 09/22/19 23 09/23/2022 COMPR EHENS MAT METAB OLIC PANEL potassium 4.1 mmol/ L 3.5-5. 3 normal Not Available [address], [address], 09/23/2022 15:33:35 09/22/19 23 09/23/2022 COMPR EHENS MAT METAB OLIC PANEL chloride 103 mmol/ L 98-110 normal Not Available [address], [address], 09/23/2022 15:33:35 09/22/19 23 09/23/2022 COMPR EHENS MAT METAB OLIC PANEL carbon dioxide 26 mmol/ L 20-32 normal Not Available [address], [address], 09/23/2022 15:33:35 09/22/19 23 09/23/2022 COMPR EHENS MAT METAB OLIC PANEL calcium 9.2 mg/dL 8.6-10 .2 normal Not Available [address], [address], 09/23/2022 15:33:35 09/22/19 23 09/23/2022 COMPR EHENS MAT METAB OLIC PANEL protein, total 6.9 g/dL 6.1-8. 1 normal Not Available [address] [address] [place], [address], 09/23/2022 15:33:35 09/22/19 23 09/23/2022 COMPR EHENS MAT METAB OLIC PANEL albumin 4.4 g/dL 3.6-5. 1 normal Not Available [address], [address], 09/23/2022 15:33:35 09/22/19 23 09/23/2022 COMPR EHENS MAT METAB OLIC PANEL globulin 2.5 g/dL_ (calc ) 1.9-3. 7 normal Not Available [address], [address], 09/23/2022 15:33:35 09/22/19 23 09/23/2022 COMPR EHENS MAT METAB OLIC PANEL albumin/glob ulin ratio 1.8 (calc ) 1.0-2. 5 normal Not Available [address] [address] [place], [address], 09/23/2022 15:33:35 09/22/19 23 09/23/2022 COMPR EHENS MAT METAB OLIC PANEL bilirubin, total 0.4 mg/dL 0.2-1. 2 normal Not Available [address], [address], 09/23/2022 15:33:35 09/22/19 23 09/23/2022 COMPR EHENS MAT METAB OLIC PANEL alkaline phosphatase 60 U/L 31-125 normal Not Available [address] [address] [place], [address], 09/23/2022 15:33:35 09/22/19 23 09/23/2022 COMPR EHENS MAT METAB OLIC PANEL AST 14 U/L 10-30 normal Not Available [address], [address], 09/23/2022 15:33:35 09/22/19 23 09/23/2022 COMPR EHENS MAT METAB OLIC PANEL ALT 11 U/L 6-29 normal Not Available [address], [address], 09/23/2022 15:33:35 09/22/19 23 09/23/2022 RETIC ULOCY TE COUNT reticulocyte count, automated 1.1 % normal Not Available [address], [address], 09/23/2022 15:33:35 09/22/19 23 09/23/2022 RETIC ULOCY TE COUNT reticulocyte , absolute 33456 cells /uL 20495- 14452 normal Not Available [address], [address], 09/23/2022 15:33:35 09/22/19 23 09/23/2022 CBC (INCL UDES DIFF/ PLT) white blood cell count 6.3 thous and/u L 3.8-10 .8 normal Not Available [address], [address], 09/23/2022 15:33:36 09/22/19 23 09/23/2022 CBC (INCL UDES DIFF/ PLT) red blood cell count 4.12 stephie on/uL 3.80-5 .10 normal Not Available [address], [address], 09/23/2022 15:33:36 09/22/19 23 09/23/2022 CBC (INCL UDES DIFF/ PLT) hemoglobin 12.6 g/dL 11.7-1 5.5 normal Not Available [address], [address], 09/23/2022 15:33:36 09/22/19 23 09/23/2022 CBC (INCL UDES DIFF/ PLT) hematocrit 38.7 % 35.0-4 5.0 normal Not Available [address], [address], 09/23/2022 15:33:36 09/22/19 23 09/23/2022 CBC (INCL UDES DIFF/ PLT) MCV 93.9 fL 80.0-1 00.0 normal Not Available [address], [address], 09/23/2022 15:33:36 09/22/19 23 09/23/2022 CBC (INCL UDES DIFF/ PLT) MCH 30.6 pg 27.0-3 3.0 normal Not Available [address], [address], 09/23/2022 15:33:36 09/22/19 23 09/23/2022 CBC (INCL UDES DIFF/ PLT) MCHC 32.6 g/dL 32.0-3 6.0 normal Not Available [address], [address], 09/23/2022 15:33:36 09/22/19 23 09/23/2022 CBC (INCL UDES DIFF/ PLT) RDW 12.8 % 11.0-1 5.0 normal Not Available [address], [address], 09/23/2022 15:33:36 09/22/19 23 09/23/2022 CBC (INCL UDES DIFF/ PLT) platelet count 263 thous and/u L 140-40 0 normal Not Available [address], [address], 09/23/2022 15:33:36 09/22/19 23 09/23/2022 CBC (INCL UDES DIFF/ PLT) MPV 11.5 fL 7.5-12 .5 normal Not Available [address], [address], 09/23/2022 15:33:36 09/22/19 23 09/23/2022 CBC (INCL UDES DIFF/ PLT) absolute neutrophils 3163 cells /uL 1500-7 800 normal Not Available [address], [address], 09/23/2022 15:33:36 09/22/19 23 09/23/2022 CBC (INCL UDES DIFF/ PLT) absolute lymphocytes 2230 cells /uL 850-39 00 normal Not Available [address], [address], 09/23/2022 15:33:36 09/22/19 23 09/23/2022 CBC (INCL UDES DIFF/ PLT) absolute monocytes 567 cells /uL 200-95 0 normal Not Available [address], [address], 09/23/2022 15:33:36 09/22/19 23 09/23/2022 CBC (INCL UDES DIFF/ PLT) absolute eosinophils 302 cells /uL 15-500 normal Not Available [address], [address], 09/23/2022 15:33:36 09/22/19 23 09/23/2022 CBC (INCL UDES DIFF/ PLT) absolute basophils 38 cells /uL 0-200 normal Not Available [address], [address], 09/23/2022 15:33:36 09/22/19 23 09/23/2022 CBC (INCL UDES DIFF/ PLT) neutrophils 50.2 % normal Not Available [address], [address], 09/23/2022 15:33:36 09/22/19 23 09/23/2022 CBC (INCL UDES DIFF/ PLT) lymphocytes 35.4 % normal Not Available [address], [address], 09/23/2022 15:33:36 09/22/19 23 09/23/2022 CBC (INCL UDES DIFF/ PLT) monocytes 9.0 % normal Not Available [facility] [address], [address], 09/23/2022 15:33:36 09/22/19 23 09/23/2022 CBC (INCL UDES DIFF/ PLT) eosinophils 4.8 % normal Not Available [facility] [address], [address], 09/23/2022 15:33:36 09/22/19 23 09/23/2022 CBC (INCL UDES DIFF/ PLT) basophils 0.6 % normal Not Available [address], [address], 09/23/2022 15:33:36 09/22/19 23 09/23/2022 T4, FREE T4, free 1.0 NG/dL 0.8-1. 8 normal Not Available [address], [address], 09/23/2022 15:33:37 09/22/19 23 09/23/2022 TSH TSH 4.18 mIU/L normal Refer ence Range > or = 20 Years 0.40- 4.50 Pregn nelly Range s First trime ster 0.26- 2.66 Secon d trime ster 0.55- 2.73 Third trime ster 0.43- 2.91 Not Available [address], [address], 09/23/2022 15:33:38 09/22/19 23 09/23/2022 T3, FREE T3, free 3.7 pg/mL 2.3-4. 2 normal Not Available [facility] [address], [address], 09/23/2022 15:33:39 09/22/19 23 09/23/2022 HEMOG LOBIN [...] Care in Diabe clare(A DA). Not Available [facility] [address] [address] [place], [address], 09/23/2022 15:33:40 10/13/19 24 10/17/2023 LIPID PANEL , STAND NILAM cholesterol, total 165 mg/dL <200 normal Not Available [facility] [address] [address] [place], [address], 10/17/2023 06:26:03 10/13/1910/17/2023 LIPID PANEL , STAND NILAM HDL cholesterol 75 mg/dL > or = 50 normal Not Available [facility] [address] [address] [place], [address], 10/17/2023 06:26:03 10/13/1910/17/2023 LIPID PANEL , STAND NILAM triglyceride s 81 mg/dL <150 normal Not Available [facility] [address] [place], [address], 10/17/2023 06:26:03 08/26/20 24 10/17/2023 LIPID PANEL [...] 310(1 9): 2061- 2068 (http ://ed ucati on.Sprout Route. oBaz/f aq/FA Q164) Not Available [facility] [address] [address] [place], [address], 10/17/2023 06:26:03 10/13/19 24 10/17/2023 LIPID PANEL , STAND NILAM chol/HDLC ratio 2.2 (calc ) <5.0 normal Not Available [facility] [address] [place], [address], 10/17/2023 06:26:03 10/13/19 24 10/17/2023 LIPID PANEL , STAND NILAM non HDL cholesterol 90 mg/dL _(loren c) <130 normal For patie nts with diabe clare plus 1 major ASCVD risk facto r, treat ing to a non-H DL-C goal of <100 mg/dL (LDL- C of <70 mg/dL ) is consi dered a thera peuti c optio n. Not Available [facility] [address] [place], [address], 10/17/2023 06:26:03 10/13/19 24 10/17/2023 HEPAT ITIS PANEL , ACUTE W/REF DINORA TO CONFI RMATI ON hepatitis A IgM NON-RE ACTIVE non-re active normal For addit ional infor jackie guradado pleas e refer to http: //replaced by [facility] guard[facility].que stdia gnost ics.c om/fa q/FAQ 202 (This link is being provi ded for infor matio nal/ educa karina l purpo ses only. ) Not Available [address], [address], 10/17/2023 06:26:04 10/13/19 24 10/17/2023 HEPAT ITIS PANEL , ACUTE W/REF DINORA TO CONFI RMATI ON hepatitis B surface antigen NON-RE ACTIVE non-re active normal For addit ional sheyla canada e refer to http: //[facility] yuli guardado.que stdia gnost ics.c om/fa q/FAQ 202 (This link is being provi ded for infor matio nal/ educa karina l purpo ses only. ) Not Available [facility] [address], [address], 10/17/2023 06:26:04 10/13/19 24 10/17/2023 HEPAT ITIS PANEL , ACUTE W/REF DINORA TO CONFI RMATI ON hepatitis B core antibody (IgM) NON-RE ACTIVE non-re active normal For addit ional sheyla canada e refer to http: //[facility] yuli guardado.que stdia gnost ics.c om/fa q/FAQ 202 (This link is being provi ded for infor matio nal/ educa karina l purpo ses only. ) Not Available [address], [address], 10/17/2023 06:26:04 10/13/19 24 10/17/2023 HEPAT ITIS [...] a test for HCV RNA (test code 41945 ) is sugge sted. For addit ional infor matio n pleas e refer to http: //[facility].que stdia gnost ics.c om/fa q/FAQ 22v1 (This link is being provi ded for infor matio nal/ educa karina l purpo ses only. ) Not Available [facility] [address] [place], [address], 10/17/2023 06:26:04 10/13/19 24 10/17/2023 HIV 1/2 [...] matio n pleas e refer to http: //[facility]placed [facility] n[facility]ises[facility] stdia gnost ics.c om/fa q/FAQ 106 (This link is being provi ded for infor matio nal/ educa karina l purpo ses only. ) The perfo rmanc e of this assay has not been clini bettye valid ated in patie nts less than 2 years old. Not Available [facility] [address] [place], [address], 10/17/2023 06:26:04 10/13/19 24 10/17/2023 TSH+F REE T4 TSH 2.46 mIU/L normal Refer ence Range > or = 20 Years 0.40- 4.50 Pregn nelly Range s First trime ster 0.26- 2.66 Secon d trime ster 0.55- 2.73 Third trime ster 0.43- 2.91 Not Available [address], [address], 10/17/2023 06:26:05 10/13/19 24 10/17/2023 TSH+F REE T4 T4, free 1.1 NG/dL 0.8-1. 8 normal Not Available [address], [address], 10/17/2023 06:26:05 10/13/19 24 10/17/2023 MAGNE SIUM magnesium 1.8 mg/dL 1.5-2. 5 normal Not Available [address], [address], 10/17/2023 06:26:05 10/13/19 24 10/17/2023 COMPR EHENS MAT METAB OLIC PANEL glucose 92 mg/dL 65-99 normal Fasti ng refer ence inter ava Not Available [address], [address], 10/17/2023 06:26:05 10/13/19 24 10/17/2023 COMPR EHENS MAT METAB OLIC PANEL urea nitrogen (BUN) 9 mg/dL 7-25 normal Not Available [address], [address], 10/17/2023 06:26:05 10/13/19 24 10/17/2023 COMPR EHENS MAT METAB OLIC PANEL creatinine 0.67 mg/dL 0.50-0 .96 normal Not Available [address], [address], 10/17/2023 06:26:05 10/13/19 24 10/17/2023 COMPR EHENS MAT METAB OLIC PANEL eGFR 126 mL/mi n/1.7 3m2 > or = 60 normal Not Available [address], [address], 10/17/2023 06:26:05 10/13/19 24 10/17/2023 COMPR EHENS MAT METAB OLIC PANEL BUN/creatini ne ratio SEE NOTE: (calc ) 6-22 Not Repor tomás: BUN and Creat inine are withi n refer ence range . Not Available [address], [address], 10/17/2023 06:26:05 10/13/19 24 10/17/2023 COMPR EHENS MAT METAB OLIC PANEL sodium 134 mmol/ L 135-14 6 low Not Available [address], [address], 10/17/2023 06:26:05 10/13/19 24 10/17/2023 COMPR EHENS MAT METAB OLIC PANEL potassium 3.9 mmol/ L 3.5-5. 3 normal Not Available [address], [address], 10/17/2023 06:26:05 10/13/19 24 10/17/2023 COMPR EHENS MAT METAB OLIC PANEL chloride 104 mmol/ L 98-110 normal Not Available [address], [address], 10/17/2023 06:26:05 10/13/19 24 10/17/2023 COMPR EHENS MAT METAB OLIC PANEL carbon dioxide 25 mmol/ L 20-32 normal Not Available [address], [address], 10/17/2023 06:26:05 10/13/19 24 10/17/2023 COMPR EHENS MAT METAB OLIC PANEL calcium 9.1 mg/dL 8.6-10 .2 normal Not Available [address], [address], 10/17/2023 06:26:05 10/13/19 24 10/17/2023 COMPR EHENS MAT METAB OLIC PANEL protein, total 6.7 g/dL 6.1-8. 1 normal Not Available [address], [address], 10/17/2023 06:26:05 10/13/19 24 10/17/2023 COMPR EHENS MAT METAB OLIC PANEL albumin 4.4 g/dL 3.6-5. 1 normal Not Available [address], [address], 10/17/2023 06:26:05 10/13/19 24 10/17/2023 COMPR EHENS MAT METAB OLIC PANEL globulin 2.3 g/dL_ (calc ) 1.9-3. 7 normal Not Available [address], [address], 10/17/2023 06:26:05 10/13/19 24 10/17/2023 COMPR EHENS MAT METAB OLIC PANEL albumin/glob ulin ratio 1.9 (calc ) 1.0-2. 5 normal Not Available [facility] [address], [address], 10/17/2023 06:26:05 10/13/19 24 10/17/2023 COMPR EHENS MAT METAB OLIC PANEL bilirubin, total 0.6 mg/dL 0.2-1. 2 normal Not Available [address], [address], 10/17/2023 06:26:05 10/13/19 24 10/17/2023 COMPR EHENS MAT METAB OLIC PANEL alkaline phosphatase 56 U/L 31-125 normal Not Available [address] [address] [place], [address], 10/17/2023 06:26:05 10/13/19 24 10/17/2023 COMPR EHENS MAT METAB OLIC PANEL AST 14 U/L 10-30 normal Not Available [address] [address] [place], [address], 10/17/2023 06:26:05 10/13/19 24 10/17/2023 COMPR EHENS MAT METAB OLIC PANEL ALT 11 U/L 6-29 normal Not Available [address], [address], 10/17/2023 06:26:05 10/13/19 24 10/17/2023 CBC (INCL UDES DIFF/ PLT) white blood cell count 4.4 thous and/u L 3.8-10 .8 normal Not Available [address], [address], 10/17/2023 06:26:06 10/13/19 24 10/17/2023 CBC (INCL UDES DIFF/ PLT) red blood cell count 3.99 stephie on/uL 3.80-5 .10 normal Not Available [address], [address], 10/17/2023 06:26:06 10/13/19 24 10/17/2023 CBC (INCL UDES DIFF/ PLT) hemoglobin 11.7 g/dL 11.7-1 5.5 normal Not Available [address], [address], 10/17/2023 06:26:06 10/13/19 24 10/17/2023 CBC (INCL UDES DIFF/ PLT) hematocrit 37.0 % 35.0-4 5.0 normal Not Available [address] [place], [address], 10/17/2023 06:26:06 10/13/19 24 10/17/2023 CBC (INCL UDES DIFF/ PLT) MCV 92.7 fL 80.0-1 00.0 normal Not Available [address], [address], 10/17/2023 06:26:06 10/13/19 24 10/17/2023 CBC (INCL UDES DIFF/ PLT) MCH 29.3 pg 27.0-3 3.0 normal Not Available [address], [address], 10/17/2023 06:26:06 10/13/19 24 10/17/2023 CBC (INCL UDES DIFF/ PLT) MCHC 31.6 g/dL 32.0-3 6.0 low Not Available [address], [address], 10/17/2023 06:26:06 10/13/19 24 10/17/2023 CBC (INCL UDES DIFF/ PLT) RDW 12.4 % 11.0-1 5.0 normal Not Available [address], [address], 10/17/2023 06:26:06 10/13/19 24 10/17/2023 CBC (INCL UDES DIFF/ PLT) platelet count 228 thous and/u L 140-40 0 normal Not Available [address], [address], 10/17/2023 06:26:06 10/13/19 24 10/17/2023 CBC (INCL UDES DIFF/ PLT) MPV 11.9 fL 7.5-12 .5 normal Not Available [address], [address], 10/17/2023 06:26:06 10/13/19 24 10/17/2023 CBC (INCL UDES DIFF/ PLT) absolute neutrophils 2614 cells /uL 1500-7 800 normal Not Available [address], [address], 10/17/2023 06:26:06 10/13/19 24 10/17/2023 CBC (INCL UDES DIFF/ PLT) absolute lymphocytes 1179 cells /uL 850-39 00 normal Not Available [address], [address], 10/17/2023 06:26:06 10/13/19 24 10/17/2023 CBC (INCL UDES DIFF/ PLT) absolute monocytes 418 cells /uL 200-95 0 normal Not Available [address], [address], 10/17/2023 06:26:06 10/13/19 24 10/17/2023 CBC (INCL UDES DIFF/ PLT) absolute eosinophils 158 cells /uL 15-500 normal Not Available [address], [address], 10/17/2023 06:26:06 10/13/19 24 10/17/2023 CBC (INCL UDES DIFF/ PLT) absolute basophils 31 cells /uL 0-200 normal Not Available [address], [address], 10/17/2023 06:26:06 10/13/19 24 10/17/2023 CBC (INCL UDES DIFF/ PLT) neutrophils 59.4 % normal Not Available [address], [address], 10/17/2023 06:26:06 10/13/19 24 10/17/2023 CBC (INCL UDES DIFF/ PLT) lymphocytes 26.8 % normal Not Available [address], [address], 10/17/2023 06:26:06 10/13/19 24 10/17/2023 CBC (INCL UDES DIFF/ PLT) monocytes 9.5 % normal Not Available [facility] [address] [address] [place], [address], 10/17/2023 06:26:06 10/13/19 24 10/17/2023 CBC (INCL UDES DIFF/ PLT) eosinophils 3.6 % normal Not Available [facility] [address] [address] [place], [address], 10/17/2023 06:26:06 10/13/19 24 10/17/2023 CBC (INCL UDES DIFF/ PLT) basophils 0.7 % normal Not Available [facility] [address] [address] [place], [address], 10/17/2023 06:26:06 10/13/19 24 10/17/2023 VITAM IN [...] pg/mL will have sympt oms. Not Available [facility] [address] [address] [place], [address], 10/17/2023 06:26:06 10/13/19 24 10/17/2023 T3, FREE T3, free 3.7 pg/mL 2.3-4. 2 normal Not Available [facility] [address] [address] [place], [address], 10/17/2023 06:26:07 10/13/19 24 10/17/2023 VITAM IN B6, PLASM A vitamin B6, plasma 7.0 NG/mL 2.1-21 .7 (Note ) Vitam in suppl ement ation withi n 24 hours prior to blood draw may affec t the accur [facility] ts. This test was devel oped and its betsy tical perfo rmanc e anne cteri stics have been deter mined by [employer]. It has not been clear ed or appro norm by the FDA. This assay has been valid ated pursu ant to the CLIA regul ation s and is used for clini loren purpo ses. med fusio n [address] [facility] [address] [facility] [address] [phone] Antonia Stokes MD, PhD Not Available [facility] [address] [place], [address], 10/17/2023 06:26:07 10/13/19 24 10/17/2023 VITAM IN [...] cteri stics have been deter mined by [employer]. It has not been clear ed or appro norm by FDA. This assay has been valid ated pursu ant to the CLIA regul ation s and is used for clini loren purpo ses. med fusio n [address] [facility] [address] [facility] [address] [phone] Antonia Stokes MD, PhD Not Available [facility] [address] [place], [address], 10/17/2023 06:26:07 09/19/19 24 09/22/2023 zulema salvador am No observ ation record ed. [facility], [address], [place], [address], 09/22/2023 10:31:20 09/19/19 24 09/19/2023 elect owen salvador am No observ ation record ed. [facility], [facility] [address], [place], [address], 09/22/2023 10:31:31 Result Notes None recorded. Problems Name Problem SNOMED Code Status Onset Date Resolution Date Notes Provider Name and Address Organization Details Recorded Time Hypokalemia 49376199 Active [address] [facility] 3 09:36:21 Mixed anxiety and depressive disorder 422128280 Active 2022 Severo Fuentes MD [address], [place], [address] , [facility] 3 07:28:45 Iron deficiency anemia 07346414 Active 2022 Not Available [facility] 3 09:36:21 Problem Notes None recorded. Procedures Surgical History Date Name Laterality Status Provider Name and Address Organization Details Recorded Time Hernia Repair completed Pooja Monroe [facility] 04/17/2020 14:53:18 Imaging Results None recorded. Procedure [...] Details Last Updated DateTime 1 16 /min 62421.3 8 g 17.8 kg/m2 5 % 165.1 cm 98.4 [degF] 80 /min 117/76 mm[Hg] [facility] 1 14:54:51 Date Recorded Body height Respiratory rate Body mass index (BMI) Body mass index (BMI) [Percentile] Per age and sex Body weight Body temperature Heart rate Systolic And Diastolic Provider Name and Address Organization Details Last Updated DateTime 1 165.1 cm 16 /min 16.6 kg/m2 1 % 84056.2 4 g 98.5 [degF] 65 /min 123/73 mm[Hg] [facility] 1 15:31:13 Date Recorded Respiratory rate Body height Body mass index (BMI) Body weight Heart rate Body temperature Systolic And Diastolic Provider Name and Address Organization Details Last Updated DateTime 4 16 /min 165.1 cm 19.5 kg/m2 56968.3 1 g 97.4 /min 97.1 [degF] 110/76 mm[Hg] Sandi Lucio [facility] 12:06:46 Social History Question Answer Notes LastModified by Organizat ion Details LastModified Time Tobacco Smoking Status Never Smoker Sandi Lucio vanessa [facility] 09/19/2023 12:08:10 Do You Have An Advance [...] Information not available 04/17/2020 What Type Of Fire Extinguisher Tester Do You Use? None Information not available [...] Or The Highest Degree You Have Received? [id number] Information not available 09/19/2023 Have There Been [...] anxious, or unable to sleep at night)? [id number] Information not available 09/19/2023 Do you have difficulty concentrating, remembering or making decisions? No Information no t available 09/19/2023 Family History Relationship Description Onset Age of this Age Resolved Age Notes LastModified by Organization Details LastModified Time Paternal Grandfather Diabetes mellitus [email or web address] Not available 2020 14:40:06 Paternal Grandfather Heart disease [place] in his 60's and pace [email or web address] [email or web address] [...] ICD10 Code Diagnosis IMO Codes Diagnosis Note [id number] Severo Fuentes MD [employer] [facility] [place] ,[place] [address] [place] [phone] 04/17/2020 13:47:40 04/17/2020 15:16:35 Mixed anxiety and depressive disorder 326207831 F41.8 (controlle d well in the last 3-4 years on Bupropion and Lexapro Family his tory of diabetes mellitus 185488706 Z83.3 Body mass index less than 20 638152214 Z68.1 -- underweigh t (just came off a Toxic relationsh ip and now gaining weight again Hepatitis C screening 41 6181841 Z11.59 Active or passive immunization 360388209 Z23 -- pt agrees to get all her pediatrics vaccinatio n records for me at her next visit. [id number] Severo Fuentes MD [employer] [facility] [place] [address] [place] [address] 06/15/2020 14:52:00 06/15/2020 16:02:45 Adult health examination 994248980 Z00.00 Mixed anxi ety and depressive disorder 297811797 F41.8 -- controlled well in the last 3-4 years on Lexapro -- no SI/HI, no delusions, & no hallucinat ions -- due to underweigh t status and increasing weight loss; I advised pt to stop the Bupropion -- I will refer her to Psychiatri sst Dr John Tanner for further eval & all future management Family his tory of diabetes mellitus 496306122 Z83.3 -- A1c level of 4.9 on 05/04/20 Body mass index less than 20 554235822 Z68.1 -- underwjennifer t (just came off a Toxic relationsh ip and pt reported she was gaining weight again at last visit -- pt today registered 7 # weight loss v Active or passive immunization 521317268 Z23 -- pt agrees to get all her pediatrics vaccinatio n records for me at her next visit. Hepatitis C screening 41 5493005 Z11.59 -- tested negative for Hep C on 05/04/20 Screening for malignant neoplasm of cervix 922547124 Z12.4 Iron defic iency anemia 25371906 D50.9 -- recheck labs around 09/13/20 Hypokalemia 39228644 E87 .6 -- pt just started on otc Potassium supplement -- recheck lab(s) within 7 days from 06/15/20 Venereal d isease screening 600868663 Z11.3 -- recheck lab(s) within 7 days from 06/15/20 [id number] Severo Fuentes MD [facility] [employer], [place] [address] [facility] ,[address] [address] 09/19/2023 10:38:12 09/19/2023 13:04:41 Harmful pattern of use of cocaine 54027988 F14.10 (+ oxcodone) Chronic sy stolic heart failure 274864302 I50.22 (in ICU w/ a life vest on; EF was 15%; left [facility] 05/27/23) -- had repeat cardiac echo at [facility] about 2 weeks ago and pt reported she was told that her heart function is now back to normal. Mixed anxi ety and depressive disorder 180459752 F41.8 -- on Mirtazapin e-- will refer pt to Psychiatri st Dr Bruce Tanner for f/u Body mass index less than 20 474291803 Z68.1 -- will advise weight gain Venereal d isease screening 428873477 Z11.3 -- recheck lab(s) within 7 days from 06/15/20 Hepatitis C screening 41 0684544 Z11.59 -- tested negative for Hep C on 05/04/20 Active or passive immunization 508180776 Z23 -- pt agrees to get all her pediatrics vaccinatio n records for me at her next visit. Screening for malignant neoplasm of cervix 365454033 Z12.4 Chronic insomnia 3303108 04 F51.04 Fatigue 07986879 R53.83 Health Concerns Section Related Observation LastModified by Organization Detai ls LastModified Time None Recorded Concern Status LastModified by Organization Details LastModified Time None Recorded Advance Directives Directive N: Payers Insurance Date Sequence Insurance Name Policy Number Policy Larkin Covered Member ID Larkin Member ID Guarantor Name 12/23/2024 1 [place] [id number] Luli Jose Alfredo [id number] Luli Jose Alfredo 12/23/2024 1 [id number] Cruz Jose Alfredo [id number] Luli Jose Alfredo 12/23/2024 1 [employer] [id number] Luli L Jose Alfredo [id number] Luli Jose Alfredo 12/23/2024 1 [place] [id number] Cruz Jose Alfredo [id number] Luli Jose Alfredo Notes Date Note Type Note Provider Name and Address Organization Details Recorded Time 04/17/2020 text/html Pt comes in to get aquainted medically. She feels well and has no c/o Patient denies any jaw or neck discomfort, left arm pain/left arm discomfort, chest discomfort/pain, diaphoresis, breathing symptoms/chest tightness, indigestion sx, n/v, any angina equivalent symptoms, etc. Severo Fuentes MD [address] [facility] [address], [place], [address], [facility] 04/17/2020 15:13:54 06/15/2020 text/html Pt comes in for f/u of anemia, low potassium, anxiety/depressio n and underweight status.Pt feeling well and has no c/o or issues. Patient denies any jaw or neck discomfort, left arm pain/left arm discomfort, chest discomfort/pain, diaphoresis, breathing symptoms/chest tightness, indigestion sx, n/v, any angina equivalent symptoms, etc. Severo Fuentes MD [address], [place], [address], [facility] 06/15/2020 16:04:38 09/19/2023 text/html Pt comes in [...] angina equivalent symptoms, etc. Severo Fuentes MD [id number] [facility] [address], [place], [id number], [facility] 09/19/2023 13:06:37 OBGyn Episode No OBEpisode recorded.
[2025-01-06 10:58] VITALS: BP 120/84; PULSE 76; RESP 16; O2SAT 100
== END 2025-01-06 11:00 | disposition home or self-care (01) ==
PROVIDERS: Emergency Provider Emergency Medicine
DX: R11.10 Vomiting, unspecified (principal); D72.829 Elevated white blood cell count, unspecified; F41.9 Anxiety disorder, unspecified; F90.9 Attention-deficit hyperactivity disorder, unspecified type; F31.9 Bipolar disorder, unspecified; F17.290 Nicotine dependence, other tobacco product, uncomplicated; Z79.899 Other long term (current) drug therapy
CPT/HCPCS: 36415; 74177; 80053; 81001; 81025; 83690; 85025; 96361; 96374; 96375; 96376; 99284; J1200; J2270; J2405; J2765; J7030; Q9967